=== PATIENT | male | born 1935 | race Caucasian/White ===

== ENCOUNTER → 2017-07-25 13:28 | Outpatient (CLI) | payer MEDICARE, SELFPAY ==
[2017-07-25 15:23] LABS: PSA,Total- Diagnostic 5.09 ng/mL (0.0-4.0)
== END ==
PROVIDERS: Visit Provider Urology
DX: N40.1 Benign prostatic hyperplasia with lower urinary tract symptoms (principal)
CPT/HCPCS: 36415; 84153

== ENCOUNTER → 2018-01-24 09:28 | Outpatient (CLI) | payer MEDICARE, SELFPAY ==
[2018-01-24 11:18] LABS: PSA,Total- Diagnostic 2.79 ng/mL (0.0-4.0)
== END ==
PROVIDERS: Family Provider Internal Medicine; PCP Internal Medicine; Visit Provider Urology
DX: C61 Malignant neoplasm of prostate (principal)
CPT/HCPCS: 84153

== ENCOUNTER 2018-08-04 11:00 | Outpatient (RCR) | payer MEDICARE, SELFPAY ==
--- NOTE | 2018-07-21 11:26 | HP.PTEVAL ---
Patient's Visit Information SNOW MURCIA is a 82 year old M referred to Physical Therapy by BIANKA RoweC with a diagnosis of DEGENERATIVE OF L-S INTERVERTEBRAL DISC,LUMBAR RADICULOPATHY,SPONDYLOTHESIS. Date of Evaluation: 07/21/18 Physical Therapist: Jesus Esteban, PT, Cert MDT, OCS - Visit Plan Frequency: 2x /Week Duration: 4 Weeks Plan: DLS,LUMBAR FLEXION,GRADED STRENGTHENING,POSTURAL EX'S ,MODALITIES NEEDED - Subjective Findings: This 82 y/o male presents to physical therapy with with low back pain with radicular symptoms.. Patient has had lumbar pain several years progressively worse past 2 years . Patient seen pain management to include 6 epidural injections,and burn injections. Patient symmtrical lumbar to lateral hip. Symptoms worse with walking standing affects ADL'S . Patient unable to walk for 10mins. Patient symptoms better siting. Coughing/sneezing-. Bowel/bladder good. C/O parathesia left hip -foot. Patient sleeping. Patient had MRI 3 years ago stenosis and disc involvement. Patient trying avoid surgery. Pateint pain affects QOL and function. Pateint has had PT. SOCIAL: . VOCATION: - Pain Bilateral Back Pain Intensity (Out of 10): 7 Pain Intensity Range: 10 Left Hip Pain Intensity (Out of 10): 7 Pain Intensity Range: 10 - Objective POSTURE: mild foward posture. GAIT: mild foward posture hips/knees flexed anatalgic gait. NEURO: c/o parathesia /tingling hip ,reflexes L3-4,L4-5,L5-S1 1/3. PALAPTION: unremarkable. SYMMTRIES: align. LUMBAR ROM: flexion min loss,extension mod/severe loss pain,side glides mod loss pain. FLEXABLITY: hams min tight. MMT: quads/hams 4/5 ,hip flexion 4-/5,hip abd 4-/5 ankle 4/5 - Special Tests L/S Slump test left side: Negative L/S Slump test right side: Negative L/S Left Straight Leg Raise: Negative L/S Right Straight Leg Raise: Negative - Goals Goal 1:: Independant with HEP Goal Time Frame: 4-6 Weeks Goal 2:: Patient to improve posture for ADL'S Goal Time Frame: 4-6 Weeks Goal 3:: Patient decrease lumbar pain and hip pain by 50% or greater to improve function with walking and standing Goal Time Frame: 4-6 Weeks Goal 4:: Patient to increase abilitity to perform walking and standing greater than 15 mis to improve functiobn Goal Time Frame: 4-6 Weeks Goal 5:: Patient to improve JASPER back score by 5 points or greater to improve function. - Rehabilitation Potential Physical Therapy Diagnosis: This patient has chronic lumbar pain with symptoms radiating to hip worse with walking ,standing affects ADL'S ,flexion better thus benifit from skilled PT Rehabilitation Potential: Good - Anticipated Interventions Patient/Client Instruction: Educate patient on: Condition, Plan of Care For the Purpose of:: To decrease pain, To increase ROM, To increase oxygenation perfusion, To improve muscle performance and motor function, To improve ability to perform ADL's, To increase tolerance to activity/condition/position, To improve performance and independence with ADL's, To improve ability of physical actions for home/community/work/leisure, To decrease soft tissue restriction, To increase flexibility/ROM, To improve endurance, To improve ability to perform tasks related to life management Therapeutic Exercise to Include: Strength training, Body mechanics, Postural training, Flexibilty training, Dynamic Lumbar Stabilization For the Purpose of:: To decrease pain, To increase ROM, To improve muscle performance and motor function, To increase tolerance to activity/condition/position, To improve ability of physical actions for home/community/work/leisure, To improve health of tissue, To decrease soft tissue restriction, To increase flexibility/ROM, To improve ability to perform tasks related to life management TENS: Yes IF ES: Yes Cryotherapy (ice pack, ice massage): Yes Thermo therapy (hot pack): Yes Ultrasound (thermal/non thermal): Yes For the Purpose of:: To decrease pain, To improve nutrient delivery to tissue, To increase oxygenation perfusion, To improve health of tissue, To decrease soft tissue restriction Thank you for the opportunity to evaluate your patient. For Medicare and Medicare HMO plans, please review the plan of care and approve it. It will need to be FAXED BACK to us at [phone] for Medicare purposes. For Medicare only, by signing this I certify the plan of care. Please let me know if there are questions or concerns regarding this plan of care. Physician Signature: Date:
--- NOTE | 2018-09-24 10:54 | HP.PT.NRP ---
HP - Discharge Summary (1) - Patient Information SNOW MURCIA was seen in my office for initial evaluation on 07/21/18. The following Plan of Care was established for this patient: Initial Frequency: 2x /Week Initial Duration: 4 Weeks - Anticipated Interventions Patient/Client Instruction: Educate patient on: Condition, Plan of Care For the Purpose of:: To decrease pain, To increase ROM, To increase oxygenation perfusion, To improve muscle performance and motor function, To improve ability to perform ADL's, To increase tolerance to activity/condition/position, To improve performance and independence with ADL's, To improve ability of physical actions for home/community/work/leisure, To decrease soft tissue restriction, To increase flexibility/ROM, To improve endurance, To improve ability to perform tasks related to life management Therapeutic Exercise to Include: Strength training, Body mechanics, Postural training, Flexibilty training, Dynamic Lumbar Stabilization For the Purpose of:: To decrease pain, To increase ROM, To improve muscle performance and motor function, To increase tolerance to activity/condition/position, To improve ability of physical actions for home/community/work/leisure, To improve health of tissue, To decrease soft tissue restriction, To increase flexibility/ROM, To improve ability to perform tasks related to life management TENS: Yes IF ES: Yes Cryotherapy (ice pack, ice massage): Yes Thermo therapy (hot pack): Yes Ultrasound (thermal/non thermal): Yes For the Purpose of:: To decrease pain, To improve nutrient delivery to tissue, To increase oxygenation perfusion, To improve health of tissue, To decrease soft tissue restriction This patient was last seen in our office 08/04/18. Pertinent comments regarding their Physical therapy will appear below: Patient seen for PT for back pain pain focusing on DLS,postural ex's,modalities,lumbar traction.Thus is d/c At this point I will be discontinuing this patient from physical therapy. I would be happy to see this patient again in the future if found appropriate by the physician. Thank you! Jesus Esteban, PT, Cert MDT, OCS
== END 2018-08-04 19:00 | disposition home or self-care (01) ==
LOC: PT 11:00
PROVIDERS: Family Provider Internal Medicine; PCP Internal Medicine; Referring Provider Nurse Practitioner Family; Visit Provider Nurse Practitioner Family
DX: M51.37 Other intervertebral disc degeneration, lumbosacral region (principal); M54.17 Radiculopathy, lumbosacral region; M47.817 Spondylosis without myelopathy or radiculopathy, lumbosacral region; M43.16 Spondylolisthesis, lumbar region; M46.96 Unspecified inflammatory spondylopathy, lumbar region; M79.10 Myalgia, unspecified site
CPT/HCPCS: 97035; 97110; 97162; 97530

== ENCOUNTER → 2018-08-14 09:45 | Outpatient (CLI) | payer MEDICARE, SELFPAY ==
--- NOTE | 2018-08-14 09:55 | RAD_ITS ---
STUDY: X-RAY CHEST REASON FOR EXAM: Male, 83 years old. COUGH, COLD SXs X 2 WEEKS TECHNIQUE: Frontal and lateral views of the chest. COMPARISON: 02/09/2013. FINDINGS: The lungs are clear and expanded. There is no demonstrated pleural abnormality. Normal size heart. Normal mediastinum and norma. Normal visualized pulmonary arteries. Normal visualized aortic arch and descending thoracic aorta. Normal visualized thoracic spine. Normal visualized ribs, clavicles, and shoulders. There is no demonstrated abnormality of the visualized soft tissue structures of the upper abdomen. RAD/Chest PA and Lateral IMPRESSION: Normal x-ray examination of the chest. Electronically Signed: Jose Manuel Singer MD at 19:31 EST , Service support ,
== END ==
PROVIDERS: Family Provider Internal Medicine; PCP Internal Medicine; Referring Provider Internal Medicine; Visit Provider Internal Medicine
DX: R05 Cough (principal)
CPT/HCPCS: 71046

== ENCOUNTER → 2018-09-19 11:02 | Outpatient (CLI) | payer MEDICARE, SELFPAY ==
--- NOTE | 2018-09-19 11:04 | VDLE_ITS ---
Reason For Study: pain RIGHT LEFT GSV is normal. GSV is normal. CFV is compressible, spontaneous, phasic, CFV is compressible, spontaneous, phasic, competent and demonstrates normal competent, and demonstrates normal augmentation. augmentation. FV is compressible, spontaneous, phasic, FV is compressible, spontaneous, phasic, competent and demonstrates normal competent and demonstrates normal augmentation. augmentation. POP V is compressible, spontaneous, phasic, POP V is compressible, spontaneous, phasic, competent and demonstrates normal competent and demonstrates normal augmentation. augmentation. T/P Trunk is compressible. T/P Trunk is compressible. PTV is compressible. PTV is compressible. RT PerV is compressible. LT PerV is compressible. Procedure Exam performed in department. The exam was diagnostic. A preliminary report was called and/or faxed to Dr. Arteaga @ [phone] @ 11:30 am. Interpretation Summary No evidence for acute deep venous thrombosis bilateral lower extremities with patent and compressible bilateral great saphenous veins. Ordering Physician: Rosette Arteaga Referring Physician: Rosette Arteaga Performed By: Divya Campos, RDTIFFANIE, RVT
== END ==
PROVIDERS: Family Provider Internal Medicine; PCP Internal Medicine; Referring Provider Internal Medicine; Visit Provider Internal Medicine
DX: M79.661 Pain in right lower leg (principal); M79.662 Pain in left lower leg
CPT/HCPCS: 93970

== ENCOUNTER → 2019-01-26 09:01 | Outpatient (CLI) | payer MEDICARE, SELFPAY ==
[2019-01-26 10:34] LABS: PSA,Total - Annual Screen 4.11 ng/mL (0.00-4.00)
== END ==
PROVIDERS: Family Provider Internal Medicine; PCP Internal Medicine; Referring Provider Urology; Visit Provider Urology
DX: Z12.5 Encounter for screening for malignant neoplasm of prostate (principal)
CPT/HCPCS: 36415; 84153; G0103

== ENCOUNTER 2019-03-11 10:11 | Emergency (ER) | payer MEDICARE, SELFPAY ==
[2019-03-11 10:13] VITALS: BP 167/79; PULSE 81; RESP 16; TEMP 36.8; O2SAT 98; BMI 28.3
--- NOTE | 2019-03-11 10:36 | CT_ITS ---
STUDY: CT BRAIN WITHOUT CONTRAST REASON FOR EXAM: Male, 83 years old. History of recent fall. RADIATION DOSAGE (If Supplied By Facility): CTDIvol = ( 60.81 ) mGy, DLP = ( 1089.89 ) mGycm TECHNIQUE: Transaxial CT imaging of the brain was performed without administration of intravenous contrast material. Individualized dose optimization techniques were used for this CT. COMPARISON: No relevant priors. FINDINGS: Normal soft tissue structures. Normal calvarium. There is mild cerebral atrophy with widening of the extra-axial spaces and ventricular dilatation. There are areas of decreased attenuation within the white matter tracts of the supratentorial brain, consistent with microvascular disease changes. Normal basal ganglia and thalami. Normal brainstem. There is mild cerebellar atrophy. There is no intracranial hemorrhage. There are no findings of an acute ischemic infarction. Atherosclerotic calcification of the vertebral arteries and cavernous portions of the internal carotid arteries bilaterally. Normal visualized paranasal sinuses. CT/Brain/Head without Contrast IMPRESSION: Chronic involutional changes of the brain. Electronically Signed: Dayne Little, at 11:30 EDT , Service support ,
--- NOTE | 2019-03-11 10:36 | CT_ITS ---
STUDY: CT CERVICAL SPINE WITHOUT CONTRAST REASON FOR EXAM: Male, 83 years old. Recent fall. RADIATION DOSAGE (If Supplied By Facility): CTDIvol = ( 31.25 ) mGy, DLP = ( 659.83 ) mGycm TECHNIQUE: High resolution transaxial imaging was performed without contrast material. Sagittal and coronal images were reconstructed. Individualized dose optimization techniques were used for this CT. COMPARISON: None FINDINGS: Normal craniovertebral junction. Normal anterior atlantoaxial articulation. Normal odontoid process. Normal cervical lordosis. Normal vertebral bodies and posterior osseous elements. C2-3: Mild degree of disc space narrowing. Facet joint osteoarthritis and hypertrophy. Uncovertebral arthrosis. Mild degree of left neural foraminal stenosis. C3-4: Moderate degree of disc space narrowing. Uncovertebral arthrosis and facet joint osteoarthritis. Moderate degree of bilateral neural foraminal stenosis. C4-5: Moderate degree of disc space narrowing. Uncovertebral arthrosis as well as posterior spondylosis worse on the left side. Moderate to severe degree of bilateral neural foraminal stenosis. C5-6: Marked degree of disc space narrowing. Spondylosis. Uncovertebral arthrosis. Marked degree of bilateral neural foraminal stenosis. C6-7: Marked degree of disc space narrowing. Spondylosis. Facet joint osteoarthritis. Marked degree of bilateral neural foraminal stenosis. Atherosclerotic calcification of the carotid bifurcations. CT/Spine Cervical without Contras IMPRESSION: Multilevel degenerative changes, as described above. Multilevel neural foraminal stenosis. Electronically Signed: Dayne Little, at 11:32 EDT , Service support ,
--- NOTE | 2019-03-11 10:36 | ED.VIS.GEN ---
History of Present Illness Chief Complaint: Head Injury Informant: Patient Onset: Days Current Severity: Mild Maximum Severity: Mild Narrative: Patient had a mechanical fall 3 days ago. He had surgery on his lumbar spine in September. As part of his rehab he has been going for walks. He states that while on a walk Saturday, he had an episode where his legs started to go too fast and he could not catch his balance. He fell into the grass. He struck the right side of his face and his right shoulder. He denies headache or loss of consciousness. He does have some neck pain. He called his orthopedic surgeon this morning who recommended he come in for some x-rays of his head and he has a follow-up appointment scheduled with them for another procedure in 2 weeks. Past Medical History - Allergies and Home Meds Allergies/Adverse Reactions: Allergies acetaminophen [From Percocet] Adverse Reaction (Verified 03/11/19 10:12) Other I DONT LIKE THE FEELING hydrocodone bitartrate [From Vicodin] Adverse Reaction (Verified 03/11/19 10:12) Other I DONT LIKE THE FEELING oxycodone HCl [From Percocet] Adverse Reaction (Verified 03/11/19 10:12) Other I DONT LIKE THE FEELING Sulfa (Sulfonamide Antibiotics) Adverse Reaction (Verified 03/11/19 10:12) Other FLUSHING AND TACHYCARDIA Primary Care Physician: Rosette Arteaga DO [Primary Care Provider] - Prior records reviewed: Yes Past Medical History: - - Reviewed Lives: Spouse/ Significant Other Smoking Status: Former smoker Review of Systems General: Denies: Chills, Fever Eyes: Denies: Visual changes - bilaterally ENT: Denies: Bilateral ear pain Cardiovascular: Denies: Chest pain, Palpitations, Heart racing Respiratory: Denies: Dyspnea, Cough Gastrointestinal: Denies: Abdominal pain, Nausea, Vomiting Genitourinary: Denies: Dysuria Musculoskeletal: Reports: Neck pain. Denies: Extremity Pain Skin: Reports: Abrasions Neurological: Denies: Headache Physical Exam Vital Signs/Narrative: Vital Signs Temp Pulse Resp BP Pulse Ox 03/11/19 10:13 98.3 F 81 16 167/79 H 98 Inital Vital Signs reviewed: Yes General: Well nourished, Well developed Head: Normocephalic, - - Abrasions to his right forehead and right maxilla. ENT: Moist mucous membranes Neck: Supple, - - Mild C-spine tenderness. Cardiovascular: Regular rate, Regular rhythm Respiratory: No distress, CTA bilaterally Abdomen: Soft, Nontender Back: Normal Inspection Extremities: Nontender Skin: - - Facial abrasions as above Neurological: Alert, Oriented x3, Normal Strength, Normal Sensation Psychological: Normal affect Diagnostic/Tx/Re-eval Impressions Brain CT 03/11/19 10:36 IMPRESSION: Chronic involutional changes of the brain. Electronically Signed: Dayne Anabel, at 11:30 EDT , Service support , Cervical Spine CT 03/11/19 10:36 IMPRESSION: Multilevel degenerative changes, as described above. Multilevel neural foraminal stenosis. Electronically Signed: Dayne Anabel, at 11:32 EDT , Service support , 03/11/19 10:36 CT Cervical [Spine Cervical without Contras] [CT] Stat CT Head [Brain/Head without Contrast] [CT] Stat - Medical Decision Making Test results discussed with the patient. He will follow-up with his orthopedic surgeon next week as scheduled. Please fax records to Dr Valencia, [facility] ED Disposition - Plan for ED Patient: Disposition: Home or Assisted Living Diagnosis: Facial contusion Instructions: FACIAL CONTUSION, No Wakeup Referrals: Rosette Arteaga DO [Primary Care Provider] - Additional Instructions: Follow-up with Dr Valencia as scheduled.
[2019-03-11 11:27] VITALS: RESP 14
== END 2019-03-11 12:14 | disposition home or self-care (01) ==
PROVIDERS: Emergency Provider Emergency Medicine; Family Provider Internal Medicine; PCP Internal Medicine
DX: S00.83XA Contusion of other part of head, initial encounter (principal); W01.0XXA Fall on same level from slipping, tripping and stumbling without subsequent striking against object, initial encounter; Y93.01 Activity, walking, marching and hiking; Y92.89 Other specified places as the place of occurrence of the external cause; Y99.9 Unspecified external cause status; M54.2 Cervicalgia; Z87.891 Personal history of nicotine dependence; Z88.2 Allergy status to sulfonamides; Z88.5 Allergy status to narcotic agent
CPT/HCPCS: 70450; 72125; 99282

== ENCOUNTER 2019-04-24 15:30 | Outpatient (RCR) | payer MEDICARE, SELFPAY ==
--- NOTE | 2019-03-26 18:37 | HP.PTEVAL_ITS ---
Patient's Visit Information ELIZABETH MURCIA is a 83 year old M referred to Physical Therapy by Brooklynn Stockton, [facility]-C with a diagnosis of BALANCE PROBLEMS. Date of Evaluation: 03/26/19 Physical Therapist: Jesus Esteban, PT, Cert MDT, OCS - Visit Plan Frequency: 2x /Week Duration: 4 Weeks Plan: H/O LUMBAR FUSION 2018. PT INTERVENTION BALANCE PROGRAM ,BLE STRENGTHENING /FLEXABILITY ,POSTUTRAL EX'S - Subjective Findings: This 83 y/o male presents to physical therapy with balance problems. Patient most recently underwent s/p lumbar laminectomy and fusion with srews/rods on September [address] Valencia. Patient had no PT because had no pain.Patient has no pain after surgery . Patient major issue is balance deficits with walking due to weak back and weakness in legs . Patient weakness /tired/fatigue in back and legs. Most recent fell foward 2 weeks ago leaning foward. Denies parathesia/tingling,occassional left foot..Bowel/bladder -. Patient sleeping okay at night. Prior to surgery had pain management with epidural.Symptoms become worse with extended walking /standing affects housework tasks /ADLS'. Patient condition affects QOL.COMORBITIES: BILATERAL TKR,Left THR. SOCIAL: . VOCATION: RETIRED Teacher - Objective POSTURE: mod foward posture. GAIT: reciprocal gait foward posture. NEURO: intact ,denies reflexes L3-4,L4-5,L5-S1 2/3. PALAPTION: unremarkable. FLEXA BLITY: hamstrings mod tight,hip flexor stretch mod. SYMMTICAL: symmtical. MMT: quads/hams 4/5,hip flexion 4-/5,hip abd 4-/5,ankle 4/5. LUMBAR ROM : flexion mod ,extension severe,side glides mod - Special Tests L/S Slump test left side: Negative L/S Slump test right side: Negative L/S Left Straight Leg Raise: Negative L/S Right Straight Leg Raise: Negative - Balance Scores Functional Gait Assessment Score: 21 % Disability: 30.0000 CATSIB Score (Max score 120 seconds): 75 - Goals Goal 1:: Patient to be I with HEP. Goal Time Frame: 4-6 Weeks Goal 2:: Patient to improve posture for ADLS' and function 75 % of the time. Goal Time Frame: 4-6 Weeks Goal 3:: Patient to increase strength BLE by 1/2 graded to improve function. Goal Time Frame: 4-6 Weeks Goal 4:: Patient to improve functional gait assessment by 5 points to improve balance/gait. Goal Time Frame: 4-6 Weeks Goal 5:: Patient to improve LFES score by 5-10 points to uimprove QOL/FUNCTION. Goal Time Frame: 4-6 Weeks - Rehabilitation Potential Physical Therapy Diagnosis: Patient underwent s/p lumbar fusion September 2018 ,patient has no pain . Patient c/o weakness in legs and back extended symptoms with faitigue/tired cuases foward posture along with balance deficits. Patient also has tight hip flexors and hams affects posture and gait. Rehabilitation Potential: Good - Anticipated Interventions Patient/Client Instruction: Educate patient on: Condition, Plan of Care For the Purpose of:: To decrease pain, To increase ROM, To improve ability to perform ADL's, To improve performance and independence with ADL's, To improve ability of physical actions for home/community/work/leisure, To improve gait and locomotor functions, To reduce risk of recurrence, To improve ability to perform tasks related to life management Therapeutic Exercise to Include: Strength training, Endurance training, Balance training, Dynamic Lumbar Stabilization Comment: BLE For the Purpose of:: To improve muscle performance and motor function, To improve ability to perform ADL's, To increase tolerance to activity/condition/position, To improve performance and independence with ADL's, To improve ability of physical actions for home/community/work/leisure, To improve gait and locomotor functions, To improve endurance, To improve balance, To improve ability to perform tasks related to life management Thank you for the opportunity to evaluate your patient. For Medicare and Medicare HMO plans, please review the plan of care and approve it. It will need to be FAXED BACK to us at [phone] for Medicare purposes. For Medicare only, by signing this I certify the plan of care. Please let me know if there are questions or concerns regarding this plan of care. Physician Signature: Date:
--- NOTE | 2019-04-24 16:16 | HP.PTDCSUM ---
HP - PT D/C Summary It has been my pleasure to treat ELIZABETH MURCIA under orders from Brooklynn Stockton NP-C, for the diagnosis of BALANCE PROBLEMS for a total of 9 visit(s). Discharge Date: 04/24/19 Please see the following information for a summary of their discharge status. - Subjective Subjective: Doing well .. no pain - Pain Lumbar Spine Pain Intensity (Out of 10): 0 - Overall Improvement % Improvement: 80 - Objective Objective/Function: POSTURE: mild foward posture. PALPATION: UNREMARKABLE. MMT: quads/hams/hip/nkle 4/5. LUMBAR ROM:flexion min loss ,extension min/mod loss,side g;ledes min loss - Goals Goal 1:: Patient to be I with HEP. Goal Progress: Goal Met Goal 2:: Patient to improve posture for ADLS' and function 75 % of the time. Goal Progress: Goal Met Goal 3:: Patient to increase strength BLE by 1/2 graded to improve function. Goal Progress: Goal Met Goal 4:: Patient to improve functional gait assessment by 5 points to improve balance/gait. Goal Progress: Goal Met Goal 5:: Patient to improve LFES score by 5-10 points to uimprove QOL/FUNCTION. Goal Progress: Goal Met - Plan Plan: D/C TO HEP - D/C Information Discharge Comments: GYM If there are questions or concerns regarding this patient's physical therapy, please feel free to call me at [phone]. Thank you for the referral of this patient. Sincerely, Jesus Esteban, PT, Cert MDT, OCS
== END 2019-04-24 19:00 | disposition home or self-care (01) ==
LOC: PT 15:30
PROVIDERS: Family Provider Internal Medicine; PCP Internal Medicine; Referring Provider Nurse Practitioner; Visit Provider Nurse Practitioner
DX: R26.89 Other abnormalities of gait and mobility (principal)
CPT/HCPCS: 97110; 97162

== ENCOUNTER → 2019-05-12 15:57 | Outpatient (CLI) | payer MEDICARE, SELFPAY | PROVIDERS: Family Provider Internal Medicine; PCP Internal Medicine; Referring Provider Internal Medicine; Visit Provider Internal Medicine | DX: J32.9 Chronic sinusitis, unspecified (principal) | CPT/HCPCS: 87070; 87077; 87186; 87205 ==

== ENCOUNTER → 2019-07-15 11:15 | Outpatient (CLI) | payer MEDICARE, SELFPAY ==
[2019-07-15 10:28] VITALS: BMI 29.2
[2019-07-15 12:36] LABS: Absolute Lymphocyte Count 1.63 X10^3/uL (0.83-4.51); Absolute Neutrophil Count 4.3 X10^3/uL (2.0-7.7); Basophil# 0.05 X10^3/uL; Basophil% 0.7 % (0-1); Eosinophil# 0.26 X10^3/uL; Eosinophils% 3.8 % (0-5); Hematocrit 46.1 % (40-54); Hemoglobin 15.1 g/dL (13.0-16.5); Lymphocyte # 1.63 X10^3/ul (4.0); Lymphocyte % 23.5 % (19-41); Mean Corp Hgb Conc 32.8 g/dL (32-36); Mean Corpuscular Hgb 30.7 pg (27.0-32.0); Mean Corpuscular Volume 93.7 fL (80-94); Mean Platelet Vol. 11.3 fl (6.2-12.0); Monocyte# 0.69 X10^3/uL; NRBC Flagged by Analyzer 0 % (0-5); Neutrophil # 4.27 X10^3/uL (2.7-7.7); Neutrophil % 61.6 % (47-70); Platelet Count 192 K/mm3 (150-450); RBC Distribution Width CV 14.2 % (11.6-14.6); RBC Distribution Width SD 48.7 fl (35.1-43.9); Red Blood Count 4.92 M/mm3 (4.6-6.2); White Blood Count 6.9 K/mm3 (4.4-11.0)
[2019-07-15 13:05] LABS: AST(SGOT) 18 U/L (15-37); Alanine Aminotransfer ALT/SGPT 25 U/L (16-61); Albumin, Serum 3.8 g/dL (3.2-5.0); Alkaline Phosphatase 80 U/L (45-117); Anion Gap 4 (5-15); BUN 27 mg/dL (7-18); BUN/Creat Ratio 24.1 RATIO (10-20); Chloride 107 mmol/L (98-107); Cholesterol 158 mg/dL (200); Creatinine, Serum 1.12 mg/dL (0.70-1.30); EST Glomerular Filtration Rate 66 mL/min (>60); Est Glom Filt Rate - Afr Amer 80 mL/min (>60); Globulin 3.8 g/dL (2.2-4.2); Glucose 98 mg/dL (74-106); High Density Lipoprotein 46 mg/dL; Potassium 4.3 mmol/L (3.5-5.1); Protein, Total 7.6 g/dL (6.4-8.2); Sodium Level 139 mmol/L (136-145); Triglycerides 69 mg/dL; Very Low Density Lipoprotein 14 mg/dL (5-40)
== END ==
PROVIDERS: PCP Internal Medicine; Referring Provider Internal Medicine; Visit Provider Internal Medicine
DX: I10 Essential (primary) hypertension (principal)
CPT/HCPCS: 36415; 80053; 80061; 85025

== ENCOUNTER 2019-07-23 11:00 | Outpatient (RCR) | payer MEDICARE, SELFPAY ==
[2019-05-22 10:23] VITALS: BMI 28.4
--- NOTE | 2019-06-22 12:31 | HP.PTEVAL_ITS ---
Patient's Visit Information SNOW MURCIA is a 83 year old M referred to Physical Therapy by BIANKA RomeroC with a diagnosis of ACUTE BILATERAL LOW BACK PAIN WITH SCIATICA. Date of Evaluation: 06/22/19 Physical Therapist: Jesus Esteban, PT, Cert MDT, OCS - Visit Plan Frequency: 2x /Week Duration: 4 Weeks Plan: PT INTERVENTIONS WITH DLS,LE FLEXABLITY,LE STRENGTHENING,POSTURAL EX'S - Subjective Findings: This 83 y/o male presents to physical therapy with LBP without sciatica. Patient had lumbar surgery with fusion last September 2018. Patient had prior PT in past. Patient had incidance when sitting down to couch felt pop in back . Patient pain symmrical LBP occassioanlly thigh.Pateint had back pain but progressively getting better. Patient had x-rays -looked good. Patient has had stiffness /tired with activities with satnding/walking 30 min with decrease endurance . Patient deneis parathesia/tingling -. Patient denies bowel/bladder-. Patient sleeping okay. Patient stiffness affects ADL'S ,housework impairs function.Patient symptoms affect QOL.PMH: BILATERAL TKR,LEFT THR. SOCIAL: . VOCATION: retired - Objective POSTURE: mild foward posture. GAIT: reciprocal pattern mild fowatrd posture. NEURO: denies parathesia/tingling,reflexes L3-4,L4-5,L5-S1 1/3. SYMMTRIES: align. LUMBAR ROM: flexion mod loss,extension severe ,side glides mod loss. FLEXABILITY: hams mod tight - Special Tests L/S Slump test left side: Negative L/S Slump test right side: Negative L/S Left Straight Leg Raise: Negative L/S Right Straight Leg Raise: Negative - Goals Goal 1:: Independant with HEP Goal Time Frame: 4-6 Weeks Goal 2:: Improve posture/body mechanics for ADL'S Goal Time Frame: 4-6 Weeks Goal 3:: Patient decrease lumbar pain by 50 % or > to improve function. Goal Time Frame: 4-6 Weeks Goal 4:: Patient improve backk owestry by 5 points or> to improve function, Goal Time Frame: 4-6 Weeks Goal 5:: Pateint improve lumbar ROM for function of recovery Goal Time Frame: 4-6 Weeks - Rehabilitation Potential Physical Therapy Diagnosis: Pateint has LBP with min radicular symptoms but symmptoms with fatigue ,stiffness in back with activities with standing and walking with 30 mins ,decrease ROM and strength impairs function. Rehabilitation Potential: Good - Anticipated Interventions Patient/Client Instruction: Educate patient on: Condition, Plan of Care For the Purpose of:: To decrease pain, To increase ROM, To improve muscle performance and motor function, To improve ability to perform ADL's, To increase tolerance to activity/condition/position, To improve ability of physical actions for home/community/work/leisure, To improve health of tissue, To decrease soft tissue restriction, To increase flexibility/ROM, To improve endurance, To improve ability to perform tasks related to life management Therapeutic Exercise to Include: Strength training, Body mechanics, Postural training, Flexibilty training, Dynamic Lumbar Stabilization For the Purpose of:: To decrease pain, To increase ROM, To improve muscle p erformance and motor function, To improve ability to perform ADL's, To increase tolerance to activity/condition/position, To improve ability of physical actions for home/community/work/leisure, To improve health of tissue, To decrease soft tissue restriction, To increase flexibility/ROM, To improve ability to perform tasks related to life management TENS: Yes IF ES: Yes Cryotherapy (ice pack, ice massage): Yes Thermo therapy (hot pack): Yes Ultrasound (thermal/non thermal): Yes For the Purpose of:: To decrease pain, To increase ROM, To improve nutrient delivery to tissue, To increase oxygenation perfusion, To improve health of tissue, To decrease soft tissue restriction Thank you for the opportunity to evaluate your patient. For Medicare and Medicare HMO plans, please review the plan of care and approve it. It will need to be FAXED BACK to us at [phone] for Medicare purposes. For Medicare only, by signing this I certify the plan of care. Please let me know if there are questions or concerns regarding this plan of care. Physician Signature: Date:
--- NOTE | 2019-07-23 11:28 | HP.PTDCSUM ---
HP - PT D/C Summary It has been my pleasure to treat SNOW MURCIA under orders from BIANKA RomeroC, for the diagnosis of ACUTE BILATERAL LOW BACK PAIN WITH SCIATICA for a total of 8 visit(s). Discharge Date: Please see the following information for a summary of their discharge status. - Subjective Subjective: Patient doing well .. No pain Improved - Pain Bilateral Back Pain Intensity (Out of 10): 0 - Overall Improvement % Improvement: 95 - Objective Objective/Function: POSTURE: mild foward posture. GAIT: reciprocal pattern mild foward posture. MMT: 4/5 BLE. FLEXABLITY: MIN/MOD TIGHT HAMS. LUMBAR ROM: flexion mod loss,extension mod/severe loss,side glides min ,loss - Goals Goal 1:: Independant with HEP Goal Progress: Goal Met Goal 2:: Improve posture/body mechanics for ADL'S Goal Progress: Goal Met Goal 3:: Patient decrease lumbar pain by 50 % or > to improve function. Goal Progress: Goal Met Goal 4:: Patient improve backk owestry by 5 points or> to improve function, Goal Progress: Goal Met Goal 5:: Pateint improve lumbar ROM for function of recovery Goal Progress: Goal Met - Plan Plan: D/C HEP AND HW - D/C Information If there are questions or concerns regarding this patient's physical therapy, please feel free to call me at [phone]. Thank you for the referral of this patient. Sincerely, Jesus Esteban, PT, Cert MDT, OCS
== END 2019-07-23 19:00 | disposition home or self-care (01) ==
LOC: PT 11:00
PROVIDERS: Family Provider Internal Medicine; PCP Internal Medicine; Referring Provider Nurse Practitioner; Visit Provider Nurse Practitioner
DX: M54.5 Low back pain (principal)
CPT/HCPCS: 97110; 97162

== ENCOUNTER → 2019-07-31 10:00 | Outpatient (CLI) | payer MEDICARE, SELFPAY ==
[2019-07-15 11:42] VITALS: BMI 28.4
[2019-07-31 11:18] LABS: PSA,Total- Diagnostic 3.66 ng/mL (0.0-4.0)
== END ==
PROVIDERS: PCP Internal Medicine; Referring Provider Urology; Visit Provider Urology
DX: C61 Malignant neoplasm of prostate (principal)
CPT/HCPCS: 36415; 84153

== ENCOUNTER → 2020-02-01 11:00 | Outpatient (CLI) | payer MEDICARE, SELFPAY ==
[2019-10-09 10:33] VITALS: BMI 28.7
[2020-02-01 12:03] LABS: PSA,Total- Diagnostic 3.58 ng/mL (0.0-4.0)
== END ==
PROVIDERS: PCP Internal Medicine; Referring Provider Urology; Visit Provider Urology
DX: C61 Malignant neoplasm of prostate (principal)
CPT/HCPCS: 36415; 84153

== ENCOUNTER → 2020-05-16 09:29 | Outpatient (CLI) | payer MEDICARE, SELFPAY ==
[2020-03-30 11:01] VITALS: BMI 29.2
[2020-05-16 10:36] LABS: Absolute Lymphocyte Count 1.57 X10^3/uL (0.83-4.51); Absolute Neutrophil Count 5.3 X10^3/uL (2.0-7.7); Basophil# 0.05 X10^3/uL; Basophil% 0.6 % (0-1); Eosinophil# 0.24 X10^3/uL; Eosinophils% 3.1 % (0-5); Hematocrit 47.1 % (40-54); Lymphocyte # 1.57 X10^3/ul (4.0); Mean Corp Hgb Conc 31.8 g/dL (32-36); Mean Corpuscular Hgb 29.8 pg (27.0-32.0); Mean Corpuscular Volume 93.6 fL (80-94); Mean Platelet Vol. 11.5 fl (6.2-12.0); Monocyte% 8.9 % (0-10); NRBC Flagged by Analyzer 0 % (0-5); Neutrophil # 5.26 X10^3/uL (2.7-7.7); Platelet Count 195 K/mm3 (150-450); RBC Distribution Width CV 14.3 % (11.6-14.6); RBC Distribution Width SD 49.1 fl (35.1-43.9); Red Blood Count 5.03 M/mm3 (4.6-6.2); White Blood Count 7.9 K/mm3 (4.4-11.0)
[2020-05-16 11:02] LABS: ALB/GLOB Ratio 1.1 RATIO (0.9-2.4); AST(SGOT) 18 U/L (15-37); Alanine Aminotransfer ALT/SGPT 20 U/L (16-61); Alkaline Phosphatase 88 U/L (45-117); Anion Gap 3 (5-15); BUN 21 mg/dL (7-18); BUN/Creat Ratio 18.9 RATIO (10-20); Calcium,Total 9.1 mg/dL (8.5-10.1); Chloride 108 mmol/L (98-107); Cholesterol 155 mg/dL (200); Creatinine, Serum 1.11 mg/dL (0.70-1.30); EST Glomerular Filtration Rate 67 mL/min (>60); Est Glom Filt Rate - Afr Amer 81 mL/min (>60); Globulin 3.7 g/dL (2.2-4.2); Glucose 102 mg/dL (74-106); High Density Lipoprotein 50 mg/dL; Potassium 3.9 mmol/L (3.5-5.1); Protein, Total 7.7 g/dL (6.4-8.2); Sodium Level 139 mmol/L (136-145); Triglycerides 84 mg/dL; Very Low Density Lipoprotein 17 mg/dL (5-40)
== END ==
PROVIDERS: PCP Internal Medicine; Referring Provider Internal Medicine Cardiovascular Disease; Visit Provider Internal Medicine Cardiovascular Disease
DX: I10 Essential (primary) hypertension (principal); Z86.39 Personal history of other endocrine, nutritional and metabolic disease
CPT/HCPCS: 36415; 80053; 80061; 85025

== ENCOUNTER → 2020-09-26 11:01 | Outpatient (CLI) | payer MEDICARE, SELFPAY ==
[2020-09-26 10:38] VITALS: BMI 28.8
[2020-09-26 12:33] LABS: Anion Gap 3 (5-15); BUN 29 mg/dL (7-18); BUN/Creat Ratio 26.6 RATIO (10-20); Calcium,Total 8.7 mg/dL (8.5-10.1); Chloride 107 mmol/L (98-107); Creatinine, Serum 1.09 mg/dL (0.70-1.30); EST Glomerular Filtration Rate 68 mL/min (>60); Est Glom Filt Rate - Afr Amer 83 mL/min (>60); Glucose 91 mg/dL (74-106); Potassium 4.3 mmol/L (3.5-5.1); Sodium Level 138 mmol/L (136-145)
== END ==
PROVIDERS: PCP Internal Medicine; Visit Provider Internal Medicine
DX: I10 Essential (primary) hypertension (principal)
CPT/HCPCS: 36415; 80048

== ENCOUNTER → 2021-02-09 10:45 | Outpatient (CLI) | payer MEDICARE, SELFPAY | PROVIDERS: PCP Internal Medicine; Visit Provider Nurse Practitioner Adult Health | DX: C61 Malignant neoplasm of prostate (principal) | CPT/HCPCS: 36415; 84153 ==

== ENCOUNTER → 2021-03-28 11:51 | Outpatient (CLI) | payer MEDICARE, SELFPAY ==
[2021-03-28 15:02] LABS: Absolute Lymphocyte Count 1.23 X10^3/uL (0.83-4.51); Absolute Neutrophil Count 4.9 X10^3/uL (2.0-7.7); Basophil# 0.04 X10^3/uL; Basophil% 0.6 % (0-1); Eosinophil# 0.17 X10^3/uL; Eosinophils% 2.5 % (0-5); Hemoglobin 14.8 g/dL (13.0-16.5); Lymphocyte # 1.23 X10^3/ul (0.83-4.51); Lymphocyte % 17.8 % (19-41); Mean Corp Hgb Conc 32.9 g/dL (32-36); Mean Corpuscular Hgb 30.5 pg (27.0-32.0); Mean Corpuscular Volume 92.8 fL (80-94); Mean Platelet Vol. 11.2 fl (6.2-12.0); Monocyte# 0.57 X10^3/uL; Monocyte% 8.2 % (0-10); NRBC Flagged by Analyzer 0 % (0-5); Neutrophil # 4.87 X10^3/uL (2.7-7.7); Neutrophil % 70.5 % (47-70); Platelet Count 181 K/mm3 (150-450); RBC Distribution Width CV 14.4 % (11.6-14.6); RBC Distribution Width SD 48.7 fl (35.1-43.9); Red Blood Count 4.85 M/mm3 (4.6-6.2); White Blood Count 6.9 K/mm3 (4.4-11.0)
[2021-03-28 15:40] LABS: AST(SGOT) 19 U/L (15-37); Alanine Aminotransfer ALT/SGPT 22 U/L (16-61); Albumin, Serum 3.8 g/dL (3.2-5.0); Alkaline Phosphatase 66 U/L (45-117); Anion Gap 6 (5-15); BUN 23 mg/dL (7-18); BUN/Creat Ratio 21.1 RATIO (10-20); Calcium,Total 8.8 mg/dL (8.5-10.1); Chloride 106 mmol/L (98-107); Creatinine, Serum 1.09 mg/dL (0.70-1.30); EST Glomerular Filtration Rate 68 mL/min (>60); Est Glom Filt Rate - Afr Amer 82 mL/min (>60); Globulin 3.7 g/dL (2.2-4.2); Glucose 95 mg/dL (74-106); Potassium 4.4 mmol/L (3.5-5.1); Protein, Total 7.5 g/dL (6.4-8.2); Sodium Level 138 mmol/L (136-145)
== END ==
PROVIDERS: PCP Internal Medicine; Referring Provider Internal Medicine; Visit Provider Internal Medicine
DX: I10 Essential (primary) hypertension (principal)
CPT/HCPCS: 36415; 80053; 85025

== ENCOUNTER → 2021-05-02 18:24 | Outpatient (CLI) | payer MEDICARE, SELFPAY | PROVIDERS: PCP Internal Medicine; Visit Provider Urology | DX: R31.0 Gross hematuria (principal) | CPT/HCPCS: 87086; 87088; 87186 ==

== ENCOUNTER 2021-08-15 10:48 | Outpatient (CLI) | payer MEDICARE, SELFPAY ==
--- NOTE | 2021-08-15 10:51 | CDU_ITS ---
Reason For Study: loss of vision Rt. Velocities/BP Lt. Velocities/BP Prox CCA 83.9/14.7 cm/sec. Prox CCA 113.8/12.1 cm/sec. Mid CCA 93.0/22.6 cm/sec. Mid CCA 103.4/14.7 cm/sec. Dist CCA 86.5/21.3 cm/sec. Dist CCA 103.4/13.4 cm/sec. Prox ICA 73.4/14.7 cm/sec. Prox ICA 56.9/9.2 cm/sec. Mid ICA 79.9/20.0 cm/sec. Mid ICA 76.0/23.9 cm/sec. Dist ICA 86.5/26.5 cm/sec. Dist ICA 83.8/21.3 cm/sec. Rt. ICA/CCA = .9. Lt. ICA/CCA = .8. Prox ECA 77.3/8.2 cm/sec. Prox ECA 94.3/12.1 cm/sec. Rt. Vert. 48.6/13.4 cm/sec. Lt. Vert. 48.7/11.3 cm/sec. Right Extracranial There is homogeneous, smooth atherosclerotic plaque noted in the right common carotid artery. There is heterogeneous, irregular atherosclerotic plaque noted in the right internal carotid artery. There is heterogeneous, irregular atherosclerotic plaque noted in the right external carotid artery. Antegrade flow is noted in the right vertebral artery. Left Extracranial There is homogeneous, smooth atherosclerotic plaque noted in the left common carotid artery. There is heterogeneous, irregular atherosclerotic plaque noted in the left internal carotid artery. There is intimal thickening but no significant atherosclerotic plaque noted in the left external carotid artery. Antegrade flow is noted in the left vertebral artery. Procedure Carotid Duplex 02291. This is a Carotid Duplex examination using B-mode, color flow and specral Doppler. The exam was diagnostic. Exam performed in department. VL/Carotid Duplex Ultrasound Interpretation Summary Mostly smooth plaque at the origin of the right internal carotid artery with le ss than 50% stenosis. Less than 50% stenosis right external carotid artery Minimal calcific plaque of the proximal left internal carotid artery with less than 50% stenosis Less than 50% stenosis left external carotid artery Patent and antegrade vertebral arteries bilaterally Ordering Physician: Jenna Song Performed By: Fede Lam RVT
== END 2021-08-15 23:59 | disposition home or self-care (01) ==
PROVIDERS: PCP Internal Medicine; Referring Provider Physician Assistant Medical; Visit Provider Physician Assistant Medical
DX: H53.122 Transient visual loss, left eye (principal)
CPT/HCPCS: 93880

== ENCOUNTER 2021-08-18 10:50 | Outpatient (CLI) | payer MEDICARE, SELFPAY ==
[2021-08-18 13:20] LABS: PSA,Total- Diagnostic 2.44 ng/mL (0.0-4.0)
== END 2021-08-18 23:59 | disposition home or self-care (01) ==
LOC: LAB 10:52
PROVIDERS: PCP Internal Medicine; Visit Provider Urology
DX: C61 Malignant neoplasm of prostate (principal)
CPT/HCPCS: 36415; 84153

== ENCOUNTER 2022-01-04 22:57 | Emergency (ER) | payer MEDICARE, SELFPAY ==
[2022-01-04 22:58] VITALS: BP 159/80; PULSE 61; RESP 16; TEMP 36.9; O2SAT 99; BMI 61.9
[2022-01-04 23:29] LABS: Squamous Epithelial Cells - UA 0 SEEN /hpf (0-5)
[2022-01-04 23:30] LABS: Color, Urine Yellow (Yellow); Glucose, Dipstick Normal (Normal); Ketone-Dipstick Negative (Negative); Leukocyte Esterase-Dipstick 500 /ul (Negative); Nitrite-Dipstick Negative (Negative); Occult Blood-Urine 25 /ul (Negative); Protein-Dipstick 100 mg/dl (Negative); Specific Gravity, Urine 1.015 (1.002-1.030); Urine Bilirubin Dipstick Negative (Negative); Urine Clarity Clear (Clear); Urine Urobilinogen 4 mg/dl (Normal)
--- NOTE | 2022-01-04 23:30 | RAD_ITS ---
EXAM: XR CHEST, 1 VIEW CLINICAL INDICATION: cough TECHNIQUE: Frontal view of the chest. This report was created using [employer] report generation technology. COMPARISON: 08/14/2018 FINDINGS: LUNGS AND PLEURAL SPACES: Unremarkable. No consolidation or edema. No pneumothorax. No effusion. HEART: Unremarkable. Cardiac silhouette not enlarged. MEDIASTINUM: Central airways and mediastinal contour are unremarkable. BONES/JOINTS: Unremarkable. SOFT TISSUES: Unremarkable. UPPER ABDOMEN: There is elevation of the right hemidiaphragm. RAD/Chest 1 View (Portable) IMPRESSION: No acute findings in the chest. Electronically Signed: Pramod Ponce MD at 23:54 EDT ,
--- NOTE | 2022-01-04 23:32 | EX.ED.DYSGE1 ---
HPI History of Present Illness Chief Complaint: General Illness Narrative Narrative: Patient is an 86-year-old male with past medical history of hypertension hyperlipidemia and BPH. He states he was at home this evening when he began having the shaking chills. He states he then began to feel extremely hot. He took his temperature and states it was elevated 102. He states following this he took some aspirin. He states that he has had urinary frequency but no dysuria. He denies any abdominal pain cough congestion or shortness of breath. He states he was concerned about COVID even though he is fully vaccinated and booster denies any sick contacts and secondary to this comes in for evaluation. [facility] Medical History Actinic keratosis Arthritis BPH (benign prostatic hyperplasia) Cancer Cataracts, bilateral Chronic headaches Enlarged prostate with lower urinary tract symptoms (LUTS) Essential (primary) hypertension GI bleed Health care maintenance Heart disease High blood pressure History of back problems History of blood transfusion History of hyperlipidemia Melanoma Night terrors, adult Obstructive sleep apnea REY (obstructive sleep apnea) Osteoarthritis Paroxysmal supraventricular tachycardia Premature ventricular contractions Skin cancer Vascular lesion of left lower eyelid Home Medications cholecalciferol (vitamin D3) 25 mcg (1,000 unit) tablet 2,000 unit PO DAILY 07/05/15 [History Last Taken Unknown] multivitamin 1 ea PO DAILY 07/05/15 [History Last Taken Unknown] clonazepam 1 mg tablet 1 mg PO QHS #30 tabs 05/22/19 [History Last Taken Unknown] saw palmetto 80 mg capsule 160 mg PO BID 05/22/19 [History Last Taken Unknown] zinc 50 mg tablet 50 mg PO DAILY 05/22/19 [History Last Taken Unknown] tamsulosin 0.4 mg capsule (Flomax) 0.4 mg PO DAILY 03/28/21 [History Last Taken Unknown] lisinopril 20 mg tablet 20 mg PO BID #180 tabs 10/23/21 [Rx Last Taken Unknown] metoprolol tartrate 25 mg tablet 25 mg PO BID #180 tabs 10/23/21 [Rx Last Taken Unknown] cephalexin 500 mg capsule 500 mg PO TID 7 days #21 caps 01/05/22 [Rx Last Taken Unknown] Allergy/AdvReac Type Severity Reaction Status Date / Time levofloxacin Allergy Unknown Unknown Verified 01/04/22 23:03 acetaminophen [From Percocet] AdvReac Other Verified 01/04/22 23:03 hydrocodone bitartrate AdvReac Other Verified 01/04/22 23:03 [From Vicodin] oxycodone HCl [From Percocet] AdvReac Other Verified 01/04/22 23:03 Sulfa (Sulfonamide AdvReac Other Verified 01/04/22 23:03 Antibiotics) antihistamines AdvReac Unknown Uncoded 01/04/22 23:03 Family History Father Heart disease Arthritis CAD (coronary artery disease) Brother CVA (cerebral vascular accident) Parkinson disease Mother Arthritis Surgical History History of herniorrhaphy History of left hip replacement (2012) History of left knee replacement History of lumbosacral spine surgery (09/2018) History of right knee joint replacement History of total right hip replacement (2011) Social History Smoking Status: Never smoker alcohol intake: current alcohol intake frequency: holidays/special occasions only Alcohol type: beer what type of physical activity do you participate in: walking frequency: 1-2 times per week duration: 15-30 minutes/day ROS ROS ED Constitutional Constitutional ED: Reports chills and fever(s) ENT ENT ED: Denies sore throat Cardiovascular Cardiovascular: Denies chest pain Respiratory/Chest Respiratory/Chest: Denies cough or dyspnea Gastrointestinal Gastrointestinal: Denies abdominal pain, diarrhea, nausea or vomiting Genitourinary Genitourinary ED: Reports urinary frequency; Denies dysuria Musculoskeletal Musculoskeletal: Denies myalgias Integumentary Denies rash Neurologic Neurologic: Denies headache(s) Hematologic/Lymphatic Hematologic/Lymphatic: Denies easy bleeding or easy bruising EXAM Physical Exam Const Vital Signs: 01/04/22 22:58 01/04/22 23:08 01/05/22 00:53 Temperature 98.5 F 99 F Temperature Source Temporal Pulse Rate 61 69 Respiratory Rate 16 16 Respiratory Effort Normal Non-Labored Respiratory Pattern Normal Blood Pressure 159/80 H Blood Pressure Mean 106 Pulse Ox 99 Oxygen Delivery Method Room Air Positive well nourished and well developed General Appearance ED: well developed HEENT Reports moist mucous membranes Eyes PERRL and EOMs intact bilaterally Neck supple Resp normal respiratory effort and clear to auscultation bilaterally Cardio regular rate and regular rhythm GI normal to inspection, nondistended, normoactive bowel sounds, non-tender and non-distended Auscultation: normoactive bowel sounds Palpation: soft Extremity normal to inspection Neuro oriented x3 and CN's II-XII intact bilaterally Sensorium / Orientation: alert Psych mental status grossly normal Skin no rashes or lesions noted MDM MDM MDM Narrative Medical decision making narrative: Patient presented to the ER afebrile and in no acute distress. He reported taking aspirin prior to arrival which could have reduce the fever he noted at home. With his reported temperature of 102 there was concern he is developed COVID therefore COVID and influenza swab were obtained. The patient did not have respiratory symptoms but in order to ensure there was no underlying pneumonia chest x-ray was ordered as well. As he reported he was having urinary frequency also elected to check a urine sample. Patient's influenza and COVID test were negative. Chest x-ray showed no acute pathology. The urine sample did show multiple white blood cells with rare bacteria. This can be considered sterile pyuria but patient does not have an appendix and therefore I have no concern for underlying appendicitis. He denies any rectal pain or discharge and therefore I do not feel this is related to acute prostatitis. I do feel this is start of an early urinary tract infection based on his urinary frequency and white blood cells in the urine sample. Therefore the urine be sent for culture and patient will be started on antibiotics. Without vital sign derangement or alteration of mental status I do not feel patient is developing any type of systemic infection and therefore will treat on an outpatient basis Lab Data Attestation: I reviewed the patient's lab results. Labs: Laboratory Results - last 24 hr 01/04/22 23:10 Urine Color Yellow Urine Clarity Clear Urine pH 6.0 Ur Specific [place] 1.015 Urine Protein 100 H Urine Glucose (UA) Normal Urine Ketones Negative Urine Occult Blood 25 H Urine Nitrite Negative Urine Bilirubin Negative Urine Urobilinogen 4 H Ur Leukocyte Esterase 500 H Urine RBC 0-5 SEEN Urine WBC 50-100 SEEN Ur Squamous Epith Cells 0 SEEN Urine Bacteria RARE Urine Mucus RARE Radiography Diagnostic Testing: Clinical Impression(s) from Imaging Studies Chest X-Ray 01/04/22 23:30 IMPRESSION: No acute findings in the chest. Electronically Signed: Pramod Ponce MD at 23:54 EDT , Chest x-ray as interpreted by the emergency medicine physician reveals no acute infiltrate pneumothorax or pleural effusion Discharge Plan Triage Chief Complaint: General Illness ED Provider: Hernandez Molina Dx/Rx/DC Orders Clinical Impression: UTI (urinary tract infection) Instructions: Urinary Tract Infections in Men Prescriptions: New cephalexin 500 mg capsule 500 mg PO TID 7 Days Qty: 21 0RF No Action saw palmetto 80 mg capsule 80 mg capsule 160 mg PO BID clonazepam 1 mg tablet 1 mg PO QHS Qty: 30 Label Comments: TAKE 1 TABLET BY MOUTH EVERYDAY AT BEDTIME zinc 50 mg tablet 50 mg PO DAILY tamsulosin [Flomax] 0.4 mg capsule 0.4 mg PO DAILY multivitamin 1 EACH tablet 1 ea PO DAILY cholecalciferol (vitamin D3) 1,000 UNIT tablet 2,000 unit PO DAILY lisinopril 20 mg tablet 20 mg PO BID Qty: 180 4RF metoprolol tartrate 25 mg tablet 25 mg PO BID Qty: 180 4RF Primary Care Provider: Aubrie Murguia Referrals: Aubrie Murguia MD [Primary Care Provider] - Activity Restrictions/Additional Instructions: Please take your antibiotics as directed to help resolve your urinary tract infection. If you are having no improvement of symptoms over the next 2 to 3 days please return to the ER for repeat evaluation Disposition Disposition: Home, Self Care Discharge Date/Time: 01/05/22 00:54
[2022-01-04 23:55] LABS: Bacteria RARE /hpf (None Seen); Mucous, Urine RARE /hpf (<or=2+); Red Blood Cells-Urine 0-5 SEEN /hpf (0-5); White Blood Cells 50-100 SEEN /hpf (0-5)
[2022-01-05] MEDS: Ceftriaxone 1 GM Vial IM (00:38)
[2022-01-05 00:53] VITALS: PULSE 69; RESP 16; TEMP 37.2
== END 2022-01-05 00:54 | disposition home or self-care (01) ==
PROVIDERS: Emergency Provider Emergency Medicine; PCP Internal Medicine; Visit Provider Emergency Medicine
DX: N39.0 Urinary tract infection, site not specified (principal); E78.5 Hyperlipidemia, unspecified; I10 Essential (primary) hypertension; G47.33 Obstructive sleep apnea (adult) (pediatric); N40.0 Benign prostatic hyperplasia without lower urinary tract symptoms
CPT/HCPCS: 71045; 81001; 87086; 87088; 87428; 99282

== ENCOUNTER → 2022-02-20 | Outpatient (CLI) | payer MEDICARE, SELFPAY ==
[2022-02-20 12:35] LABS: PSA,Total- Diagnostic 4.28 ng/mL (0.0-4.0)
== END | disposition home or self-care (01) ==
PROVIDERS: PCP Internal Medicine; Referring Provider Registered Nurse; Visit Provider Registered Nurse
DX: C61 Malignant neoplasm of prostate (principal)
CPT/HCPCS: 36415; 84153

== ENCOUNTER → 2022-03-30 | Outpatient (CLI) | payer MEDICARE, SELFPAY ==
[2022-03-30 12:39] LABS: Absolute Lymphocyte Count 1.12 X10^3/uL (0.83-4.51); Absolute Neutrophil Count 4.2 X10^3/uL (2.0-7.7); Basophil# 0.04 X10^3/uL; Basophil% 0.7 % (0-1); Eosinophil# 0.17 X10^3/uL; Eosinophils% 2.8 % (0-5); Hematocrit 42.7 % (40-54); Hemoglobin 14.2 g/dL (13.0-16.5); Lymphocyte # 1.12 X10^3/ul (0.83-4.51); Lymphocyte % 18.7 % (19-41); Mean Corp Hgb Conc 33.3 g/dL (32-36); Mean Corpuscular Hgb 31.3 pg (27.0-32.0); Mean Corpuscular Volume 94.3 fL (80-94); Mean Platelet Vol. 11.8 fl (6.2-12.0); Monocyte# 0.47 X10^3/uL; Monocyte% 7.8 % (0-10); NRBC Flagged by Analyzer 0 % (0-5); Neutrophil # 4.18 X10^3/uL (2.7-7.7); Neutrophil % 69.7 % (47-70); Platelet Count 149 K/mm3 (150-450); RBC Distribution Width CV 14.7 % (11.6-14.6); RBC Distribution Width SD 51.1 fl (35.1-43.9); Red Blood Count 4.53 M/mm3 (4.6-6.2)
[2022-03-30 13:04] LABS: ALB/GLOB Ratio 1.1 RATIO (0.9-2.4); AST(SGOT) 18 U/L (15-37); Alanine Aminotransfer ALT/SGPT 24 U/L (16-61); Albumin, Serum 3.8 g/dL (3.2-5.0); Alkaline Phosphatase 65 U/L (45-117); Anion Gap 5 (5-15); BUN 23 mg/dL (7-18); BUN/Creat Ratio 21.7 RATIO (10-20); Calcium,Total 8.8 mg/dL (8.5-10.1); Chloride 109 mmol/L (98-107); Cholesterol 129 mg/dL (200); Creatinine, Serum 1.06 mg/dL (0.70-1.30); EST Glomerular Filtration Rate 70 mL/min (>60); Est Glom Filt Rate - Afr Amer 85 mL/min (>60); Globulin 3.4 g/dL (2.2-4.2); Glucose 105 mg/dL (74-106); High Density Lipoprotein 46 mg/dL; Potassium 4.5 mmol/L (3.5-5.1); Protein, Total 7.2 g/dL (6.4-8.2); Sodium Level 141 mmol/L (136-145); Triglycerides 41 mg/dL; Very Low Density Lipoprotein 8 mg/dL (5-40)
== END | disposition home or self-care (01) ==
LOC: BIMLAB 10:18
PROVIDERS: PCP Internal Medicine; Referring Provider Internal Medicine; Visit Provider Internal Medicine
DX: I10 Essential (primary) hypertension (principal)
CPT/HCPCS: 36415; 80053; 80061; 85025

== ENCOUNTER → 2022-09-24 | Outpatient (CLI) | payer MEDICARE, SELFPAY ==
[2022-09-24 12:50] LABS: Anion Gap 3 (5-15); BUN 30 mg/dL (7-18); BUN/Creat Ratio 28.3 RATIO (10-20); Calcium,Total 8.9 mg/dL (8.5-10.1); Chloride 109 mmol/L (98-107); Creatinine, Serum 1.06 mg/dL (0.70-1.30); EST Glomerular Filtration Rate 70 mL/min (>60); Est Glom Filt Rate - Afr Amer 85 mL/min (>60); Glucose 101 mg/dL (74-106); Potassium 4.6 mmol/L (3.5-5.1); Sodium Level 139 mmol/L (136-145)
== END | disposition home or self-care (01) ==
LOC: BIMLAB 11:01
PROVIDERS: PCP Internal Medicine; Referring Provider Internal Medicine; Visit Provider Internal Medicine
DX: I10 Essential (primary) hypertension (principal)
CPT/HCPCS: 36415; 80048

== ENCOUNTER → 2022-10-10 | Outpatient (CLI) | payer MEDICARE, SELFPAY | END | disposition home or self-care (01) | LOC: PSN 12:19 | PROVIDERS: PCP Internal Medicine; Referring Provider Physician Assistant Medical; Visit Provider Physician Assistant Medical | DX: R00.1 Bradycardia, unspecified (principal) | CPT/HCPCS: 93225; 93226 ==

== ENCOUNTER → 2023-02-21 | Outpatient (CLI) | payer MEDICARE, SELFPAY ==
[2023-02-21 11:40] LABS: PSA,Total- Diagnostic 5.07 ng/mL (0.0-4.0)
== END | disposition home or self-care (01) ==
PROVIDERS: PCP Internal Medicine; Referring Provider Urology; Visit Provider Urology
DX: C61 Malignant neoplasm of prostate (principal)
CPT/HCPCS: 36415; 84153

== ENCOUNTER → 2023-03-27 | Outpatient (CLI) | payer MEDICARE, SELFPAY ==
[2023-03-27 12:25] LABS: Absolute Lymphocyte Count 1.45 X10^3/uL (0.83-4.51); Absolute Neutrophil Count 4.8 X10^3/uL (2.0-7.7); Basophil# 0.05 X10^3/uL; Basophil% 0.7 % (0-1); Eosinophil# 0.19 X10^3/uL; Eosinophils% 2.7 % (0-5); Hematocrit 44.6 % (40-54); Hemoglobin 14.3 g/dL (13.0-16.5); Lymphocyte # 1.45 X10^3/ul (0.83-4.51); Lymphocyte % 20.4 % (19-41); Mean Corp Hgb Conc 32.1 g/dL (32-36); Mean Corpuscular Volume 96.7 fL (80-94); Mean Platelet Vol. 10.9 fl (6.2-12.0); Monocyte# 0.56 X10^3/uL; Monocyte% 7.9 % (0-10); NRBC Flagged by Analyzer 0 % (0-5); Neutrophil # 4.83 X10^3/uL (2.7-7.7); Platelet Count 149 K/mm3 (150-450); RBC Distribution Width CV 13.9 % (11.6-14.6); RBC Distribution Width SD 49.5 fl (35.1-43.9); Red Blood Count 4.61 M/mm3 (4.6-6.2); White Blood Count 7.1 K/mm3 (4.4-11.0)
[2023-03-27 12:53] LABS: ALB/GLOB Ratio 1.3 RATIO (0.9-2.4); AST(SGOT) 19 U/L (15-37); Alanine Aminotransfer ALT/SGPT 26 U/L (16-61); Albumin, Serum 3.9 g/dL (3.2-5.0); Alkaline Phosphatase 61 U/L (45-117); Anion Gap 3 (5-15); BUN 26 mg/dL (7-18); BUN/Creat Ratio 22.8 RATIO (10-20); Calcium,Total 8.9 mg/dL (8.5-10.1); Chloride 108 mmol/L (98-107); Creatinine, Serum 1.14 mg/dL (0.70-1.30); EST Glomerular Filtration Rate 64 mL/min (>60); Est Glom Filt Rate - Afr Amer 78 mL/min (>60); Glucose 103 mg/dL (74-106); Potassium 4.5 mmol/L (3.5-5.1); Protein, Total 6.9 g/dL (6.4-8.2); Sodium Level 138 mmol/L (136-145)
== END | disposition home or self-care (01) ==
LOC: BIMLAB 10:57
PROVIDERS: PCP Internal Medicine; Visit Provider Internal Medicine
DX: I10 Essential (primary) hypertension (principal); I49.3 Ventricular premature depolarization
CPT/HCPCS: 36415; 80053; 85025

== ENCOUNTER → 2023-07-26 | Outpatient (CLI) | payer MEDICARE, SELFPAY ==
--- OUTSIDE RECORDS SUMMARY | 2023-07-26 11:59 | XMS RPT_ITS | CCD ---
Author Name Unknown Address [address] [place] [address] Organization [facility] Care Team Providers Care Plywood Scarfer Tender Name Role Phone LOPEZJOSEPH NAZARIONETH E Unavailable Unavailable LOPEZ LAYO E Unavailable Unavailable LOPEZ, LAYO Unavailable Unavailable LOPEZ, LAYO Unavailable Unavailable LOPEZ, LAYO Unavailable Unavailable LOPEZ LAYO Unavailable Unavailable Rosette Arteaga Unavailable Anette, ENT Unavailable Violetta Craig Unavailable Estefany Merino Unavailable Unavailable Nadeem, Wanda L Unavailable Unavailable Perfecto, Zabrina Unavailable Unavailable Manchak, Aleah Unavailable Unavailable Unavailable Unavailable Rosette Arteaga Unavailable [place], ENT Unavailable Violetta Craig Unavailable Estefany Merino Unavailable Unavailable Long, Wanda L Unavailable Unavailable Perfecto, Zabrina Unavailable Unavailable Manchak, Aleah Unavailable Unavailable Unavailable Unavailable Zena Callahan Unavailable Unavailable Yessenia Muñoz Unavailable Rosette Arteaga Attending Unavailable Jeremy Muñoza Jaren Referring Unavailable Rosette Arteaga Consulting Unavailable [place], Ny Unavailable Unavailable Rosette Arteaga DO Primary Care Provider Blade WALLACE, Aubrie Lindsey Primary Care Provider Allergies Allergy Classification Reported Allergen(s) Allergy Type Date of Onset Reaction(s) Facility (5 sources) acetaminophen / HYDROcodone; Translations: [HYDROCODONE-KAMLA TAMINOPHEN] Drug Allergy 12-03-19 12 Intolerance [facility] Repository (5 sources) acetaminophen / oxyCODONE; Translations: [OXYCODONE-ACETA MINOPHEN] Drug Allergy 09-27-19 12 Other: See Comments [facility] Repository (14 sources) Antihistamines; Translations: [ANTIHISTAMINES] Propensity to adverse reactions to drug (disorder) 07-11-19 07 [facility] Repository (5 sources) Sulfonamides (Antibiotic); Translations: [SULFA (SULFONAMIDE ANTIBIOTICS)] Propensity to adverse reactions to drug (disorder) 07-11-19 07 [facility] Repository (16 sources) acetaminophen / HYDROcodone; Translations: [Vicodin *ANALGESICS - OPIOID*] Drug Allergy [facility] Work Phone: Medications Current Medications Medication Drug Class(es) Dates Sig (Normalized) Sig (Original) mupirocin 0.02 mg/mg topical ointment (1 source) RNA Synthetase Inhibitor Antibacterial Start: 10-30-2021 End: 11-09-2021 mupirocin (BACTROBAN) 2 % ointment Apply 1 application to affected area three times daily for 10 days. 30 g 0 10/30/2021 11/09/2021 Active Completed/Discontinued Medications Medication Drug Class(es) Dates Sig (Normalized) Sig (Original) 200 actuat albuterol 0.09 mg/actuat metered dose inhaler (19 sources) beta2-Adrenergic Agonist Start: 08-05-2018 End: 08-22-2018 take 2 puff(s) by inhalation every four to six hours as needed ProAir HFA 108 (90 Base) MCG/ACT Inhalation Aerosol Solution 2 (two) Puff Q4-6 hours PRN for 0 days Quantity: 1 {Inhaler} Refills: 0 Ordered: 22-Aug-2018 Estefany Merino LPN Start : 05-Aug-2018 End : 22-Aug-2018 Inactive Problems Active Problems Problem Classification Problem Date Documented Da te Episodic/Chronic Administrative/social admission (14 sources) Pneumococcal vaccination given; Translations: [Pneumococcal vaccination given] 06-27-2016 Episodic Cancer of bone and connective tissue (15 sources) Malignant melanoma of trunk; 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 Cancer of prostate (20 sources) Adenocarcinoma of prostate; Translations: [Adenocarcinoma of prostate] 03-27-2018 Chronic Past or Other Problems Problem Classification Problem Date Documented Da te Episodic/Chronic Abdominal pain (20 sources) Generalized abdominal pain; Translations: [Acute abdominal pain] Resolved: 05-27-2009 05-02-2015 Episodic Results Test Name Value Interpretation Reference Range Facil ity Vital Signs Date Time Vital Sign Value Performing Clinician Facility 01-21-2022 10:47-0400 Body temperature 97.81 [degF] Carlene Athy PA-C Work Phone: [facility] 01-21-2022 10:47-0400 Body weight 90.72 kg Carlene Athy PA-C Work Phone: [facility] 01-21-2022 10:47-0400 Diastolic blood pressure 72 mm[Hg] Carlene Athy PA-C Work Phone: [facility] 01-21-2022 10:47-0400 Heart rate 70 /min Carlene Athy PA-C Work Phone: [facility] 01-21-2022 10:47-0400 Respiratory rate 16 /min Carlene Athy PA-C Work Phone: [facility] 01-21-2022 10:47-0400 SaO2% (BldA) [Mass fraction] 97 % Carlene Athy PA-C Work Phone: [facility] 01-21-2022 10:47-0400 Systolic blood pressure 134 mm[Hg] Carlene Athy PA-C Work Phone: [facility] 10-30-2021 14:07-0400 Body temperature 98.2 [degF] Gregoria Ambrocio SEMICONDUCTOR WAFER INSPECTOR.DRY TALC RACKER Work Phone: [facility] 10-30-2021 14:07-0400 Body weight 91.81 kg Gregoria Ambrocio SEMICONDUCTOR WAFER INSPECTOR.DRY TALC RACKER Work Phone: [facility] 10-30-2021 14:07-0400 Diastolic blood pressure 50 mm[Hg] Gregoria Ambrocio SEMICONDUCTOR WAFER INSPECTOR.DRY TALC RACKER Work Phone: [facility] 10-30-2021 14:07-0400 Heart rate 75 /min Gregoria Ambrocio SEMICONDUCTOR WAFER INSPECTOR.DRY TALC RACKER Work Phone: [facility] 10-30-2021 14:07-0400 Respiratory rate 21 /min Gregoria Albrecht SEMICONDUCTOR WAFER INSPECTOR.DRY TALC RACKER Work Phone: [facility] 10-30-2021 14:07-0400 SaO2% (BldA) [Mass fraction] 98 % Gregoria Ambrocio SEMICONDUCTOR WAFER INSPECTOR.DRY TALC RACKER Work Phone: [facility] 10-30-2021 14:07-0400 Systolic blood pressure 142 mm[Hg] Gregoria Ambrocio SEMICONDUCTOR WAFER INSPECTOR.DRY TALC RACKER Work Phone: [facility] 09-19-2018 09:57-0400 BMI (Body Mass Index) 29.06 kg/m2 [facility]: 09-19-2018 09:57-0400 Body weight 91.85 kg Rosette [facility] Work Phone: 09-19-2018 09:57-0400 BP Diastolic 80 mm[Hg] [facility] Work Phone: Encounters Encounter Date Encounter Type Care Provider Facility Start: 01-22-2022 Telephone encounter Carlene clark PA-C Work Phone: [facility] Procedures Date Procedure Procedure Detail Performing Clinician Start: 03-30-2019 End: 03-30-2019 Inital Evaluation (1) - PT Comments: See Note; NOTES: [facility] [place] [address] / REHABILITATION SERVICES INITIAL EVALUATION MR#: [id number] Acct: [id number] Name: ELIZABETH MURCIA Rep #: [id number] : 1935 83 From: Jesus Esteban PT, Cert. MDT, OCS Referring Dr.: LYDIA Stockton Status: REG RCR [facility] Patient's Visit Information ELIZABETH César TWIN is a 83 year old M referred to Physical Therapy by Brooklynn Kath, SERVICE LINE BUS CLEANER-C with a diagnosis of BALANCE PROBLEMS. Date of Evaluation: 03/26/19 Physical Therapist: Jesus Esteban, PT, Cert MDT, OCS - Visit Plan Frequency: 2x /Week Duration: 4 Weeks Plan: H/O LUMBAR FUSION 2018. PT INTERVENTION BALANCE PROGRAM ,BLE STRENGTHENING /FLEXABILITY ,POSTUTRAL EX'S - Subjective Findings: This 83 y/o male presents to physical therapy with balance problems. Patient most recently underwent s/p lumbar laminectomy and fusion with srews/rods on September [address] Valencia. Patient had no PT because had no pain.Patient has no pain after surgery . Patient major issue is balance deficits with walking due to weak back and weakness in legs . Patient weakness /tired/fatigue in back and legs. Most recent fell foward 2 weeks ago leaning foward. Denies parathesia/tingling,occass ional left foot..Bowel/bladder -. Patient sleeping okay at night. Prior to surgery had pain management with epidural.Symptoms become worse with extended walking /standing affects housework tasks /ADLS'. Patient condition affects QOL.COMORBITIES: BILATERAL TKR,Left THR. SOCIAL: . VOCATION: RETIRED Teacher - Objective POSTURE: mod foward posture. GAIT: reciprocal gait foward posture. NEURO: intact ,denies reflexes L3-4,L4-5,L5-S1 2/3. PALAPTION: unremarkable. FLEXABLITY: hamstrings mod tight,hip flexor stretch mod. SYMMTICAL: symmtical. MMT: quads/hams 4/5,hip flexion 4-/5,hip abd 4-/5,ankle 4/5. LUMBAR ROM : flexion mod ,extension severe,side glides mod - Special Tests L/S Slump test left side: Negative L/S Slump test right side: Negative L/S Left Straight Leg Raise: Negative L/S Right Straight Leg Raise: Negative - Balance Scores Functional Gait Assessment Score: 21 % Disability: 30.0000 CATSIB Score (Max score 120 seconds): 75 - Goals Goal 1:: Patient to be I with HEP. Goal Time Frame: 4-6 Weeks Goal 2:: Patient to improve posture for ADLS' and function 75 % of the time. Goal Time Frame: 4-6 Weeks Goal 3:: Patient to increase strength BLE by 1/2 graded to improve function. Goal Time Frame: 4-6 Weeks Goal 4:: Patient to improve functional gait assessment by 5 points to improve balance/gait. Goal Time Frame: 4-6 Weeks Goal 5:: Patient to improve LFES score by 5-10 points to uimprove QOL/FUNCTION. Goal Time Frame: 4-6 Weeks - Rehabilitation Potential Physical Therapy Diagnosis: Patient underwent s/p lumbar fusion September 2018 ,patient has no pain . Patient c/o weakness in legs and back extended symptoms with faitigue/tired cuases foward posture along with balance deficits. Patient also has tight hip flexors and hams affects posture and gait. Rehabilitation Potential: Good - Anticipated Interventions Patient/Client Instruction: Educate patient on: Condition, Plan of Care For the Purpose of:: To decrease pain, To increase ROM, To improve ability to perform ADL's, To improve performance and independence with ADL's, To improve ability of physical actions for home/community/work/leisur e, To improve gait and locomotor functions, To reduce risk of recurrence, To improve ability to perform tasks related to life management Therapeutic Exercise to Include: Strength training, Endurance training, Balance training, Dynamic Lumbar Stabilization Comment: BLE For the Purpose of:: To improve muscle performance and motor function, To improve ability to perform ADL's, To increase tolerance to activity/condition/positio n, To improve performance and independence with ADL's, To improve ability of physical actions for home/community/work/leisur e, To improve gait and locomotor functions, To improve endurance, To improve balance, To improve ability to perform tasks related to life management Thank you for the opportunity to evaluate your patient. For Medicare and Medicare HMO plans, please review the plan of care and approve it. It will need to be FAXED BACK to us at [phone] for Medicare purposes. For Medicare only, by signing this I certify the plan of care. Please let me know if there are questions or concerns regarding this plan of care. Physician Signature: Date: <Electronically signed by Jesus Esteban PT, Cert. T, OCS> 10/1924 CC: LYDIA Stockton; Rosette Arteaga DO JLA Signed Rosette Arteaga Start: 03-11-2019 End: 03-16-2019 Emergency Department Summary Comments: See Note; NOTES: [facility] Medical Records Department [address] [place] [address] Emergency Department Summary 03/11/19 1036 MR#: [id number] Acct: [id number] Name: ELIZABETH MURCIA Rep #: [id number] : 1935 83 From: Justina Camara MD PCP: Rosette Arteaga DO Status: DEP ER History of Present Illness Chief Complaint: Head Injury Informant: Patient Onset: Days Current Severity: Mild Maximum Severity: Mild Narrative: Patient had a mechanical fall 3 days ago. He had surgery on his lumbar spine in September. As part of his rehab he has been going for walks. He states that while on a walk Saturday, he had an episode where his legs started to go too fast and he could not catch his balance. He fell into the grass. He struck the right side of his face and his right shoulder. He denies headache or loss of consciousness. He does have some neck pain. He called his orthopedic surgeon this morning who recommended he come in for some x-rays of his head and he has a follow-up appointment scheduled with them for another procedure in 2 weeks. Past Medical History - Allergies and Home Meds Allergies/Adverse Reactions: Allergies acetaminophen [From Percocet] Adverse Reaction (Verified 03/11/19 10:12) Other I DONT LIKE THE FEELING hydrocodone bitartrate [From Vicodin] Adverse Reaction (Verified 03/11/19 10:12) Other I DONT LIKE THE FEELING oxycodone HCl [From Percocet] Adverse Reaction (Verified 03/11/19 10:12) Other I DONT LIKE THE FEELING Sulfa (Sulfonamide Antibiotics) Adverse Reaction (Verified 03/11/19 10:12) Other FLUSHING AND TACHYCARDIA Primary Care Physician: Rosette Arteaga DO [Primary Care Provider] - Prior records reviewed: Yes Past Medical History: - - Reviewed Lives: Spouse/ Significant Other Smoking Status: Former smoker Review of Systems General: Denies: Chills, Fever Eyes: Denies: Visual changes - bilaterally ENT: Denies: Bilateral ear pain Cardiovascular: Denies: Chest pain, Palpitations, Heart racing Respiratory: Denies: Dyspnea, Cough Gastrointestinal: Denies: Abdominal pain, Nausea, Vomiting Genitourinary: Denies: Dysuria Musculoskeletal: Reports: Neck pain. Denies: Extremity Pain Skin: Reports: Abrasions Neurological: Denies: Headache Physical Exam Vital Signs/Narrative: Vital Signs 03/11/19 10:13 98.3 F 81 16 167/79 H 98 Inital Vital Signs reviewed: Yes General: Well nourished, Well developed Head: Normocephalic, - - Abrasions to his right forehead and right maxilla. ENT: Moist mucous membranes Neck: Supple, - - Mild C-spine tenderness. Cardiovascular: Regular rate, Regular rhythm Respiratory: No distress, CTA bilaterally Abdomen: Soft, Nontender Back: Normal Inspection Extremities: Nontender Skin: - - Facial abrasions as above Neurological: Alert, Oriented x3, Normal Strength, Normal Sensation Psychological: Normal affect Diagnostic/Tx/Re-eval Impressions Brain CT 03/11/19 10:36 IMPRESSION: Chronic involutional changes of the brain. Electronically Signed: Dayne Anabel, at 11:30 EDT , Service support , Cervical Spine CT 03/11/19 10:36 IMPRESSION: Multilevel degenerative changes, as described above. Multilevel neural foraminal stenosis. Electronically Signed: Dayne Little, at 11:32 EDT , Service support , 03/11/19 10:36 CT Cervical [Spine Cervical without Contras] [CT] Stat CT Head [Brain/Head without Contrast] [CT] Stat - Medical Decision Making Test results discussed with the patient. He will follow-up with his orthopedic surgeon next week as scheduled. Please fax records to Dr Valencia, [facility] ED Disposition - Plan for ED Patient: Disposition: Home or Assisted Living Diagnosis: Facial contusion Instructions: FACIAL CONTUSION, No Wakeup Referrals: Rosette Arteaga DO [Primary Care Provider] - Additional Instructions: Follow-up with Dr Valencia as scheduled. What to do if you have Problems For any increased pain, shortness of breath, bleeding, nausea or vomiting, chest pain, or any unexpected problems, contact your Primary Care Provider. Call [facility] ([phone]) or report to the closest Emergency Room. Call 911 if necessary. 03/11/19 0704 <Electronically signed by Justina Camara MD> Date Justina Camara MD Cosigner Signature (If Indicated): Date CC: Rosette Simon Start: 03-11-2019 End: 03-16-2019 Brain/Head without Contrast Comments: See Note; NOTES: [facility] Imaging Services [address] [place] [address] Brain/Head without Contrast MR#: [id number] Acct: [id number] Name: MARCIOELIZABETH LR César Rep #: [id number] : 1935 M 83 From: Dayne Little MD PCP: Rosette Arteaga DO Status: [facility] ER Study: Brain/Head without Contrast Date of Exam: 03/11/19 Exam# [id number] Ordering Dr: Justina Camara MD STUDY: CT BRAIN WITHOUT CONTRAST REASON FOR EXAM: Male, 83 years old. History of recent fall. RADIATION DOSAGE (If Supplied By Facility): CTDIvol = ( 60.81 ) mGy, DLP = ( 1089.89 ) mGycm TECHNIQUE: Transaxial CT imaging of the brain was performed without administration of intravenous contrast material. Individualized dose optimization techniques were used for this CT. COMPARISON: No relevant priors. FINDINGS: Normal soft tissue structures. Normal calvarium. There is mild cerebral atrophy with widening of the extra-axial spaces and ventricular dilatation. There are areas of decreased attenuation within the white matter tracts of the supratentorial brain, consistent with microvascular disease changes. Normal basal ganglia and thalami. Normal brainstem. There is mild cerebellar atrophy. There is no intracranial hemorrhage. There are no findings of an acute ischemic infarction. Atherosclerotic calcification of the vertebral arteries and cavernous portions of the internal carotid arteries bilaterally. Normal visualized paranasal sinuses. CT/Brain/Head without Contrast IMPRESSION: Chronic involutional changes of the brain. Electronically Signed: Danye Little, at 11:30 EDT , Service support , CC: Justina Camara MD; Rosette Arteaga DO Cash Applications Analyst: Signed Rosette Arteaga Start: 03-11-2019 End: 03-16-2019 Spine Cervical without Contras Comments: See Note; NOTES: [facility] Imaging Services [address] [place] [address] Spine Cervical without Contras MR#: [id number] Acct: [id number] Name: ELIZABETH MURCIA Rep #: [id number] : 1935 83 From: Dayne Little MD PCP: Rosette Arteaga DO Status: [facility] ER Study: Spine Cervical without Contras Date of Exam: 03/11/19 Exam# [id number] Ordering Dr: Justina Camara MD STUDY: CT CERVICAL SPINE WITHOUT CONTRAST REASON FOR EXAM: Male, 83 years old. Recent fall. RADIATION DOSAGE (If Supplied By Facility): CTDIvol = ( 31.25 ) mGy, DLP = ( 659.83 ) mGycm TECHNIQUE: High resolution transaxial imaging was performed without contrast material. Sagittal and coronal images were reconstructed. Individualized dose optimization techniques were used for this CT. COMPARISON: None FINDINGS: Normal craniovertebral junction. Normal anterior atlantoaxial articulation. Normal odontoid process. Normal cervical lordosis. Normal vertebral bodies and posterior osseous elements. C2-3: Mild degree of disc space narrowing. Facet joint osteoarthritis and hypertrophy. Uncovertebral arthrosis. Mild degree of left neural foraminal stenosis. C3-4: Moderate degree of disc space narrowing. Uncovertebral arthrosis and facet joint osteoarthritis. Moderate degree of bilateral neural foraminal stenosis. C4-5: Moderate degree of disc space narrowing. Uncovertebral arthrosis as well as posterior spondylosis worse on the left side. Moderate to severe degree of bilateral neural foraminal stenosis. C5-6: Marked degree of disc space narrowing. Spondylosis. Uncovertebral arthrosis. Marked degree of bilateral neural foraminal stenosis. C6-7: Marked degree of disc space narrowing. Spondylosis. Facet joint osteoarthritis. Marked degree of bilateral neural foraminal stenosis. Atherosclerotic calcification of the carotid bifurcations. CT/Spine Cervical without Contras IMPRESSION: Multilevel degenerative changes, as described above. Multilevel neural foraminal stenosis. Electronically Signed: Dayne Little, at 11:32 EDT , Service support , CC: Justina Camara MD; Rosette Arteaga DO Cash Applications Analyst: Signed Rosette Arteaga Start: 09-19-2018 End: 09-19-2018 Venous Duplex Lower Extremity Comments: See Note; NOTES: [facility] Cardiovascular Services [address] [place] [address] Venous Duplex US - Pepe Extrem 09/19/18 1107 MR#: [id number] Acct: [id number] Name: SNOW MURCIA Rep #: [id number] : 1935 83 From: Alan Aleman MD Attending Dr: Rosette Arteaga DO Status: REG CLI Ordering Dr: Rosette Arteaga DO Date: 09/19/18 Location: [facility] Sex: M C Admitted: Reason For Study: pain RIGHT LEFT GSV is normal. GSV is normal. CFV is compressible, spontaneous, phasic, CFV is compressible, spontaneous, phasic, competent and demonstrates normal competent, and demonstrates normal augmentation. augmentation. FV is compressible, spontaneous, phasic, FV is compressible, spontaneous, phasic, competent and demonstrates normal competent and demonstrates normal augmentation. augmentation. POP V is compressible, spontaneous, phasic, POP V is compressible, spontaneous, phasic, competent and demonstrates normal competent and demonstrates normal augmentation. augmentation. T/P Trunk is compressible. T/P Trunk is compressible. PTV is compressible. PTV is compressible. RT PerV is compressible. LT PerV is compressible. Procedure Exam performed in department. The exam was diagnostic. A preliminary report was called and/or faxed to Dr. Arteaga @ [phone] @ 11:30 am. Interpretation Summary No evidence for acute deep venous thrombosis bilateral lower extremities with patent and compressible bilateral great saphenous veins. Ordering Physician: Rosette Arteaga Referring Physician: Rosette Arteaga Performed By: Divya Campos, RDCS, RVT 09/19/18 1724 Date Alan Aleman MD CC: Rosette Arteaga DO Date Dictated: 09/19/18 1107 Date Transcribed: 09/19/181723 Cash Applications Analyst: Signed Rosette Arteaga Work Phone: Start: 08-14-2018 End: 08-14-2018 Chest PA and Lateral Comments: See Note; NOTES: [facility] Imaging Services [address] [address] Chest PA and Lateral MR#: [id number] Acct: [id number] Name: SNOW MURCIA Rep #: [id number] : 1935 M 83 From: Jose Manuel Singer MD PCP: Rosette Arteaga DO Status: REG CLI Study: Chest PA and Lateral Date of Exam: 08/14/18 Exam# [id number] Ordering Dr: Rosette Arteaga DO STUDY: X-RAY CHEST REASON FOR EXAM: Male, 83 years old. COUGH, COLD SXs X 2 WEEKS TECHNIQUE: Frontal and lateral views of the chest. COMPARISON: 02/09/2013. FINDINGS: The lungs are clear and expanded. There is no demonstrated pleural abnormality. Normal size heart. Normal mediastinum and norma. Normal visualized pulmonary arteries. Normal visualized aortic arch and descending thoracic aorta. Normal visualized thoracic spine. Normal visualized ribs, clavicles, and shoulders. There is no demonstrated abnormality of the visualized soft tissue structures of the upper abdomen. RAD/Chest PA and Lateral IMPRESSION: Normal x-ray examination of the chest. Electronically Signed: Jose Manuel Singer MD at 19:31 EST , Service support , CC: Rosette Arteaga DO Cash Applications Analyst: Signed Rosette Arteaga Work Phone: Start: 07-22-2018 End: 07-22-2018 Inital Evaluation (1) - PT Comments: See Note; NOTES: [facility] [address] [place] [address]. [address] [place] [address] / REHABILITATION SERVICES INITIAL EVALUATION MR#: [id number] Acct: [id number] Name: SNOW MURCIA Rep #: [id number] : 1935 82 From: Jesus Esteban PT, Cert. MDT, OCS Referring DrAlex: Sheyla Bravo Status: REG R Insurance: [facility] SELF PAY INSURANCE Patient's Visit Information SNOW MURCIA is a 82 year old M referred to Physical Therapy by LYDIA Rowe with a diagnosis of DEGENERATIVE OF L-S INTERVERTEBRAL DISC,LUMBAR RADICULOPATHY,SPONDYLOTHES IS. Date of Evaluation: 07/21/18 Physical Therapist: Jesus Esteban PT, Cert MDT, OCS - Visit Plan Frequency: 2x /Week Duration: 4 Weeks Plan: DLS,LUMBAR FLEXION,GRADED STRENGTHENING,POSTURAL EX'S ,MODALITIES NEEDED - Subjective Findings: This 82 y/o male presents to physical therapy with with low back pain with radicular symptoms.. Patient has had lumbar pain several years progressively worse past 2 years . Patient seen pain management to include 6 epidural injections,and burn injections. Patient symmtrical lumbar to lateral hip. Symptoms worse with walking standing affects ADL'S . Patient unable to walk for 10mins. Patient symptoms better siting. Coughing/sneezing-. Bowel/bladder good. C/O parathesia left hip -foot. Patient sleeping. Patient had MRI 3 years ago stenosis and disc involvement. Patient trying avoid surgery. Pateint pain affects QOL and function. Pateint has had PT. SOCIAL: . VOCATION: - Pain Bilateral Back Pain Intensity (Out of 10): 7 Pain Intensity Range: 10 Left Hip Pain Intensity (Out of 10): 7 Pain Intensity Range: 10 - Objective POSTURE: mild foward posture. GAIT: mild foward posture hips/knees flexed anatalgic gait. NEURO: c/o parathesia /tingling hip ,reflexes L3-4,L4-5,L5-S1 1/3. PALAPTION: unremarkable. SYMMTRIES: align. LUMBAR ROM: flexion min loss,extension mod/severe loss pain,side glides mod loss pain. FLEXABLITY: hams min tight. MMT: quads/hams 4/5 ,hip flexion 4-/5,hip abd 4-/5 ankle 4/5 - Special Tests L/S Slump test left side: Negative L/S Slump test right side: Negative L/S Left Straight Leg Raise: Negative L/S Right Straight Leg Raise: Negative - Goals Goal 1:: Independant with HEP Goal Time Frame: 4-6 Weeks Goal 2:: Patient to improve posture for ADL'S Goal Time Frame: 4-6 Weeks Goal 3:: Patient decrease lumbar pain and hip pain by 50% or greater to improve function with walking and standing Goal Time Frame: 4-6 Weeks Goal 4:: Patient to increase abilitity to perform walking and standing greater than 15 mis to improve functiobn Goal Time Frame: 4-6 Weeks Goal 5:: Patient to improve JASPER back score by 5 points or greater to improve function. - Rehabilitation Potential Physical Therapy Diagnosis: This patient has chronic lumbar pain with symptoms radiating to hip worse with walking ,standing affects ADL'S ,flexion better thus benifit from skilled PT Rehabilitation Potential: Good - Anticipated Interventions Patient/Client Instruction: Educate patient on: Condition, Plan of Care For the Purpose of:: To decrease pain, To increase ROM, To increase oxygenation perfusion, To improve muscle performance and motor function, To improve ability to perform ADL's, To increase tolerance to activity/condition/positio n, To improve performance and independence with ADL's, To improve ability of physical actions for home/community/work/leisur e, To decrease soft tissue restriction, To increase flexibility/ROM, To improve endurance, To improve ability to perform tasks related to life management Therapeutic Exercise to Include: Strength training, Body mechanics, Postural training, Flexibilty training, Dynamic Lumbar Stabilization For the Purpose of:: To decrease pain, To increase ROM, To improve muscle performance and motor function, To increase tolerance to activity/condition/positio n, To improve ability of physical actions for home/community/work/leisur e, To improve health of tissue, To decrease soft tissue restriction, To increase flexibility/ROM, To improve ability to perform tasks related to life management TENS: Yes IF ES: Yes Cryotherapy (ice pack, ice massage): Yes Thermo therapy (hot pack): Yes Ultrasound (thermal/non thermal): Yes For the Purpose of:: To decrease pain, To improve nutrient delivery to tissue, To increase oxygenation perfusion, To improve health of tissue, To decrease soft tissue restriction Thank you for the opportunity to evaluate your patient. For Medicare and Medicare HMO plans, please review the plan of care and approve it. It will need to be FAXED BACK to us at [phone] for Medicare purposes. For Medicare only, by signing this I certify the plan of care. Please let me know if there are questions or concerns regarding this plan of care. Physician Signature: Date: <Electronically signed by Jesus Esteban PT, Cert. T, OCS> 07/22/18 1614 CC: Rosette Arteaga DO; Sheyla FREEMAN Prebish ARIANE Signed Rosette Arteaga Start: 07-05-2015 End: 07-05-2015 Emergency Department Summary Comments: See Note; NOTES: [facility] Medical Records Department [address] [place] [address] Emergency Department Summary MR#: [id number] Acct: [id number] Name: SNOW MURCIA Rep #: [id number] : 1935 79 From: Jorge Luis Evans MD PCP: Yessenia Muñoz MD Status: [facility] ER DATE OF SERVICE: 07/05/2015 CHIEF COMPLAINT: Vomiting and diarrhea. HISTORY OF PRESENT ILLNESS: An 79-year-old male presents with vomiting, diarrhea. It has been going on since this morning, approximately 7 or 8 hours, it is nonbilious, nonbloody emesis, diarrhea about 3 times. It is watery, nonbloody, no melena. He has vomited about 7 times. Denies any abdominal pain with this. No recent antibiotics or camping or foreign travel, although he recently came home from [place] about 1 week ago, he was eating cooked seafood there, but no raw seafood. He has had no known sick contacts. Takes medicine for hypertension and metoprolol for symptomatic PVCs. States that he did not keep his blood pressure down last night, but he did take it this morning and has kept it down so far. PHYSICAL EXAMINATION: VITAL SIGNS: On exam, he is afebrile. His heart rate is 103, respirations 18, pulse ox 93 on room air, blood pressure 160/76. HEENT: His oral mucous membranes are moist. HEART: He has an occasional irregularity ____ most part his heart is regular. No cardiac murmurs. LUNGS: Clear. ABDOMEN: Soft, nontender, nondistended with normal bowel sounds present. SKIN: No rashes. EXTREMITIES: No pedal edema. NEUROLOGIC: He is keenly alert and in no distress. EMERGENCY DEPARTMENT COURSE: Labs show a mild nonspecific leukocytosis at 11.9 with 91 segs, no bands. BUN is 28, consistent with mild prerenal azotemia. His liver enzymes show a total bilirubin of 1.1 and are otherwise normal. He is treated with IV fluids and Zofran, which helped him very quickly. Was able to drink fluids and feel much better. No vomiting in the ER. My suspicion is that given the fact that this is very prevalent in the community at this time, he has viral gastroenteritis. At this time, supportive care is indicated along with encouraging fluids and p.r.n. Zofran ODT, which is prescribed. Advised to return if he gets worse or has any significant abdominal pains or follow up with his doctor if he does not get better within the next couple of days. IMPRESSION: Acute gastroenteritis. DISPOSITION: Home. CONDITION: Stable and improved. Jorge Luis Jones C: Yessenia Muñoz MD T: NTS JOB: [id number] 07/05/15 1727 <Electronically signed by Jorge Luis Evans MD> Date Jorge Luis Evans MD Cosigner Signature (If Indicated): Date CC: Yessenia Muñoz MD Date Dictated: 07/05/15 1002 Date Transcribed: 07/05/15 1002 Cash Applications Analyst: Signed Rosette Arteaga Start: 07-05-2015 End: 07-05-2015 Discharge Instruction Comments: See Note; NOTES: [facility] Medical Records Department [address] [address] Discharge Instruction 07/05/15 0932 MR#: [id number] Acct: [id number] Name: SNOW MURCIA Rep #: [id number] : 1935 79 From: Jorge Luis Evans MD PCP: Yessenia Muñoz MD Status: REG ER ED Disposition - Plan for ED Patient: Disposition: Home or Assisted Living Chief Complaint: Nausea/Vomiting/Diarrhea Instructions: ED VIRAL GASTROENT (6 yr - Adult) Prescriptions: Ondansetron [Zofran Odt] 8 mg PO Q8H PRN PRN #[id number] PRN Reason: Nausea Referrals: Yessenia Muñoz MD [Primary Care Provider] - 3-5 Days if not improving What to do if you have Problems For any increased pain, shortness of breath, bleeding, nausea or vomiting, chest pain, or any unexpected problems, contact your doctor. Call [facility] ([phone]) or report to the closest Emergency Room. Call 911 if necessary. 07/05/15 09 <Electronically signed by Jorge Luis Evans MD> Date Jorge Luis Evans MD Cosigner Signature (If Indicated): Date CC: Yessenia Arteaga TKA 1-12 left Estefany odom Plan of Treatment Date Care Activity Detail Author Start: 02-15-2022 Influenza vaccination C [facility] Start: 01-21-2022 End: 02-04-2022 SARS-CoV-2 (COVID-19) RNA [Presence] in Respiratory specimen by SHRUTHI with probe detection [facility] Work Phone: Immunizations Immunization Date Immunization Notes Care Provider Altagracia nazario 03-17-2011 influenza virus vacc ine, unspecified formulation Gregoria Albrecht SEMICONDUCTOR WAFER INSPECTOR.DRY TALC RACKER Work Phone: [facility] 03-17-2008 pneumococcal polysaccharide vaccine, 23 valent Gregoria Albrecht SEMICONDUCTOR WAFER INSPECTOR.DRY TALC RACKER Work Phone: [facility] 06-29-2005 pneumococcal polysaccharide vaccine, 23 valent Gregoria Albrecht SEMICONDUCTOR WAFER INSPECTOR.DRY TALC RACKER Work Phone: [facility] Work Phone: Payers Date Payer Category Payer Medicare AETNA MEDICARE A ETNA MEDICARE PPO [id number] 2021-Present [phone] [address] [place] [address] PPO [id number] 2018 Medicare [id number] 2009 Medicare AETNA MEDICARE A ETNA MEDICARE PPO [id number] 2009-Present [phone] [address] [place] [address] PPO [id number] 1935 Unknown [id number] Medicare [id number] Unknown [employer] Life Ins/Medicare Unknown [id number] Social History Date Type Detail Facility Alcohol Use Former smoker [facility] Work Phone: Clinical Notes 03-21-2016 to 01-22-2022 Telephone Encounter - Carlene Rodarte PA-C - 01/22/2022 9:44 AM VARUN Champagne - 01/21/2022 1:11 PM Camden Albrecht APRN.SHABNAM - 10/30/2021 2:24 PM EDTPatient Instructions Note Date & Type Note Facility 01-22-2022 Miscellaneous Notes I called and discussed positive COVID-19. Patient states he feels better today. He is not having any severe symptoms. Recommended he call his primary doctor to discuss antiviral/monoclonal antibodies. He has not had COVID previously but is vaccinated. Discussed quarantine. His also has similar symptoms. Discussed red flag symptoms. He is agreeable with plan. documented in this encounter [facility] 01-21-2022 Note HNO ID: [id number] Author: Carlene Rodarte PA-C Service: ? Author Type: Physician Research Soil Scientist Type: Progress Notes Filed: 01/21/2022 1:13 PM Note Text: This note was created using [employer]. Subjective Snow Murcia is a 86 year old male. HPI Patient presents with cough, postnasal drip and body aches over the past 3 days. He states the cough really has been mild here and there. It started with congestion and postnasal drip which has improved with Benadryl. He denies a fever. No chest pain or shortness of breath. No known sick contacts. Review of Systems Constitutional: Negative for chills and fever. HENT: Positive for congestion, postnasal drip and rhinorrhea. Negative for ear pain and sore throat. Respiratory: Positive for cough. Negative for chest tightness, shortness of breath and wheezing. Cardiovascular: Negative. Gastrointestinal: Negative. Genitourinary: Negative. Musculoskeletal: Positive for myalgias. Skin: Negative for rash. All other systems reviewed and are negative. PAST MEDICAL HISTORY Diagnosis Date Actinic keratosis Benign neoplasm of colon Benign neoplasm of colon Diverticulosis of colon (without mention of hemorrhage) Hematuria Hemorrhage of gastrointestinal tract, unspecified HTN (hypertension) Internal hemorrhoids without mention of complication Obstructive sleep apnea (adult) (pediatric) REY on CPAP Osteoarthrosis, unspecified whether generalized or localized, lower leg Personal history of colonic polyps Premature beats, unspecified Pure hypercholesterolemia Snoring Unspecified essential hypertension Current Outpatient Medications Medication Sig Dispense Refill metoprolol tartrate, short acting, (LOPRESSOR) 25 mg tablet TAKE 1 TABLET TWICE A DAY 180 tablet 3 ZINC ORAL Take by mouth. clonazePAM (KLONOPIN) 0.5 mg tablet Take 0.5 mg by mouth daily at bedtime. 5 lisinopril (ZESTRIL, PRINIVIL) 20 mg tablet Take 1 tablet by mouth twice daily. 180 tablet 3 CALCIUM CARBONATE/VITAMIN D3 (VITAMIN D-3 ORAL) Take by mouth every other day. CINNAMON BARK (CINNAMON ORAL) Take by mouth. CALCIUM CARBONATE-VITAMIN D3 SR 600 MG (1,500 MG)-500 UNIT 24 HR TAB take three times per week 0 multivitamins(MULTIPLE VITAMIN TAB) Take 1 tablet daily 0 albuterol HFA (PROVENTIL HFA, VENTOLIN HFA) 90 mcg/actuation inhaler Inhale 2 Puffs as instructed every 4 hours as needed. (Patient not taking: Reported on 09/25/2018 ) 1 Inhaler 0 Dapltivmpet-Uuapvbptg-Nxl C-Mn (GLUCOSAMINE CHONDROITIN MAXSTR) 500-400 mg cap Take 1 capsule by mouth once daily. 0 ASPIRIN 81 MG TAB Take one(1) tablet daily. 0 No current facility-administered medications for this visit. PAST SURGICAL HISTORY Procedure Laterality Date COLONOSCOPY FLX DX W/COLLJ SPEC WHEN PFRMD 08/02/00 Colonoscopy COLONOSCOPY FLX DX W/COLLJ SPEC WHEN PFRMD 08/07/02 Colonoscopy COLONOSCOPY FLX DX W/COLLJ SPEC WHEN PFRMD 08/14/02 Colonoscopy and EGD COLONOSCOPY FLX DX W/COLLJ SPEC WHEN PFRMD 03/14/03 Colonoscopy and EGD COLONOSCOPY FLX DX W/COLLJ SPEC WHEN PFRMD 09/29/03 Colonoscopy and EGD COLONOSCOPY FLX DX W/COLLJ SPEC WHEN PFRMD 08/31/04 Colonoscopy COLONOSCOPY FLX DX W/COLLJ SPEC WHEN PFRMD 09/14/09 COLONOSCOPY FLX DX W/COLLJ SPEC WHEN PFRMD 12/06/14 Colonoscopy COLONOSCOPY W/BIOPSY SINGLE/MULTIPLE 09-03-06 PAST SURGICAL HISTORY OF right inguninal hernia PAST SURGICAL HISTORY OF s/p TURP PAST SURGICAL HISTORY OF 06/2011 left total knee PAST SURGICAL HISTORY OF 02/09/2013 left hip PAST SURGICAL HISTORY OF 01/21/2012 right total knee FAMILY HISTORY Problem Relation Age of Onset Prostate Cancer Father Heart Father enlarged heart, caused Thyroid Mother goiter removed Prostate Cancer Brother fine after radiation per pt other (diverticulitis [Other]) Unknown chronic,see dr with outbreak and takes prescribed atb Social History Tobacco Use Smoking status: Former Types: Pipe Quit date: 10/02/1990 Years since quittin.3 Smokeless tobacco: Never Substance Use Topics Alcohol use: Yes Comment: couple times a year Drug use: No Objective BP 134/72 Pulse 70 Temp 36.6 ?C (97.8 ?F) Resp 16 Wt 90.7 kg (200 lb) SpO2 97% BMI 27.89 kg/m? Physical Exam Vitals reviewed. Constitutional: Appearance: Normal appearance. HENT: Head: Normocephalic and atraumatic. Right Ear: Tympanic membrane, ear canal and external ear normal. Left Ear: Tympanic membrane, ear canal and external ear normal. Nose: Nose normal. Mouth/Throat: Mouth: Mucous membranes are moist. Pharynx: Oropharynx is clear. Cardiovascular: Rate and Rhythm: Normal rate and regular rhythm. Heart sounds: Normal heart sounds. Pulmonary: Effort: Pulmonary effort is normal. Breath sounds: Normal breath sounds. No wheezing, rhonchi or rales. Musculoskeletal: Cervical back: Neck supple. Skin: General: Skin is warm and dry. Neurological: General: No focal (more content not included)... [facility] 01-21-2022 History of Present illness Narrative This note was created using [employer]. Subjective Snow Murcia is a 86 year old male. HPI Patient presents with cough, postnasal drip and body aches over the past 3 days. He states the cough really has been mild here and there. It started with congestion and postnasal drip which has improved with Benadryl. He denies a fever. No chest pain or shortness of breath. No known sick contacts. Review of Systems Constitutional: Negative for chills and fever. HENT: Positive for congestion, postnasal drip and rhinorrhea. Negative for ear pain and sore throat. Respiratory: Positive for cough. Negative for chest tightness, shortness of breath and wheezing. Cardiovascular: Negative. Gastrointestinal: Negative. Genitourinary: Negative. Musculoskeletal: Positive for myalgias. Skin: Negative for rash. All other systems reviewed and are negative. PAST MEDICAL HISTORY Diagnosis Date Actinic keratosis Benign neoplasm of colon Benign neoplasm of colon Diverticulosis of colon (without mention of hemorrhage) Hematuria Hemorrhage of gastrointestinal tract, unspecified HTN (hypertension) Internal hemorrhoids without mention of complication Obstructive sleep apnea (adult) (pediatric) REY on CPAP Osteoarthrosis, unspecified whether generalized or localized, lower leg Personal history of colonic polyps Premature beats, unspecified Pure hypercholesterolemia Snoring Unspecified essential hypertension Current Outpatient Medications Medication Sig Dispense Refill metoprolol tartrate, short acting, (LOPRESSOR) 25 mg tablet TAKE 1 TABLET TWICE A DAY 180 tablet 3 ZINC ORAL Take by mouth. clonazePAM (KLONOPIN) 0.5 mg tablet Take 0.5 mg by mouth daily at bedtime. 5 lisinopril (ZESTRIL, PRINIVIL) 20 mg tablet Take 1 tablet by mouth twice daily. 180 tablet 3 CALCIUM CARBONATE/VITAMIN D3 (VITAMIN D-3 ORAL) Take by mouth every other day. CINNAMON BARK (CINNAMON ORAL) Take by mouth. CALCIUM CARBONATE-VITAMIN D3 SR 600 MG (1,500 MG)-500 UNIT 24 HR TAB take three times per week 0 multivitamins(MULTIPLE VITAMIN TAB) Take 1 tablet daily 0 albuterol HFA (PROVENTIL HFA, VENTOLIN HFA) 90 mcg/actuation inhaler Inhale 2 Puffs as instructed every 4 hours as needed. (Patient not taking: Reported on 09/25/2018 ) 1 Inhaler 0 Ujzgasvvlda-Atsfievjo-Ujg C-Mn (GLUCOSAMINE CHONDROITIN MAXSTR) 500-400 mg cap Take 1 capsule by mouth once daily. 0 ASPIRIN 81 MG TAB Take one(1) tablet daily. 0 No current facility-administered medications for this visit. PAST SURGICAL HISTORY Procedure Laterality Date COLONOSCOPY FLX DX W/COLLJ SPEC WHEN PFRMD 08/02/00 Colonoscopy COLONOSCOPY FLX DX W/COLLJ SPEC WHEN PFRMD 08/07/02 Colonoscopy COLONOSCOPY FLX DX W/COLLJ SPEC WHEN PFRMD 08/14/02 Colonoscopy and EGD COLONOSCOPY FLX DX W/COLLJ SPEC WHEN PFRMD 03/14/03 Colonoscopy and EGD COLONOSCOPY FLX DX W/COLLJ SPEC WHEN PFRMD 09/29/03 Colonoscopy and EGD COLONOSCOPY FLX DX W/COLLJ SPEC WHEN PFRMD 08/31/04 Colonoscopy COLONOSCOPY FLX DX W/COLLJ SPEC WHEN PFRMD 09/14/09 COLONOSCOPY FLX DX W/COLLJ SPEC WHEN PFRMD 12/06/14 Colonoscopy COLONOSCOPY W/BIOPSY SINGLE/MULTIPLE 09-03-06 PAST SURGICAL HISTORY OF right inguninal hernia PAST SURGICAL HISTORY OF s/p TURP PAST SURGICAL HISTORY OF 06/2011 left total knee PAST SURGICAL HISTORY OF 02/09/2013 left hip PAST SURGICAL HISTORY OF 01/21/2012 right total knee FAMILY HISTORY Problem Relation Age of Onset Prostate Cancer Father Heart Father enlarged heart, caused Thyroid Mother goiter removed Prostate Cancer Brother fine after radiation per pt other (diverticulitis [Other]) Unknown chronic,see dr with outbreak and takes prescribed atb Social History Tobacco Use Smoking status: Former Types: Pipe Quit date: 10/02/1990 Years since quittin.3 Smokeless tobacco: Never Substance Use Topics Alcohol use: Yes Comment: couple times a year Drug use: No Objective BP 134/72 Pulse 70 Temp 36.6 C (97.8 F) Resp 16 Wt 90.7 kg (200 lb) SpO2 97% BMI 27.89 kg/m Physical Exam Vitals reviewed. Constitutional: Appearance: Normal appearance. HENT: Head: Normocephalic and atraumatic. Right Ear: Tympanic membrane, ear canal and external ear normal. Left Ear: Tympanic membrane, ear canal and external ear normal. Nose: Nose normal. Mouth/Throat: Mouth: Mucous membranes are moist. Pharynx: Oropharynx is clear. Cardiovascular: Rate and Rhythm: Normal rate and regular rhythm. Heart sounds: Normal heart sounds. Pulmonary: Effort: Pulmonary effort is normal. Breath sounds: Normal breath sounds. No wheezing, rhonchi or rales. Musculoskeletal: Cervical back: Neck supple. Skin: General: Skin is warm and dry. Neurological: General: No focal deficit present. Mental Status: He is alert and oriented to person, place, and time. Assessment and Plan ASSESSMENT/PLAN: 1. Viral URI - ICD9: 465.9, ICD10: J06.9 - Discussed viral etiology and rationale for treatment. - Symptomatic treatment with prn analgesia - Supportive care with fluids and rest - Follow up in 3-5 days if symptoms persist or sooner if worsening of symptoms - 2019 CORONAVIRUS Carlene Rodarte PA-C documented in this encounter [facility] 10-30-2021 Note HNO ID: [id number] Author: Gregoria Albrecht APRN.DRY TALC RACKER Service: ? Author Type: Nurse Practitioner Type: Progress Notes Filed: 10/30/2021 2:40 PM Note Text: Subjective The history is provided by the patient. No english language learner teacher was used. HPI Snow Murcia is a 86 year old male who presents today for CC of abrasion on right posterior forearm. This occurred Saturday while planting re[place], he slipped of stool and caught self with arm tearing skin. He has used polysporin, peroxide. Concerned of possible infection, just wants it checked. BP 142/50 Pulse 75 Temp 36.8 ?C (98.2 ?F) Resp 21 Wt 91.8 kg (202 lb 6.4 oz) SpO2 98% BMI 28.23 kg/m? Social History Tobacco Use - Smoking status: Former Smoker Types: Pipe Quit date: 10/02/1990 Years since quittin.0 - Smokeless tobacco: Never Used Substance Use Topics - Alcohol use: Yes Comment: couple times a year - Drug use: No PAST MEDICAL HISTORY Diagnosis Date - Actinic keratosis - Benign neoplasm of colon - Benign neoplasm of colon - Diverticulosis of colon (without mention of hemorrhage) - Hematuria - Hemorrhage of gastrointestinal tract, unspecified - HTN (hypertension) - Internal hemorrhoids without mention of complication - Obstructive sleep apnea (adult) (pediatric) - REY on CPAP - Osteoarthrosis, unspecified whether generalized or localized, lower leg - Personal history of colonic polyps - Premature beats, unspecified - Pure hypercholesterolemia - Snoring - Unspecified essential hypertension I have confirmed and edited as necessary, the [facility] Review of Systems Constitutional: Negative for chills and fever. Musculoskeletal: Negative for joint pain and myalgias. Skin: Negative for itching and rash. Abrasion on right forearm. All other systems reviewed and are negative. Objective Physical Exam Vitals and nursing note reviewed. Pulmonary: Effort: Pulmonary effort is normal. Skin: General: Skin is warm and dry. Findings: Abrasion present. Neurological: Mental Status: He is alert and oriented to person, place, and time. Psychiatric: Mood and Affect: Affect normal. ASSESSMENT/PLAN: 1. Abrasion - ICD9: 919.0, ICD10: T14.8XXA Wound care discussed see patient instructions. Mupirocin Follow up with PCP as needed Diagnosis and treatment plan were discussed and questions were answered to the patient's satisfaction. Pt acknowledged understanding of concepts and follow up plan. Specific signs and symptoms that would indicate the need for higher level of care were discussed in detail warranting prompt ER evaluation. Gregoria Albrecht APRN.DRY TALC RACKER [facility] 10-30-2021 History of Present illness Narrative Images from the original note were not included. Subjective The history is provided by the patient. No english language learner teacher was used. HPI Snow Murcia is a 86 year old male who presents today for CC of abrasion on right posterior forearm. This occurred Saturday while planting reagan, he slipped of stool and caught self with arm tearing skin. He has used polysporin, peroxide. Concerned of possible infection, just wants it checked. BP 142/50 Pulse 75 Temp 36.8 C (98.2 F) Resp 21 Wt 91.8 kg (202 lb 6.4 oz) SpO2 98% BMI 28.23 kg/m Social History Tobacco Use Smoking status: Former Smoker Types: Pipe Quit date: 10/02/1990 Years since quittin.0 Smokeless tobacco: Never Used Substance Use Topics Alcohol use: Yes Comment: couple times a year Drug use: No PAST MEDICAL HISTORY Diagnosis Date Actinic keratosis Benign neoplasm of colon Benign neoplasm of colon Diverticulosis of colon (without mention of hemorrhage) Hematuria Hemorrhage of gastrointestinal tract, unspecified HTN (hypertension) Internal hemorrhoids without mention of complication Obstructive sleep apnea (adult) (pediatric) REY on CPAP Osteoarthrosis, unspecified whether generalized or localized, lower leg Personal history of colonic polyps Premature beats, unspecified Pure hypercholesterolemia Snoring Unspecified essential hypertension I have confirmed and edited as necessary, the [facility] Review of Systems Constitutional: Negative for chills and fever. Musculoskeletal: Negative for joint pain and myalgias. Skin: Negative for itching and rash. Abrasion on right forearm. All other systems reviewed and are negative. Objective Physical Exam Vitals and nursing note reviewed. Pulmonary: Effort: Pulmonary effort is normal. Skin: General: Skin is warm and dry. Findings: Abrasion present. Neurological: Mental Status: He is alert and oriented to person, place, and time. Psychiatric: Mood and Affect: Affect normal. ASSESSMENT/PLAN: 1. Abrasion - ICD9: 919.0, ICD10: T14.8XXA Wound care discussed see patient instructions. Mupirocin Follow up with PCP as needed Diagnosis and treatment plan were discussed and questions were answered to the patient's satisfaction. Pt acknowledged understanding of concepts and follow up plan. Specific signs and symptoms that would indicate the need for higher level of care were discussed in detail warranting prompt ER evaluation. Gregoria Albrecht APRN.CNP documented in this encounter [facility] 10-30-2021 Instructions Gregoria Albrecht APRN.CNP - 10/30/2021 2:24 PM EDT Wound Care - Keep the area clean and dry -Clean with soap and water . Apply mupirocin ointment 2 times a day. - keep covered until scabbed and dried -Tylenol or Ibuprofen for discomfort -Observe area for signs of infection: redness, warmth, foul odor, drainage or increase in discomfort. -Call your primary care physician's office for a follow up appointment as needed documented in this encounter [facility] documented as of this encounter (statuses as of 10/30/2021) [facility]10-[facility]-2016 History of Past illness Narrative* Problem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 Start:27-Jun-2016 Instruction Type:Patient Education How to access health informa tion online - Detail Indication:BMI 28.0-28.9,adult Start:27-Jun-2016 Instruction Type:Patient Education Patient Instructions Indication:BMI 28.0-28.9,adult Start:27-Jun-2016 Instruction Type:Provider Instructions for Treatment How to access health informa tion online Indication:Nonsmoker Start:31-May-2016 Instruction Type:Patient Education How to access health informa tion online - Detail Indication:Nonsmoker Start:31-May-2016 Instruction Type:Patient Education Patient Instructions Indication:Nonsmoker Start:31-May-2016 Instruction Type:Provider Instructions for Treatment How to access health informa tion online Indication:URI (upper respiratory infection) Start:11-Apr-2016 Instruction Type:Patient Education How to access health informa tion online - Detail Indication:URI (upper respiratory infection) Start:11-Apr-2016 Instruction Type:Patient Education Patient Instructions Indication:URI (upper respiratory infection) Start:11-Apr-2016 Instruction Type:Provider Instructions for Treatment How to access health informa tion online Indication:Gastritis Start:12-Jul-2015 Instruction Type:Patient Education How to access health informa tion online - Detail Indication:Gastritis Start:12-Jul-2015 Instruction Type:Patient Education Patient Instructions Indication:Gastritis Start:12-Jul-2015 Instruction Type:Provider Instructions for Treatment Patient Instructions Indication:Viral infection, unspecified Start:15-Apr-2014 Instruction Type:Provider Instructions for Treatment Patient Instructions Indication:Hip pain, left Start:28-Jan-2013 Instruction Type:Provider Instructions for Treatment Patient Instructions Indication:Anemia Start:22-Feb-2012 Instruction Type:Provider Instructions for Treatment Name Dates Details How to access health informa tion online Indication:Nonsmoker Start:19-Sep-2018 Instruction Type:Patient Education How to access health informa tion online - Detail Indication:Nonsmoker Start:19-Sep-2018 Instruction Type:Patient Education Patient Instructions Indication:Nonsmoker Start:19-Sep-2018 Instruction Type:Provider Instructions for Treatment How to access health informa tion online Indication:Nonsmoker Start:05-Sep-2018 Instruction Type:Patient Education How to access health informa tion online - Detail Indication:Nonsmoker Start:05-Sep-2018 Instruction Type:Patient Education Patient Instructions Indication:Nonsmoker Start:05-Sep-2018 Instruction Type:Provider Instructions for Treatment How to access health informa tion online Indication:Nonsmoker Start:22-Aug-2018 Instruction Type:Patient Education How to access health informa tion online - Detail Indication:Nonsmoker Start:22-Aug-2018 Instruction Type:Patient Education Patient Instructions Indication:Nonsmoker Start:22-Aug-2018 Instruction Type:Provider Instructions for Treatment How to access health informa tion online Indication:Nonsmoker Start:05-Aug-2018 Instruction Type:Patient Education How to access health informa tion online - Detail Indication:Nonsmoker Start:05-Aug-2018 Instruction Type:Patient Education Patient Instructions Indication:Nonsmoker Start:05-Aug-2018 Instruction Type:Provider Instructions for Treatment How to access health informa tion online Indication:BMI 28.0-28.9,adult Start:15-Jul-2017 Instruction Type:Patient Education How to access health informa tion online - Detail Indication:BMI 28.0-28.9,adult Start:15-Jul-2017 Instruction Type:Patient Education Patient Instructions Indication:Chest congestion Start:15-Jul-2017 Instruction Type:Provider Instructions for Treatment How to access health informa tion online Indication:Nonsmoker Start:21-May-2017 Instruction Type:Patient Education How to access health informa tion online - Detail Indication:Nonsmoker Start:21-May-2017 Instruction Type:Patient Education Patient Instructions Indication:Cough Start:21-May-2017 Instruction Type:Provider Instructions for Treatment How to access health informa tion online Indication:Nonsmoker Start:07-Mar-2017 Instruction Type:Patient Education How to access health informa tion online - Detail Indication:Nonsmoker Start:07-Mar-2017 Instruction Type:Patient Education Patient Instructions Indication:Nonsmoker Start:07-Mar-2017 Instruction Type:Provider Instructions for Treatment How to access health informa tion online Indication:Acute upper respiratory infection Start:01-Mar-2017 Instruction Type:Patient Education How to access health informa tion online - Detail Indication:Acute upper respiratory infection Start:01-Mar-2017 Instruction Type:Patient Education Patient Instructions Indication:Acute upper respiratory infection Start:01-Mar-2017 Instruction Type:Provider Instructions for Treatment How to access health informa tion online Indication:BMI 28.0-28.9,adult Start:27-Jun-2016 Instruction Type:Patient Education How to access health informa tion online - Detail Indication:BMI 28.0-28.9,adult Start:27-Jun-2016 Instruction Type:Patient Education Patient Instructions Indication:BMI 28.0-28.9,adult Start:27-Jun-2016 Instruction Type:Provider Instructions for Treatment How to access health informa tion online Indication:Nonsmoker Start:31-May-2016 Instruction Type:Patient Education How to access health informa tion online - Detail Indication:Nonsmoker Start:31-May-2016 Instruction Type:Patient Education Patient Instructions Indication:Nonsmoker Start:31-May-2016 Instruction Type:Provider Instructions for Treatment How to access health informa tion online Indication:URI (upper respiratory infection) Start:11-Apr-2016 Instruction Type:Patient Education How to access health informa tion online - Detail Indication:URI (upper respiratory infection) Start:11-Apr-2016 Instruction Type:Patient Education Patient Instructions Indication:URI (upper respiratory infection) Start:11-Apr-2016 Instruction Type:Provider Instructions for Treatment How to access health informa tion online Indication:Gastritis Start:12-Jul-2015 Instruction Type:Patient Education How to access health informa tion online - Detail Indication:Gastritis Start:12-Jul-2015 Instruction Type:Patient Education Patient Instructions Indication:Gastritis Start:12-Jul-2015 Instruction Type:Provider Instructions for Treatment Patient Instructions Indication:Viral infection, unspecified Start:15-Apr-2014 Instruction Type:Provider Instructions for Treatment Patient Instructions Indication:Hip pain, left Start:28-Jan-2013 Instruction Type:Provider Instructions for Treatment Patient Instructions Indication:Anemia Start:22-Feb-2012 Instruction Type:Provider Instructions for Treatment Name Dates Details Nonsmoker : How to access he alth information online Indication:Nonsmoker Nonsmoker : How to access he alth information online - Detail Indication:Nonsmoker Nonsmoker : Patient Instruct ions Indication:Nonsmoker BMI 28.0-28.9,adult : How to access health information online Indication:BMI 28.0-28.9,adult BMI 28.0-28.9,adult : How to access health information online - Detail Indication:BMI 28.0-28.9,adult Chest congestion : Patient I nstructions Indication:Chest congestion Cough : Patient Instructions Indication:Cough Acute upper respiratory infe ction : How to access health information online Indication:Acute upper respiratory infection Acute upper respiratory infe ction : How to access health information online - Detail Indication:Acute upper respiratory infection Acute upper respiratory infe ction : Patient Instructions Indication:Acute upper respiratory infection BMI 28.0-28.9,adult : Patien t Instructions Indication:BMI 28.0-28.9,adult URI (upper respiratory infec tion) : How to access health information online Indication:URI (upper respiratory infection) URI (upper respiratory infec tion) : How to access health information online - Detail Indication:URI (upper respiratory infection) URI (upper respiratory infec tion) : Patient Instructions Indication:URI (upper respiratory infection) Gastritis : How to access he alth information online Indication:Gastritis Gastritis : How to access he alth information online - Detail Indication:Gastritis Gastritis : Patient Instruct ions Indication:Gastritis Viral infection, unspecified : Patient Instructions Indication:Viral infection, unspecified Hip pain, left : Patient Ins tructions Indication:Hip pain, left Anemia : Patient Instruction s Indication:Anemia Name Dates Details Nonsmoker : How to access he alth information online Indication:Nonsmoker Nonsmoker : How to access he alth information online - Detail Indication:Nonsmoker Nonsmoker : Patient Instruct ions Indication:Nonsmoker BMI 28.0-28.9,adult : How to access health information online Indication:BMI 28.0-28.9,adult BMI 28.0-28.9,adult : How to access health information online - Detail Indication:BMI 28.0-28.9,adult Chest congestion : Patient I nstructions Indication:Chest congestion Cough : Patient Instructions Indication:Cough Acute upper respiratory infe ction : How to access health information online Indication:Acute upper respiratory infection Acute upper respiratory infe ction : How to access health information online - Detail Indication:Acute upper respiratory infection Acute upper respiratory infe ction : Patient Instructions Indication:Acute upper respiratory infection BMI 28.0-28.9,adult : Patien t Instructions Indication:BMI 28.0-28.9,adult URI (upper respiratory infec tion) : How to access health information online Indication:URI (upper respiratory infection) URI (upper respiratory infec tion) : How to access health information online - Detail Indication:URI (upper respiratory infection) URI (upper respiratory infec tion) : Patient Instructions Indication:URI (upper respiratory infection) Gastritis : How to access he alth information online Indication:Gastritis Gastritis : How to access he alth information online - Detail Indication:Gastritis Gastritis : Patient Instruct ions Indication:Gastritis Viral infection, unspecified : Patient Instructions Indication:Viral infection, unspecified Hip pain, left : Patient Ins tructions Indication:Hip pain, left Anemia : Patient Instruction s Indication:Anemia Health Concerns Infection Onset Date Last Indicated Resolved Time COVID-19 Rule-Out 01/21/2022 01/21/2022 Infection Onset Date Last Indicated Resolved Time COVID-19 Rule-Out 01/21/2022 01/21/2022 01/22/2022 1:16 AM EDT COVID-19 Confirmed 01/21/2022 01/21/2022 Additional Source Comments (unrecognized sect ion and content) No Status Records FoundNo Status Records FoundNo Status Records FoundNo Status Records Found INFORMATION SOURCE (unrecogn ized section and content) DATE CREATED AUTHOR AUTHOR'S ORGANIZ ATION 12/10/2017 [facility] DATE CREATED AUTHOR AUTHOR'S ORGANIZ ATION 09/20/2018 [facility] DATE CREATED AUTHOR AUTHOR'S ORGANIZ ATION 01/22/2022 [facility] Source Comments (unrecognize d section and content) In the event this informatio n is protected by the Federal Confidentiality of Alcohol and Drug Abuse Patient Records regulations: The Federal rules restrict any use of the information to criminally investigate or prosecute any alcohol or drug abuse patient.[facility] the event this information is protected by the Federal Confidentiality of Alcohol and Drug Abuse Patient Records regulations: The Federal rules restrict any use of the information to criminally investigate or prosecute any alcohol or drug abuse patient.[facility] the event this information is protected by the Federal Confidentiality of Alcohol and Drug Abuse Patient Records regulations: The Federal rules restrict any use of the information to criminally investigate or prosecute any alcohol or drug abuse patient.[facility] Reason for Visit (unrecogniz ed section and content) Reason Comments Nasal Congestion post nasal drip, cou gh and bodyaches x 3 days Reason Comments Results Care Teams (unrecognized sec tion and content) [employer] Relationship Specialty Start Date End Date Aubrie Murguia MD [address] [place], [place] [phone] PCP - General Internal Medicine 01/21/22 [employer] Relationship Specialty Start Date End Date Aubrie Murguia MD [address] [place] [phone] PCP - General Internal Medicine 01/21/22 FOR RECORDS PERTAINING TO PATIENTS WHO ARE OR HAVE BEEN ENROLLED IN A CHEMICAL DEPENDENCY/SUBSTANCEABUSE PROGRAM, SOME INFORMATION MAY BE OMITTED. This clinical summary was aggregated from multiple sources. Caution should be exercised in using it in the provision of clinical care. This summary normalizes information from multiple sources, and as a consequence, information in this document may materially change the coding, format and clinical context of patient data. In addition, data may be omitted in some cases. CLINICAL DECISIONS SHOULD BE BASED ON THE PRIMARY CLINICAL RECORDS. [employer] [facility]. provides no warranty or guarantee of the accuracy or completeness of information in this document.
[2023-07-26 12:20] LABS: Troponin-I HS 21 pg/mL (3.0-78.0)
== END | disposition home or self-care (01) ==
LOC: LAB 11:40
PROVIDERS: PCP Internal Medicine; Referring Provider Physician Assistant Medical; Visit Provider Physician Assistant Medical
DX: R07.9 Chest pain, unspecified (principal); R06.09 Other forms of dyspnea
CPT/HCPCS: 36415; 84484

== ENCOUNTER → 2023-08-22 | Outpatient (CLI) | payer MEDICARE, SELFPAY ==
[2023-08-22 12:58] LABS: PSA,Total- Diagnostic 4.14 ng/mL (0.0-4.0)
== END | disposition home or self-care (01) ==
PROVIDERS: PCP Internal Medicine; Referring Provider Urology; Visit Provider Urology
DX: C61 Malignant neoplasm of prostate (principal)
CPT/HCPCS: 36415; 84153

== ENCOUNTER → 2023-08-28 | Outpatient (CLI) | payer MEDICARE, SELFPAY ==
--- OUTSIDE RECORDS SUMMARY | 2023-08-28 06:58 | XMS RPT_ITS | CCD ---
Author Name Unknown Address [address] [place] [address] Organization [facility] Care Team Providers Care Creping Machine Operator Name Role Phone LOPEZJOSEPH NAZARIONETH E Unavailable Unavailable LOPEZ LAYO E Unavailable Unavailable LOPEZ, LAYO Unavailable Unavailable LOPEZ, LAYO Unavailable Unavailable LOPEZ, LAYO Unavailable Unavailable LOPEZ LAYO Unavailable Unavailable Rosette Arteaga Unavailable [place] Unavailable Violetta Craig Unavailable Estefany Merino Unavailable Unavailable Nadeem, Wanda L Unavailable Unavailable Perfecto, Zabrina Unavailable Unavailable Manchak, Aleah Unavailable Unavailable Unavailable Unavailable Rosette Arteaga Unavailable Anette, ENT [...] [HYDROCODONE-KAMLA TAMINOPHEN] Drug Allergy 12-03-19 12 Intolerance [facility] Repository (5 sources) acetaminophen / oxyCODONE; Translations: [OXYCODONE-ACETA MINOPHEN] Drug Allergy 09-27-19 12 Other: See Comments [facility] Repository (14 sources) Antihistamines; Translations: [ANTIHISTAMINES] Propensity to adverse reactions to drug (disorder) 07-11-19 07 [facility] Repository (5 sources) Sulfonamides (Antibiotic); Translations: [SULFA (SULFONAMIDE ANTIBIOTICS)] Propensity to adverse reactions to drug (disorder) 07-11-19 07 [facility] Repository (16 sources) acetaminophen / HYDROcodone; Translations: [...] 97.81 [degF] Carlene Athy PA-C Work Phone: [facility] 01-21-2022 10:47-0400 Body weight 90.72 kg Carlene Athy PA-C Work Phone: [facility] 01-21-2022 10:47-0400 Diastolic blood pressure 72 mm[Hg] Carlene Athy PA-C Work Phone: [facility] 01-21-2022 10:47-0400 Heart rate 70 /min Carlene Athy PA-C Work Phone: [facility] 01-21-2022 10:47-0400 Respiratory rate 16 /min Carlene Athy PA-C Work Phone: [facility] 01-21-2022 10:47-0400 SaO2% (BldA) [Mass fraction] 97 % Carlene Athy PA-C Work Phone: [facility] 01-21-2022 10:47-0400 Systolic blood pressure 134 mm[Hg] Carlene Athy PA-C Work Phone: [facility] 10-30-2021 14:07-0400 Body temperature 98.2 [degF] Gregoria Ambrocio BATTERY ASSEMBLER.ACADEMIC DEAN Work Phone: [facility] 10-30-2021 14:07-0400 Body weight 91.81 kg Gregoria Ambrocio BATTERY ASSEMBLER.ACADEMIC DEAN Work Phone: [facility] 10-30-2021 14:07-0400 Diastolic blood pressure 50 mm[Hg] Gregoria Ambrocio BATTERY ASSEMBLER.ACADEMIC DEAN Work Phone: [facility] 10-30-2021 14:07-0400 Heart rate 75 /min Gregoria Ambrocio BATTERY ASSEMBLER.ACADEMIC DEAN Work Phone: [facility] 10-30-2021 14:07-0400 Respiratory rate 21 /min Gregoria Albrecht BATTERY ASSEMBLER.ACADEMIC DEAN Work Phone: [facility] 10-30-2021 14:07-0400 SaO2% (BldA) [Mass fraction] 98 % Gregoria Ambrocio BATTERY ASSEMBLER.ACADEMIC DEAN Work Phone: [facility] 10-30-2021 14:07-0400 Systolic blood pressure 142 mm[Hg] Gregoria Ambrocio BATTERY ASSEMBLER.ACADEMIC DEAN Work Phone: [facility] 09-19-2018 09:57-0400 BMI (Body Mass Index) 29.06 kg/m2 [facility] Work Phone: 09-19-2018 09:57-0400 Body weight 91.85 kg Rosette [facility] Work Phone: 09-19-2018 09:57-0400 BP Diastolic 80 mm[Hg] [facility] Work Phone: Encounters Encounter Date Encounter Type Care Provider Facility Start: 01-22-2022 Telephone encounter Carlene clark PA-C Work Phone: [facility] Procedures Date Procedure Procedure Detail Performing Clinician Start: 03-30-2019 End: 03-30-2019 Inital Evaluation (1) - PT Comments: See Note; NOTES: [facility] [place] [address] / REHABILITATION SERVICES INITIAL EVALUATION MR#: [id number] Acct: [id number] Name: ELIZABETH MURCIA Rep #: [id number] : 1935 83 From: Jesus Esteban PT, Cert. MDT, OCS Referring Dr.: LYDIA [place] Status: REG RCR Insurance: [facility] SELF PAY INSURANCE Patient's Visit Information ELIZABETH César TWIN is a 83 year old M referred to Physical Therapy by Brooklynn Kath, MOSHGIACH-C with a diagnosis of BALANCE PROBLEMS. Date [...] to be FAXED BACK to us at [phone] for Medicare purposes. For Medicare only, by [...] Emergency Department Summary Comments: See Note; NOTES: [facility] Medical Records Department [address] [address] Emergency Department Summary 03/11/19 1036 MR#: [id number] Acct: [id number] Name: ELIZABETH MURCIA Rep #: [id number] : 1935 83 From: Justina Camara MD [...] scheduled. Please fax records to Dr Valencia, [facility] ED Disposition - Plan for [...] your Primary Care Provider. Call [facility] ([phone]) or report to the closest Emergency Room. Call 911 if necessary. 03/11/19 3688 <Electronically signed by Justina Camara MD> Date Justina Camara MD Cosigner Signature (If Indicated): Date CC: Rosette Simon Start: 03-11-2019 End: 03-16-2019 Brain/Head without Contrast Comments: See Note; NOTES: [facility] Imaging Services [address] [place] [address] Brain/Head without Contrast MR#: [id number] Acct: [id number] Name: ENEIDAELIZABETH LR César Rep #: [id number] : 1935 M 83 From: Dayne Little MD PCP: Rosette Arteaga DO Status: [facility] ER Study: Brain/Head without Contrast Date of Exam: 03/11/19 Exam# [id number] Ordering Dr: Justina Camara MD STUDY: CT [...] changes of the brain. Electronically Signed: Dayne Little, at 11:30 EDT , Service support , CC: Justina Camara MD; Rosette Arteaga DO Patient Flow Coordinator: Signed Rosette Arteaga Start: 03-11-2019 End: 03-16-2019 Spine Cervical without Contras Comments: See Note; NOTES: [facility] Imaging Services [address] [place] [address] Spine Cervical without Contras MR#: [id number] Acct: [id number] Name: ELIZABETH MURCIA Rep #: [id number] : 1935 83 From: Dayne Little MD PCP: Rosette Arteaga DO Status: [facility] ER Study: Spine Cervical without Contras Date of Exam: 03/11/19 Exam# [id number] Ordering Dr: Justina Camara MD STUDY: CT [...] CC: Justina Camara MD; Rosette Arteaga DO Patient Flow Coordinator: Signed Rosette Arteaga Start: 09-19-2018 End: 09-19-2018 Venous Duplex Lower Extremity Comments: See Note; NOTES: [facility] Cardiovascular Services [address] [place] [address] Venous Duplex US - Pepe Extrem 09/19/18 1107 MR#: [id number] Acct: [id number] Name: SNOW MURCIA Rep #: [id number] : 1935 83 From: lAan Aleman MD Attending Dr: Rosette Arteaga DO [...] called and/or faxed to Dr. Arteaga @ [phone] @ 11:30 am. Interpretation Summary No evidence for acute deep venous thrombosis bilateral lower extremities with patent and compressible bilateral great saphenous veins. Ordering Physician: Rosette Arteaga Referring Physician: Rosette Arteaga Performed By: Divya Campos, RDCS, RVT 09/19/18 1724 Date Alan Aleman MD CC: Rosette Arteaga DO Date Dictated: 09/19/18 1107 Date Transcribed: 09/19/181723 Patient Flow Coordinator: Signed Rosette Arteaga Work Phone: Start: 08-14-2018 End: 08-14-2018 Chest PA and Lateral Comments: See Note; NOTES: [facility] Imaging Services [address] [address] Chest PA and Lateral MR#: [id number] Acct: [id number] Name: SNOW MURCIA Rep #: [id number] : 1935 M 83 From: Jose Manuel Singer MD PCP: Rosette Arteaga DO Status: REG CLI Study: Chest PA and Lateral Date of Exam: 08/14/18 Exam# [id number] Ordering Dr: Rosette Arteaga DO STUDY: X-RAY [...] Service support , CC: Rosette Arteaga DO Patient Flow Coordinator: Signed Rosette Arteaga Work Phone: Start: 07-22-2018 End: 07-22-2018 Inital Evaluation (1) - PT Comments: See Note; NOTES: [facility] [address] [place] [address]. [address] [place] [address] / REHABILITATION SERVICES INITIAL EVALUATION MR#: [id number] Acct: [id number] Name: SNOW MURCIA Rep #: [id number] : 1935 82 From: Jesus Esteban PT, Cert. MDT, OCS Referring DrAlex: Sheyla Bravo Status: REG R Insurance: [facility] SELF PAY INSURANCE Patient's Visit [...] to be FAXED BACK to us at [phone] for Medicare purposes. For Medicare only, by signing this I certify the plan of care. Please let me know if there are questions or concerns regarding this plan of care. Physician Signature: Date: <Electronically signed by Jesus Esteban PT, Cert. T, OCS> 07/22/18 1614 CC: Rosette Arteaga DO; Sheyla FREEMAN Prebish ARAINE Signed Rosette Arteaga Start: 07-05-2015 End: 07-05-2015 Emergency Department Summary Comments: See Note; NOTES: [facility] Medical Records Department [address] [place] [address] Emergency Department Summary MR#: [id number] Acct: [id number] Name: SNOW MURCIA Rep #: [id number] : 1935 79 From: Jorge Luis Evans MD PCP: Yessenia Muñoz MD Status: [facility] DATE OF SERVICE: 07/05/2015 CHIEF COMPLAINT: [...] travel, although he recently came home from [place] about 1 week ago, he was eating [...] C: Yessenia Muñoz MD T: NTS JOB: [id number] 07/05/15 1727 <Electronically signed by Jorge Luis Evans MD> Date Jorge Luis Evans MD Cosigner Signature (If Indicated): Date CC: Yessenia Muñoz MD Date Dictated: 07/05/15 1002 Date Transcribed: 07/05/15 1002 Patient Flow Coordinator: Signed Rosette Arteaga Start: 07-05-2015 End: 07-05-2015 Discharge Instruction Comments: See Note; NOTES: [facility] Medical Records Department [address] [address] Discharge Instruction 07/05/15 0932 MR#: [id number] Acct: [id number] Name: SNOW MURCIA Rep #: [id number] : 1935 79 From: Jorge Luis Evans [...] problems, contact your doctor. Call [facility] ([phone]) or report to the closest Emergency Room. Call 911 if necessary. 07/05/15 09 <Electronically signed by Jorge Luis Evans MD> Date Jorge Luis Evans MD Cosigner Signature (If Indicated): Date CC: Yessenia Arteaga TKA 1-12 left Estefany odom Plan of Treatment Date Care Activity Detail Author Start: 02-15-2022 Influenza vaccination C [facility] Start: 01-21-2022 End: 02-04-2022 SARS-CoV-2 (COVID-19) RNA [Presence] in Respiratory specimen by SHRUTHI with probe detection [facility] Work Phone: Immunizations Immunization Date Immunization Notes Care Provider Altagracia nazario 03-17-2011 influenza virus vacc ine, unspecified formulation Gregoria Albrecht BATTERY ASSEMBLER.ACADEMIC DEAN Work Phone: [facility] 03-17-2008 pneumococcal polysaccharide vaccine, 23 valent Gregoria Alrbecht BATTERY ASSEMBLER.ACADEMIC DEAN Work Phone: [facility] 06-29-2005 pneumococcal polysaccharide vaccine, 23 valent Gregoria Albrecht BATTERY ASSEMBLER.ACADEMIC DEAN Work Phone: [facility] Work Phone: Payers Date Payer Category Payer Medicare A[employer] MEDICARE A ETNA MEDICARE PPO [id number] 2021-Present [phone] [address] [place] [address] PPO [id number] 2018 Medicare [id number] 2009 Medicare AETNA MEDICARE A ETNA MEDICARE PPO [id number] 2009-Present [phone] [address] [place] [address] PPO [id number] 1935 Unknown [id number] Medicare [id number] Unknown [employer] Life Ins/Medicare Unknown [id number] Social History Date Type Detail Facility Alcohol [...] agreeable with plan. documented in this encounter [facility] 01-21-2022 Note HNO ID: [id number] Author: Carlene Rodarte PA-C Service: ? Author Type: Physician Assistant Professor Of Education Type: Progress Notes Filed: 01/21/2022 1:13 PM Note Text: This note was created using [employer]. Subjective Snow Murcia is a 86 year [...] Reported on 09/25/2018 ) 1 Inhaler 0 Gligqwzsuoj-Dqgsniani-Cpq C-Mn (GLUCOSAMINE CHONDROITIN MAXSTR) 500-400 mg cap [...] General: No focal (more content not included)... [facility] 01-21-2022 History of Present illness Narrative This note was created using [employer]. Subjective Snow Murcia is a 86 year [...] Reported on 09/25/2018 ) 1 Inhaler 0 Ormbvzyoajw-Vhacsfznb-Gpr C-Mn (GLUCOSAMINE CHONDROITIN MAXSTR) 500-400 mg cap [...] Carlene Rodarte PA-C documented in this encounter [facility] 10-30-2021 Note HNO ID: [id number] Author: Gregoria Albrecht APRN.ACADEMIC DEAN Service: ? Author Type: Nurse Practitioner Type: Progress Notes Filed: 10/30/2021 2:40 PM Note Text: Subjective The history is provided by the patient. No american sign language interpreter was used. HPI Snow Murcia is a [...] have confirmed and edited as necessary, the [facility] Review of Systems Constitutional: Negative for chills [...] detail warranting prompt ER evaluation. Gregoria Albrecht APRN.ACADEMIC DEAN [facility] 10-30-2021 History of Present illness Narrative Images from the original note were not included. Subjective The history is provided by the patient. No american sign language interpreter was used. HPI Snow Murcia is a [...] have confirmed and edited as necessary, the [facility] Review of Systems Constitutional: Negative for chills [...] Gregoria Albrecht APRN.CNP documented in this encounter [facility] 10-30-2021 Instructions Gregoria Albrecht APRN.CNP - [...] appointment as needed documented in this encounter [facility] documented as of this encounter (statuses as of 10/30/2021) [facility] History of Past illness Narrative* Problem Noted Date Resolved Date Essential hypertension, malignant 03/21/2016 documented as of this encounter (statuses as of 01/21/2022) [facility] History of Past illness Narrative* Problem Noted Date Resolved Date Essential hypertension, malignant 03/21/2016 documented as of this encounter (statuses as of 01/22/2022) [facility] Abrasion- Primary Abrasion or friction burn of other, multiple, and unspecified sites, without mention of infection [facility] Viral URI- Primary Acute upper respiratory infections of unspecified site documented in this encounter [facility] Summary Purpose Family History No Family [...] DATE CREATED AUTHOR AUTHOR'S ORGANIZ ATION 12/10/2017 [facility] DATE CREATED AUTHOR AUTHOR'S ORGANIZ ATION 09/20/2018 [facility] DATE CREATED AUTHOR AUTHOR'S ORGANIZ ATION 01/22/2022 [facility] Source Comments (unrecognize d section and content) In the event this informatio n is protected by the Federal Confidentiality of Alcohol and Drug Abuse Patient Records regulations: The Federal rules restrict any use of the information to criminally investigate or prosecute any alcohol or drug abuse patient.[facility] the event this information is protected by the Federal Confidentiality of Alcohol and Drug Abuse Patient Records regulations: The Federal rules restrict any use of the information to criminally investigate or prosecute any alcohol or drug abuse patient.[facility] the event this information is protected by the Federal Confidentiality of Alcohol and Drug Abuse Patient Records regulations: The Federal rules restrict any use of the information to criminally investigate or prosecute any alcohol or drug abuse patient.[facility] Reason for Visit (unrecogniz ed section and content) Reason Comments Nasal Congestion post nasal drip, cou gh and bodyaches x 3 days Reason Comments Results Care Teams (unrecognized sec tion and content) Creping Machine Operator Relationship Specialty Start Date End Date Aubrie Murguia MD [address] [place], [place] [phone] PCP - General Internal Medicine 01/21/22 Creping Machine Operator Relationship Specialty Start Date End Date Aubrie Murguia MD [address] [place] [phone]- PCP - General Internal Medicine 01/21/22 FOR [...] BE BASED ON THE PRIMARY CLINICAL RECORDS. [email or web address] [facility]. provides no warranty or guarantee of the accuracy or completeness of information in this document.
--- NOTE | 2023-08-28 06:59 | ECHOD_ITS ---
Reason For Study: Chest Pain Procedure This was a 2D Doppler, Color Flow transthoracic echocardiogram. Myocardial strain analysis was performed in this exam to aid in the assessment of cardiac function. Exam performed in department. Left Ventricle Normal LV size. Severe concentric left ventricular hypertrophy. The left ventricular ejection fraction is 70 %. Stage 3 diastolic dysfunction. No regional wall motion abnormalities noted. Right Ventricle Normal RV size. Normal systolic function. Atria The left atrium is moderately enlarged. Normal right atrium. Mitral Valve Mild diffuse mitral valve thickening. Mild-Moderate (1-2+) eccentric mitral valve insufficiency. Tricuspid Valve Normal tricuspid valve. Mild to moderate (1-2+) tricuspid valve insufficiency. Pulmonary artery systolic pressure is 49 mmHg. Aortic Valve Trisinus/trileaflet aortic valve. Mild (1+) aortic valve insufficiency. Pulmonic Valve Normal pulmonic valve. Mild (1+) pulmonic valve insufficiency. Great Vessels Normal aortic root. The pulmonary artery is normal size. Inferior vena cava collapse with respiration. Pericardium/Pleural No pericardial effusion. MMode/2D Measurements & Calculations LVIDd: 4.5 cm IVSd: 2.1 cm Ao root diam: 3.5 cm LVIDs: 3.1 cm LVPWd: 1.7 cm RVDd: 3.7 cm FS: 32.5 % LAV(MOD-bp): 63.7 ml LVAd ap4: 29.8 cm2 SV(MOD-sp4): 59.7 ml LAV(MOD-bp) Indexed: 30.7 ml/m2 LVLd ap4: 8.4 cm LAV(MOD-sp2): 50.2 ml EDV(MOD-sp4): 84.7 ml LAV(MOD-sp4): 79.9 ml EDV(sp4-el): 89.2 ml LVAs ap4: 14.3 cm2 LVLs ap4: 7.1 cm ESV(MOD-sp4): 25.0 ml ESV(sp4-el): 24.7 ml EF(MOD-sp4): 70.5 % EF(sp4-el): 72.3 % SV(sp4-el): 64.6 ml LA A4 area: 25.2 cm2 LA dimension(2D): 5.1 cm RA A4 area: 16.6 cm2 TAPSE: 2.1 cm Time Measurements MV dec time: 0.11 sec Doppler Measurements & Calculations MV E max wali: 102.0 cm/sec Lat Peak E' Wali: 5.9 cm/sec Med Peak E' Wali: 8.8 cm/sec MV A max wali: 28.9 cm/sec E/E' lat: 17.4 E/E' med: 11.6 MV E/A: 3.5 Ao V2 max: 161.4 cm/sec AI max wali: 298.9 cm/sec MV dec slope: 962.9 cm/sec2 Ao max P.4 mmHg AI max P.8 mmHg Ao V2 mean: 113.4 cm/sec Ao mean P.8 mmHg AI dec slope: 98.5 cm/sec2 Ao V2 VTI: 36.6 cm AI P1/2t: 889.1 msec LV V1 max: 113.3 cm/sec PA V2 max: 137.6 cm/sec PI end-d wali: 149.6 cm/sec LV V1 max P.1 mmHg TR max wali: 332.5 cm/sec TR max P.2 mmHg ECHO/Echo Complete Interpretation Summary Normal LV size. Severe concentric left ventricular hypertrophy. The left ventricular ejection fraction is 70 %. Stage 3 diastolic dysfunction. The global longitudinal strain is mildly abnormal. Pulmonary artery systolic pressure is 49 mmHg. Apical sparing noted. The global longitudinal strain = -15.9% (abnormal). The g lobal longitudinal strain is mildly abnormal. Ordering Physician: Jenna Song Referring Physician: Aubrie Murguia Performed By: Whit Bergeron RDCS, RVT
--- NOTE | 2023-08-28 09:45 | EKG12_ITS ---
Test Reason : BRADYCARDIA Blood Pressure : / mmHG Vent. Rate : 057 BPM Atrial Rate : 057 BPM P-R Int : 272 ms QRS Dur : 136 ms QT Int : 530 ms P-R-T Axes : 072 033 078 degrees QTc Int : 515 ms Sinus bradycardia with 1st degree A-V block with Blocked Premature atrial complexes Left bundle branch block Abnormal ECG Confirmed by FUNMI WALLACE, MARY GRACE ([id number]), editorial assistant ABEL FLOREZ ([id number]) on 08/28/2023 1:40:45 PM Referred By: Jenna Song Confirmed By:MARY GRACE CHOUDHARY MD
--- NOTE | 2023-08-28 14:51 | STRESSREP ---
Stress Test Report Pharmacologic myocardial perfusion stress test. 88-year-old man with a history of chest pain Resting EKG demonstrates sinus bradycardia with a rate of 51 bpm and left bundle branch block morphology. Premature atrial complexes and blocked PACs are noted with a rate of 51 bpm. Resting blood pressure is 142/68 mmHg. The patient initially exercised according to the Christofer protocol for 3 minutes and 17 seconds but there was failure to obtain 85% of max impacted heart rate and the test was changed to a pharmacologic test. 0.4 mg of regadenoson was infused per usual protocol followed by rapid intravenous saline flush injection. Continuous EKG monitoring was performed. The maximum heart rate was 56 bpm which was 42% of max impacted heart rate the maximum workload was 1 metabolic equivalent. At rest there were no ST or T wave changes noted to suggest ischemia and at peak infusion nonspecific ST changes were noted which did not meet the criteria for ischemia. No clinical angina is noted. The final blood pressure was 140/70 mmHg. Myocardial perfusion protocol. 14.5 mCi of technetium 99m sestamibi was injected at rest. 0.4 mg of regadenoson was infused per usual protocol. At peak infusion 44.1 mCi of technetium 99m sestamibi was injected stress images were obtained stress and rest images were reconstructed and compared in the short axis vertical long and horizontal long axis. Gated images were also obtained. Perfusion SPECT analysis: Review of the stress images demonstrate normal uptake of tracer noted in all areas of the myocardium. The resting images similar demonstrated normal uptake of tracer noted in all areas of the myocardium. No areas of reversibility are noted to suggest ischemia and no previous infarct is noted. Gated SPECT analysis: The gated ejection fraction is 45%. Conclusion: Normal pharmacologic myocardial perfusion stress test. Mildly reduced ejection fraction.
== END | disposition home or self-care (01) ==
PROVIDERS: PCP Internal Medicine; Referring Provider Physician Assistant Medical; Visit Provider Physician Assistant Medical
DX: I49.3 Ventricular premature depolarization (principal); R00.1 Bradycardia, unspecified; R07.9 Chest pain, unspecified; I44.7 Left bundle-branch block, unspecified; R94.31 Abnormal electrocardiogram [ECG] [EKG]
CPT/HCPCS: 78452; 93005; 93017; 93225; 93226; 93306; A9500; J7040; A4216; J2785

== ENCOUNTER → 2023-09-04 | Outpatient (CLI) | payer MEDICARE, SELFPAY ==
--- NOTE | 2023-09-04 14:52 | RAD_ITS ---
INDICATION: procedure EXAMINATION/TECHNIQUE: X-RAY - XR Chest 2 Views COMPARISON: Prior study dated: 01/04/2022 FINDINGS: LINES/DEVICES: None. LUNGS: Mild elevation of the right hemidiaphragm. Minimal linear stranding in the right lower lung could be due to scarring. No focal infiltrate is seen. No evidence of pleural effusions. MEDIASTINUM AND CARDIOVASCULAR STRUCTURES: Borderline cardiac silhouette. Tortuosity of the thoracic aorta. Calcified mediastinal nodes. BONES AND SOFT TISSUES: Unremarkable. RAD/Chest PA and Lateral IMPRESSION: No radiographic evidence of acute cardiopulmonary disease. Electronically Signed: Cordell Alvarez MD at 11:18 EDT ,
[2023-09-04 15:11] LABS: Mucous, Urine 0 SEEN /hpf (<or=2+); Red Blood Cells-Urine 0 SEEN /hpf (0-5); Squamous Epithelial Cells - UA 0 SEEN /hpf (0-5)
[2023-09-04 16:12] LABS: Hematocrit 44.8 % (40-54); Hemoglobin 14.4 g/dL (13.0-16.5); Mean Corp Hgb Conc 32.1 g/dL (32-36); Mean Corpuscular Volume 96.6 fL (80-94); Mean Platelet Vol. 12.1 fl (6.2-12.0); Platelet Count 124 K/mm3 (150-450); RBC Distribution Width CV 14.3 % (11.6-14.6); RBC Distribution Width SD 50.3 fl (35.1-43.9); Red Blood Count 4.64 M/mm3 (4.6-6.2); White Blood Count 8.8 K/mm3 (4.4-11.0)
[2023-09-04 16:14] LABS: Color, Urine Yellow (Yellow); Glucose, Dipstick Normal (Normal); Ketone-Dipstick Negative (Negative); Leukocyte Esterase-Dipstick 500 /ul (Negative); Nitrite-Dipstick Positive (Negative); Occult Blood-Urine 25 /ul (Negative); Protein-Dipstick 100 mg/dl (Negative); Urine Bilirubin Dipstick Negative (Negative); Urine Clarity Sl. Cloudy (Clear); Urine Urobilinogen Normal (Normal); Urine pH 6.5 (5.0 - 8.0)
[2023-09-04 16:27] LABS: Anion Gap 6 (5-15); BUN 30 mg/dL (7-18); BUN/Creat Ratio 19.7 RATIO (10-20); Calcium,Total 9.4 mg/dL (8.5-10.1); Chloride 110 mmol/L (98-107); Creatinine, Serum 1.52 mg/dL (0.70-1.30); EST Glomerular Filtration Rate 46 mL/min (>60); Est Glom Filt Rate - Afr Amer 56 mL/min (>60); Glucose 99 mg/dL (74-106); Potassium 4.1 mmol/L (3.5-5.1); Sodium Level 141 mmol/L (136-145)
[2023-09-04 16:31] LABS: International Normalized Ratio 1.2; Prothrombin Time (Protime)PT. 14.9 SECONDS (11.7-14.9)
[2023-09-04 16:35] LABS: Bacteria 2+ /hpf (None Seen); White Blood Cells 50-100 SEEN /hpf (0-5)
== END | disposition home or self-care (01) ==
PROVIDERS: PCP Internal Medicine; Referring Provider Physician Assistant Medical; Visit Provider Physician Assistant Medical
DX: I49.5 Sick sinus syndrome (principal)
CPT/HCPCS: 36415; 71046; 80048; 81001; 85027; 85610

== ENCOUNTER 2023-09-09 13:42 | Observation (INO) | payer MEDICARE, SELFPAY ==
[2023-09-06 13:42] VITALS: BMI 28.5
--- NOTE | 2023-09-09 13:31 | CL.IE_ITS ---
Patient: ELIZABETH MURCIA Study Date: 09/09/2023 Performing: Sanford Newton MD : 1935 Age: 88 Gender: male PROCEDURES PERFORMED [id number])INITIAL PACER INSERT+DUAL LEADS INDICATIONS Sinoatrial node dysfunction/Sick sinus syndrome Atrial fibrillation and complete heart block PROCEDURE DETAILS The patient was brought to the Catheterization Lab in the postabsorptive nonsedated state. Informed consent was obtained prior to the procedure. Local anesthetic was given subcutaneously to the left subclavian region with Lidocaine 2%. Access was achieved and a guidewire was advanced into the left subclavian vein. Incision was made to the left subclavicular area. A peel-away sheath was inserted into the left subclavian vein. PPM ventricular lead was inserted / positioned to right ventricular apex. The sheath was then removed. PPM ventricular lead testing performed. PPM ventricular lead testing performed. A peel-away sheath was inserted into the left subclavian vein. PPM atrial lead was inserted / positioned to the right atrial appendage. The sheath was then removed. PPM atrial lead testing performed. The Ventricular PM lead sutured in place with 2-0 Silk. The Atrial lead sutured in place with 2-0 Silk. PPM generator was attached to the lead(s) and inserted into the pocket. Device pocket was irrigated with antibiotic. Subcutaneous closure was completed with 3-0 Vicryl. Skin closure was completed with 4-0 Vicryl. The patient tolerated the procedure well. Estimated Blood Loss: 30 ml's IMPLANTED / EX-PLANTED DEVICES IMPLANTED DEVICE(S): PPM Ventricular lead - Biazzi Nitrator Operator: [employer], Model # TENDRIL STS , Serial # [id number] PPM Atrial lead - Biazzi Nitrator Operator: [employer], Model # TENDRIL STS , Serial # [id number] PPM Generator - Biazzi Nitrator Operator: [employer], Model # ASSURITY MRI , Serial # [id number] DEVICE PARAMETERS ATRIAL LEAD PARAMETERS: P wave- 2.7 (mV) threshold- 1.25 (V) impedence- 410 (OHMS) VENTRICULAR LEAD PARAMETERS: R wave- 7.8 (mV) threshold- 0.5 (V) impedence- 730 (OHMS) DEVICE PARAMETERS: Mode- DDD Lower rate- 60 Upper rate- 120 CONCLUSIONS / RECOMMENDATIONS Device Conclusions: 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 Ancef 2 Gm IV @ 09/09/2023 12:01:59 Signed By Sanford Newton MD On 09/09/2023 13:30:38 Sanford Newton MD
[2023-09-09 15:47] VITALS: BP 147/64; PULSE 62; RESP 16; TEMP 36.4; O2SAT 97
[2023-09-09 18:00] VITALS: O2SAT 96
[2023-09-09 21:30] VITALS: BP 142/58; PULSE 72; RESP 18; TEMP 36.6; O2SAT 96
[2023-09-09] MEDS: Acetaminophen 325 MG Tablet PO (22:19)
[2023-09-09] MEDS: clonazePAM 0.5 MG Tablet PO (22:20)
[2023-09-09] MEDS: Lisinopril 20 MG Tablet PO (22:20)
[2023-09-10 03:30] VITALS: BP 145/86; PULSE 62; RESP 18; TEMP 36.6; O2SAT 94
--- NOTE | 2023-09-10 05:55 | RAD_ITS ---
INDICATION: Post permanant ICD/Pacemaker -- inspiration/expiration. Arms Down. Wet read to EXAMINATION/TECHNIQUE: X-RAY - XR Chest 3 Views COMPARISON: 09/04/2023 FINDINGS: LINES/DEVICES: New pacemaker device overlying the left chest with dual leads terminating in the region of the right atrium and right ventricle. LUNGS: Patchy opacities in the lung bases greater on the left, new compared to prior. No pneumothorax. MEDIASTINUM: Unremarkable. CARDIAC SILHOUETTE: Not enlarged. BONES AND SOFT TISSUES: No acute abnormalities. RAD/Chest 3 View IMPRESSION: Postpacemaker placement. No pneumothorax. Bibasilar atelectasis or infiltrates, increased. Electronically Signed: Alondra Roth MD at 5:26 EDT ,
[2023-09-10] MEDS: Acetaminophen 325 MG Tablet PO (06:19)
--- NOTE | 2023-09-10 07:34 | PN.CARD_ITS ---
Subjective Subjective Patient seen and evaluated. Appears to be doing well. Status post permanent pacemaker implantation. Objective Data Vital Signs: Vital Signs Temp Pulse Resp BP Pulse Ox O2 Del Method 97.8 F 62 18 145/86 H 94 Room Air 09/10/23 03:30 09/10/23 03:30 09/10/23 03:30 09/10/23 03:30 09/10/23 03:30 09/10/23 03:30 Oxygen Delivery Method Room Air Weight: 199 lb Body Mass Index (BMI) 28.5 Intake & Output: Intake and Output for Last 24 Hours 09/08/23 09/09/23 09/10/23 23:59 23:59 23:59 Intake Total 200 / 440 480 / 480 Output Total 500 / 500 Balance 200 / 440 -20 / -20 Cardiology Labs/Tests Rhythm: EKG: ECHO: Stress Test: Cardiac Cath: PCI: CT Surgery: Holter monitor: EPS: PPM: CXR: Chest CT Scan: Radiography Diagnostic Testing: Radiology Impression Chest X-Ray 09/10/23 05:55 IMPRESSION: Postpacemaker placement. No pneumothorax. Bibasilar atelectasis or infiltrates, increased. Electronically Signed: Alondra Roth MD at 5:26 EDT , Physical Exam Const alert, oriented x3 and no apparent distress General Appearance: cooperative HEENT hearing grossly normal bilaterally Head and Scalp: atraumatic Eyes EOMs intact bilaterally Neck General: normal visual inspection Chest inspection of chest normal and palpation of chest normal Resp normal respiratory effort Auscultation: clear to auscultation bilaterally Cardio regular rate, regular rhythm, S1 normal heart sound and S2 normal heart sound Jugular Venous Distention: JVD GI normal to inspection, nondistended, normoactive bowel sounds Extremity normal capillary refill and no pedal edema Peripheral Pulses: Yes pulses 2+ throughout and femoral pulses present Skin no rashes or lesions noted Neuro oriented x3 and CN's II-XII intact bilaterally Psych Appearance: grossly normal and appropriate Assessment & Plan Assessment/Plan (1) Intermittent complete heart block: PLAN: Patient is status post intermittent complete heart block. Status post per manent pacemaker implantation. Pacemaker interrogation demonstrated normal functioning. Chest x-ray demonstrates normal x-ray positioning. Will discharge for outpatient follow-up.
--- NOTE | 2023-09-10 07:37 | DCINST_ITS ---
Discharge Instructions Diet Discharge Diet: No restrictions (as you feel able. No excessive stretching. No lifting your arm over your head (keep elbow below shoulder level) until seen for your pacemaker check. Do not lift your elbow away from your side until you are seen for your first visit. Keep the arm sling on if it helps remind you not to lift your arm.) Activity Discharge Activity: May Not Drive May shower in (days): 2 Additional Activity Instructions:: May shower or bathe on [day 3]. Do not scrub the incision or soak in the tub. Just wash with soap and let the water run over the incision. Gently pat dry with towel. Medications: Take your pain medication as directed. Refer to your discharge instruction sheet for a list of medications you are to take. Dressing / Incision Call your doctor if your incision/area has: Continuous Slow Oozing, Sudden Increased Bleeding, Increased Pain/ Swelling, Increased Redness, Foul Smelling Discharge and Swelling at the incision site Call your doctor if you observe: Fever of 101 or Higher, Shortness of breath, Dizziness, Fainting spells, Swelling in the ankles, Chest pain, Prolonged hiccupping and Increased palpitations (irregular heartbeat) Suture Line Care: Avoid Pulling/Pushing and Avoid Pinching/Bending Cleanse incision/area with: Do not get Incision Wet and Keep Dressing Clean & Dry Additional Dressing/Incision Instructions:: When dressing is removed, wash and dry incision. Keep covered with a light bandage if it is rubbing against your clothing. Do not cover the incision with an airtight bandage. Change the bandage daily. Do not remove steri strips. The strips will fall off on their own. Follow Up Care Please Follow Up With: Sanford Newton MD When: Pacer follow-up on September 15 at 11 AM. Test Results: Test results from this visit will be discussed in further detail at your follow- up appointment, if applicable. Discharge Plan Admission Admit Date/Time: 09/09/23 13:42 Attending Provider: Sanford Newton Primary Care Provider: Aubrie Murguia Discharge Orders/Prescriptions Prescriptions: No Action zinc 50 mg tablet 50 mg PO DAILY saw palmetto 80 mg capsule 80 mg capsule 160 mg PO DAILY clonazepam 1 mg tablet 0.5 mg PO QHS Qty: 30 Patient Comments: TAKE 1 TABLET BY MOUTH EVERYDAY AT BEDTIME flax seed oil 1,000 mg capsule 1 cap PO DAILY nitroglycerin [Nitrostat] 0.4 mg tablet, sublingual 0.4 mg sublingual Q5-15M PRN (Reason: chest pain) Qty: 25 3RF Rx Instructions: do not exceed 3 doses per episode metoprolol tartrate 25 mg tablet 25 mg PO BID Qty: 180 3RF Hold Instructions: bradycardia cholecalciferol (vitamin D3) 1,000 UNIT tablet 2,000 unit PO DAILY lisinopril 20 mg tablet See Rx Instructions .ROUTE .COMPLEX Qty: 180 3RF Dose Instruction: TAKE 1 TABLET TWICE A DAY Rx Instructions: TAKE 1 TABLET TWICE A DAY nitrofurantoin monohyd/m-cryst [Macrobid] 100 mg capsule 100 mg PO Q12H 7 Days Qty: 14 0RF Rx Instructions: must administer with a meal/food Referrals / Follow Up: Aubrie Murguia MD [Primary Care Provider] - Disposition Disposition (needs filled in before D/C Order can be placed): Home, Self Care
[2023-09-10 09:17] VITALS: BP 162/78; PULSE 60; RESP 16; TEMP 36.2; O2SAT 95
[2023-09-10] MEDS: Lisinopril 20 MG Tablet PO (09:20)
[2023-09-10] MEDS: Nitrofurantoin Macrocrystals 100 MG Capsule PO (09:20)
--- NOTE | 2023-09-10 09:28 | CASEMGMT ---
Patient has order for discharge. RN CM in to discuss needs at discharge. Patient denies needs or help at discharge. Patient had no further questions or concerns.
== END 2023-09-10 07:37 | disposition home or self-care (01) ==
LOC: PCU 15:36
PROVIDERS: Admitting Provider Internal Medicine Cardiovascular Disease; PCP Internal Medicine; Referring Provider Internal Medicine Cardiovascular Disease; Visit Provider Internal Medicine Cardiovascular Disease
DX: Z45.018 Encounter for adjustment and management of other part of cardiac pacemaker (principal); I48.91 Unspecified atrial fibrillation; I44.2 Atrioventricular block, complete; I49.5 Sick sinus syndrome; I10 Essential (primary) hypertension; E78.5 Hyperlipidemia, unspecified; Z79.899 Other long term (current) drug therapy; R06.02 Shortness of breath; G47.33 Obstructive sleep apnea (adult) (pediatric); I25.10 Atherosclerotic heart disease of native coronary artery without angina pectoris; N40.0 Benign prostatic hyperplasia without lower urinary tract symptoms
CPT/HCPCS: 33208; 71047; 99152; 99153; 99221; J7040; J7050; Q9967; A4216; C1894; G0378

== ENCOUNTER → 2023-09-19 | Outpatient (CLI) | payer MEDICARE, SELFPAY ==
[2023-09-19 09:16] LABS: Anion Gap 4 (5-15); BUN 25 mg/dL (7-18); BUN/Creat Ratio 21.6 RATIO (10-20); Calcium,Total 9.2 mg/dL (8.5-10.1); Chloride 107 mmol/L (98-107); Creatinine, Serum 1.16 mg/dL (0.70-1.30); EST Glomerular Filtration Rate 63 mL/min (>60); Est Glom Filt Rate - Afr Amer 76 mL/min (>60); Glucose 121 mg/dL (74-106); Potassium 4.4 mmol/L (3.5-5.1); Sodium Level 138 mmol/L (136-145)
== END | disposition home or self-care (01) ==
LOC: LAB 08:15
PROVIDERS: PCP Internal Medicine; Referring Provider Physician Assistant Medical; Visit Provider Physician Assistant Medical
DX: Z51.81 Encounter for therapeutic drug level monitoring (principal); Z79.899 Other long term (current) drug therapy; M25.473 Effusion, unspecified ankle
CPT/HCPCS: 36415; 80048

== ENCOUNTER → 2023-12-06 | Outpatient (CLI) | payer MEDICARE, SELFPAY ==
[2023-12-06 13:20] LABS: Absolute Lymphocyte Count 1.33 X10^3/uL (0.83-4.51); Absolute Neutrophil Count 6.4 X10^3/uL (2.0-7.7); Basophil# 0.04 X10^3/uL; Basophil% 0.5 % (0-1); Eosinophil# 0.21 X10^3/uL; Eosinophils% 2.4 % (0-5); Hematocrit 45.2 % (40-54); Hemoglobin 14.6 g/dL (13.0-16.5); Lymphocyte # 1.33 X10^3/ul (0.83-4.51); Lymphocyte % 15.3 % (19-41); Mean Corp Hgb Conc 32.3 g/dL (32-36); Mean Corpuscular Hgb 31.3 pg (27.0-32.0); Mean Platelet Vol. 11.6 fl (6.2-12.0); Monocyte% 8.1 % (0-10); NRBC Flagged by Analyzer 0 % (0-5); Neutrophil # 6.37 X10^3/uL (2.7-7.7); Neutrophil % 73.5 % (47-70); Platelet Count 130 K/mm3 (150-450); RBC Distribution Width CV 15.3 % (11.6-14.6); RBC Distribution Width SD 54.1 fl (35.1-43.9); Red Blood Count 4.66 M/mm3 (4.6-6.2); White Blood Count 8.7 K/mm3 (4.4-11.0)
[2023-12-06 14:05] LABS: BNP,B-Type NATRIURETIC PEPTIDE 879.4 pg/mL (0-100)
[2023-12-06 14:08] LABS: Anion Gap 5 (5-15); BUN 32 mg/dL (7-18); BUN/Creat Ratio 20.5 RATIO (10-20); Calcium,Total 8.5 mg/dL (8.5-10.1); Chloride 108 mmol/L (98-107); Creatinine, Serum 1.56 mg/dL (0.70-1.30); EST Glomerular Filtration Rate 45 mL/min (>60); Est Glom Filt Rate - Afr Amer 54 mL/min (>60); Glucose 101 mg/dL (74-106); Potassium 4.5 mmol/L (3.5-5.1); Sodium Level 138 mmol/L (136-145)
== END | disposition home or self-care (01) ==
LOC: LAB 12:15
PROVIDERS: PCP Internal Medicine; Referring Provider Physician Assistant Medical; Visit Provider Physician Assistant Medical
DX: R06.09 Other forms of dyspnea (principal)
CPT/HCPCS: 36415; 80048; 83880; 85025

== ENCOUNTER → 2023-12-30 | Outpatient (CLI) | payer MEDICARE, SELFPAY ==
[2023-12-30 16:22] LABS: Absolute Lymphocyte Count 1.56 X10^3/uL (0.83-4.51); Basophil# 0.04 X10^3/uL; Basophil% 0.5 % (0-1); Eosinophil# 0.21 X10^3/uL; Eosinophils% 2.5 % (0-5); Hematocrit 45.9 % (40-54); Lymphocyte # 1.56 X10^3/ul (0.83-4.51); Lymphocyte % 18.4 % (19-41); Mean Corp Hgb Conc 32.7 g/dL (32-36); Mean Corpuscular Hgb 31.2 pg (27.0-32.0); Mean Corpuscular Volume 95.4 fL (80-94); Mean Platelet Vol. 10.6 fl (6.2-12.0); Monocyte# 0.69 X10^3/uL; Monocyte% 8.1 % (0-10); NRBC Flagged by Analyzer 0 % (0-5); Neutrophil # 5.98 X10^3/uL (2.7-7.7); Neutrophil % 70.3 % (47-70); Platelet Count 141 K/mm3 (150-450); RBC Distribution Width CV 14.6 % (11.6-14.6); RBC Distribution Width SD 51.5 fl (35.1-43.9); Red Blood Count 4.81 M/mm3 (4.6-6.2); White Blood Count 8.5 K/mm3 (4.4-11.0)
[2023-12-30 16:54] LABS: Anion Gap 7 (5-15); BUN 21 mg/dL (7-18); BUN/Creat Ratio 15.1 RATIO (10-20); Chloride 106 mmol/L (98-107); Creatinine, Serum 1.39 mg/dL (0.70-1.30); EST Glomerular Filtration Rate 51 mL/min (>60); Est Glom Filt Rate - Afr Amer 62 mL/min (>60); Glucose 102 mg/dL (74-106); Magnesium 2.2 mg/dL (1.6-2.6); Potassium 3.9 mmol/L (3.5-5.1); Sodium Level 139 mmol/L (136-145); Thyroid Stim Hormone (TSH) 1.26 uIU/mL (0.358-3.74)
== END | disposition home or self-care (01) ==
LOC: LAB 15:59
PROVIDERS: PCP Internal Medicine; Referring Provider Physician Assistant Medical; Visit Provider Physician Assistant Medical
DX: I44.2 Atrioventricular block, complete (principal); I47.29 Other ventricular tachycardia; R06.09 Other forms of dyspnea; Z95.0 Presence of cardiac pacemaker
CPT/HCPCS: 36415; 80048; 83735; 84443; 85025

== ENCOUNTER → 2024-01-17 | Outpatient (CLI) | payer MEDICARE, SELFPAY ==
--- NOTE | 2024-01-17 10:55 | ECHOD_ITS ---
Reason For Study: DYSPNEA Procedure This was a 2D Doppler, Color Flow transthoracic echocardiogram. Exam performed in department. Left Ventricle Normal LV size. Severe concentric left ventricular hypertrophy. The left ventricular ejection fraction is 45 %. There is mild global hypokinesis of the left ventricle. Right Ventricle Normal RV size. ICD or pacer leads identified within the right ventricle. Normal systolic function. Atria The left atrium is moderately enlarged. The right atrium is mildly enlarged. Mitral Valve Bileaflet diffuse mitral valve thickening. Mild (1+) eccentric mitral valve insufficiency. Tricuspid Valve Normal tricuspid valve. Mild (1+) tricuspid valve insufficiency. Pulmonary artery systolic pressure is 44 mmHg. Aortic Valve Trisinus/trileaflet aortic valve. Great Vessels Mildly dilated aortic root. The pulmonary artery is normal size. Normal inferior vena cava. Pericardium/Pleural No pericardial effusion. MMode/2D Measurements & Calculations LVIDd: 3.8 cm IVSd: 1.7 cm Ao root diam: 4.1 cm LVIDs: 3.1 cm LVPWd: 2.2 cm FS: 17.4 % LAV(MOD-bp): 92.8 ml LVAd ap4: 33.8 cm2 SV(MOD-sp4): 40.8 ml LAV(MOD-bp) Indexed: 44.6 ml/m2 LVLd ap4: 9.2 cm LAV(MOD-sp2): 76.9 ml EDV(MOD-sp4): 100.9 ml LAV(MOD-sp4): 99.2 ml EDV(sp4-el): 105.5 ml LVAs ap4: 24.7 cm2 LVLs ap4: 8.6 cm ESV(MOD-sp4): 60.1 ml ESV(sp4-el): 60.2 ml EF(MOD-sp4): 40.4 % EF(sp4-el): 42.9 % SV(sp4-el): 45.3 ml LA dimension(2D): 5.1 cm LA A4 area: 28.9 cm2 RA A4 area: 23.1 cm2 TAPSE: 1.3 cm Doppler Measurements & Calculations MV E max maria teresa: 75.3 cm/sec Ao V2 max: 101.5 cm/sec LV V1 max: 80.7 cm/sec Ao max P.1 mmHg LV V1 max P.6 mmHg Ao V2 mean: 67.1 cm/sec LV V1 mean P.6 mmHg Ao mean P.2 mmHg LV V1 mean: 58.1 cm/sec Ao V2 VTI: 17.1 cm LV V1 VTI: 13.5 cm AV (velocity ratio): 0.79 PA V2 max: 63.7 cm/sec PI end-d maria teresa: 144.7 cm/sec TR max maria teresa: 320.7 cm/sec PA V2 mean: 43.4 cm/sec TR max P.1 mmHg ECHO/Echo Complete Interpretation Summary Normal LV size. Severe concentric left ventricular hypertrophy. The left ventricular ejection fraction is 45 %. The left atrium is moderately enlarged. The right atrium is mildly enlarged. Pulmonary artery systolic pressure is 44 mmHg. Ordering Physician: Jenna Song Referring Physician: Jenna Song Performed By: Korina Blair and Student
== END | disposition home or self-care (01) ==
LOC: CVS 10:54
PROVIDERS: PCP Internal Medicine; Referring Provider Physician Assistant Medical; Visit Provider Physician Assistant Medical
DX: R06.09 Other forms of dyspnea (principal)
CPT/HCPCS: 93306

== ENCOUNTER 2024-01-27 09:57 | Outpatient (CLI) | payer MEDICARE, SELFPAY ==
[2024-01-27 08:09] VITALS: BMI 27.8
--- NOTE | 2024-01-27 10:00 | ECHOTEE_ITS ---
[facility] (SN [id number]) passed without difficulty. No complications were noted. Cetacaine Topical [place] given X3 orally. Versed 2 mg given slow IVP. Fentanyl 50 mcg given slow IVP. Performed a rapid injection of agitated mix of 9 cc saline and 1cc air to assess for atrial septal defect. Left Ventricle Normal LV size. The left ventricular ejection fraction is 50 %. No regional wall motion abnormalities noted. Right Ventricle Normal RV size. ICD or pacer leads identified within the right ventricle. Normal systolic function. Atria Patent foramen ovale. The left atrium is moderately enlarged. No thrombus is detected in the left atrial appendage. ICD or pacer leads identified within the right atrium. Mitral Valve Normal mitral valve. Mild (1+) eccentric mitral valve insufficiency. Tricuspid Valve Normal tricuspid valve. Aortic Valve Trisinus/trileaflet aortic valve. Pulmonic Valve Normal pulmonic valve. Vessels Normal aortic root. Mild atherosclerosis of the aortic arch. The pulmonary artery is normal size. Pericardium No pericardial effusion. ECHO/Echo Transesophageal (RUT) Interpretation Summary Normal LV size. The left ventricular ejection fraction is 50 %. The left atrium is moderately enlarged. No thrombus is detected in the left atrial appendage. Ordering Physician: Jenna Song Referring Physician: Sanford Newton Performed By: Korina Solano RCS
--- NOTE | 2024-01-27 12:57 | PCM.OP.PRO ---
Procedure Report Date of Procedure: 01/27/24 DC cardioversion. 88-year-old male with a history of persistent atrial fibrillation. Symptomatic. Patient was seen by Dr. Serna of the critical care division after the patient had presented in the postabsorptive nonsedated state. Informed consent was obtained. The patient was administered 40 mg of intravenous propofol after he had had a RUT which demonstrated no evidence of left atrial appendage thrombus present. Anterior-posterior pads were applied. 200 J of synchronized biphasic DC cardioversion energy were applied with prompt reversal to AV sequentially paced rhythm. This will be interrogated again. Conclusion: Successful DC cardioversion from atrial fibrillation to AV sequentially paced rhythm. Continue current medications including amiodarone. Continue anticoagulation. If patient fails, and symptomatic, should consider AV amanda ablation.
--- NOTE | 2024-01-27 13:06 | PCM.OP.PRO ---
Procedure Report Date of Procedure: 01/27/24 CONSCIOUS SEDATION REPORT DATE OF SERVICE: January 27, 2024 BRIEF HISTORY OF PRESENT ILLNESS: The patient is an 88-year-old male who presented to [facility] to undergo an elective cardioversion due to underlying atrial fibrillation. The patient did undergo a RUT earlier today, which demonstrated an ejection fraction of approximately 55%. The patient is systemically anticoagulated on Xarelto. He denied any prior anesthetic complications. PHYSICAL EXAMINATION: VITAL SIGNS: Reviewed and were acceptable. GENERAL: The patient is a male, in no apparent distress, speaking in full sentences. HEENT: Normocephalic, atraumatic. Mucous membranes are moist and pink. Good mouth opening noted. Trachea is midline. CHEST: S1, S2 irregularly irregular. No murmurs, rubs or gallops were noted. LUNGS: Clear to auscultation bilaterally without appreciable wheezes, rales or rhonchi. ABDOMEN: Soft, nontender, nondistended. Positive bowel sounds. EXTREMITIES: There is no clubbing, cyanosis or edema. ASA Class: II DESCRIPTION OF PROCEDURE: After confirmation of informed consent, the patient's anesthesia plan was reviewed in detail. Propofol was chosen. Risks and benefits were reviewed and the patient agreed to proceed. At 1248, the patient was given 40 mg of propofol. The patient achieved an appropriate level of sedation and was given a 200 joule synchronized cardioversion by Dr. Newton at the bedside. This was successful in achieving normal sinus rhythm. The patient was monitored until 1302, at which time he reached his baseline mental status and function. The patient tolerated the procedure well. COMPLICATIONS: None ESTIMATED BLOOD LOSS: None RECOMMENDATIONS: Okay to recover in usual fashion. Procedures Pulmonary Pulmonary Procedures /Diagnostic Testin Con Sedation
== END 2024-01-27 13:55 | disposition home or self-care (01) ==
PROVIDERS: PCP Internal Medicine; Referring Provider Internal Medicine Cardiovascular Disease; Visit Provider Internal Medicine Cardiovascular Disease
DX: I48.19 Other persistent atrial fibrillation (principal); I42.9 Cardiomyopathy, unspecified
CPT/HCPCS: 92960; 93005; 93312; 93320; 93325; J7040; A4216

== ENCOUNTER → 2024-02-18 | Outpatient (CLI) | payer MEDICARE, SELFPAY ==
[2024-02-18 15:15] LABS: Anion Gap 7 (5-15); BUN 42 mg/dL (7-18); BUN/Creat Ratio 23.2 RATIO (10-20); Calcium,Total 9.1 mg/dL (8.5-10.1); Chloride 107 mmol/L (98-107); Creatinine, Serum 1.81 mg/dL (0.70-1.30); EST Glomerular Filtration Rate 38 mL/min (>60); Est Glom Filt Rate - Afr Amer 46 mL/min (>60); Glucose 105 mg/dL (74-106); Sodium Level 137 mmol/L (136-145)
== END | disposition home or self-care (01) ==
LOC: LAB 13:47
PROVIDERS: PCP Internal Medicine; Referring Provider Physician Assistant Medical; Visit Provider Physician Assistant Medical
DX: I42.9 Cardiomyopathy, unspecified (principal); I48.19 Other persistent atrial fibrillation
CPT/HCPCS: 36415; 80048

== ENCOUNTER → 2024-02-24 | Day surgery (SDC) | payer MEDICARE, SELFPAY ==
[2024-02-21 08:02] VITALS: BMI 28.0
== END | disposition home or self-care (01) ==
LOC: CLSP 10:28
PROVIDERS: PCP Internal Medicine; Referring Provider Internal Medicine Cardiovascular Disease; Visit Provider Internal Medicine Cardiovascular Disease
DX: Z45.010 Encounter for checking and testing of cardiac pacemaker pulse generator [battery] (principal); I48.0 Paroxysmal atrial fibrillation; I48.19 Other persistent atrial fibrillation; I44.2 Atrioventricular block, complete; I42.9 Cardiomyopathy, unspecified
CPT/HCPCS: 93005

== ENCOUNTER → 2024-03-05 | Outpatient (CLI) | payer MEDICARE, SELFPAY ==
--- NOTE | 2024-03-05 10:03 | CDU_ITS ---
Reason For Study: Retinal ischemia Rt. Velocities/BP Lt. Velocities/BP Prox CCA 54.1/9.7 cm/sec. Prox CCA 91.6/15.7 cm/sec. Mid CCA 51.3/11.6 cm/sec. Mid CCA 76.2/11.3 cm/sec. Dist CCA 48.5/11.6 cm/sec. Dist CCA 60.8/13.5 cm/sec. Prox ICA 33.7/8 cm/sec. Prox ICA 47.7/10.2 cm/sec. Mid ICA 47.2/12.3 cm/sec. Mid ICA 41.4/11.1 cm/sec. Dist ICA 53.6/11.6 cm/sec. Dist ICA 42.8/12.6 cm/sec. Rt. ICA/CCA = 1.04. Lt. ICA/CCA = 0.63. Prox ECA 61.7/6.9 cm/sec. Prox ECA 56.4/6.9 cm/sec. Rt. Vert. 30.9/7.7 cm/sec. Lt. Vert. 48.5/11.6 cm/sec. Right Extracranial There is intimal thickening but no significant atherosclerotic plaque noted in the right common carotid artery. There is heterogeneous, irregular atherosclerotic plaque noted in the right internal carotid artery. There is heterogeneous, irregular atherosclerotic plaque noted in the right external carotid artery. Antegrade flow is noted in the right vertebral artery. Left Extracranial There is intimal thickening but no significant atherosclerotic plaque noted in the left common carotid artery. There is heterogeneous, irregular atherosclerotic plaque noted in the left internal carotid artery. There is intimal thickening but no significant atherosclerotic plaque noted in the left external carotid artery. Antegrade flow is noted in the left vertebral artery. Procedure Carotid Duplex 65133. This is a Carotid Duplex examination using B-mode, color flow and specral Doppler. Exam performed in department. VL/Carotid Duplex Ultrasound Interpretation Summary Mild (<50%) stenosis right extracranial internal carotid. Mild (<50%) stenosis left extracranial internal carotid. Patent and antegrade vertebrals bilaterally. Ordering Physician: Adam Gutierrez Referring Physician: Aubrie Murguia Performed By: Kylie Paul RVT
== END | disposition home or self-care (01) ==
LOC: CVS 09:58
PROVIDERS: PCP Internal Medicine; Referring Provider Ophthalmology; Visit Provider Ophthalmology
DX: H35.82 Retinal ischemia (principal)
CPT/HCPCS: 93880

== ENCOUNTER → 2024-03-07 | Outpatient (CLI) | payer MEDICARE, SELFPAY ==
[2024-03-07 08:17] LABS: Mucous, Urine 0 SEEN /hpf (<or=2+); Red Blood Cells-Urine 0 SEEN /hpf (0-5); Squamous Epithelial Cells - UA 0 SEEN /hpf (0-5)
[2024-03-07 09:19] LABS: Color, Urine Yellow (Yellow); Glucose, Dipstick 1000 mg/dl (Normal); Ketone-Dipstick 5 mg/dl (Negative); Leukocyte Esterase-Dipstick 500 /ul (Negative); Nitrite-Dipstick Positive (Negative); Occult Blood-Urine 25 /ul (Negative); Protein-Dipstick 100 mg/dl (Negative); Specific Gravity, Urine 1.015 (1.002-1.030); Urine Bilirubin Dipstick Negative (Negative); Urine Clarity Cloudy (Clear); Urine Urobilinogen 4 mg/dl (Normal)
[2024-03-07 09:24] LABS: White Blood Cells >100 SEEN /hpf (0-5)
[2024-03-07 09:25] LABS: Bacteria 1+ /hpf (None Seen)
== END | disposition home or self-care (01) ==
LOC: LAB 08:00 → LABSPEC 08:12
PROVIDERS: PCP Internal Medicine; Referring Provider Physician Assistant Medical; Visit Provider Physician Assistant Medical
DX: R31.9 Hematuria, unspecified (principal)
CPT/HCPCS: 81001

== ENCOUNTER → 2024-03-10 | Outpatient (CLI) | payer MEDICARE, SELFPAY ==
[2024-03-10 12:40] LABS: Absolute Lymphocyte Count 1.13 X10^3/uL (0.83-4.51); Absolute Neutrophil Count 4.8 X10^3/uL (2.0-7.7); Basophil# 0.06 X10^3/uL; Basophil% 0.9 % (0-1); Eosinophil# 0.31 X10^3/uL; Eosinophils% 4.4 % (0-5); Hematocrit 51.7 % (40-54); Hemoglobin 16.6 g/dL (13.0-16.5); Lymphocyte # 1.13 X10^3/ul (0.83-4.51); Lymphocyte % 16.2 % (19-41); Mean Corp Hgb Conc 32.1 g/dL (32-36); Mean Corpuscular Hgb 31.1 pg (27.0-32.0); Mean Corpuscular Volume 96.8 fL (80-94); Mean Platelet Vol. 11.5 fl (6.2-12.0); Monocyte# 0.67 X10^3/uL; Monocyte% 9.6 % (0-10); NRBC Flagged by Analyzer 0 % (0-5); Neutrophil # 4.78 X10^3/uL (2.7-7.7); Neutrophil % 68.6 % (47-70); Platelet Count 126 K/mm3 (150-450); RBC Distribution Width CV 15.4 % (11.6-14.6); RBC Distribution Width SD 54.5 fl (35.1-43.9); Red Blood Count 5.34 M/mm3 (4.6-6.2)
[2024-03-10 13:19] LABS: Anion Gap 4 (5-15); BUN 30 mg/dL (7-18); BUN/Creat Ratio 20.4 RATIO (10-20); Calcium,Total 9.7 mg/dL (8.5-10.1); Chloride 106 mmol/L (98-107); Creatinine, Serum 1.47 mg/dL (0.70-1.30); EST Glomerular Filtration Rate 48 mL/min (>60); Est Glom Filt Rate - Afr Amer 58 mL/min (>60); Glucose 100 mg/dL (74-106); Sodium Level 138 mmol/L (136-145)
== END | disposition home or self-care (01) ==
LOC: LAB 11:18
PROVIDERS: PCP Internal Medicine; Referring Provider Physician Assistant Medical; Visit Provider Physician Assistant Medical
DX: I48.0 Paroxysmal atrial fibrillation (principal); R06.09 Other forms of dyspnea
CPT/HCPCS: 36415; 80048; 85025

== ENCOUNTER → 2024-03-30 | Outpatient (CLI) | payer MEDICARE, SELFPAY ==
[2024-03-30 15:35] LABS: Erythrocyte Sedimentation Rate 2 mm/hr (0-20)
[2024-03-30 16:20] LABS: ALB/GLOB Ratio 1.1 RATIO (0.9-2.4); AST(SGOT) 31 U/L (15-37); Alanine Aminotransfer ALT/SGPT 39 U/L (16-61); Albumin, Serum 3.8 g/dL (3.2-5.0); Alkaline Phosphatase 70 U/L (45-117); Anion Gap 7 (5-15); BUN 22 mg/dL (7-18); BUN/Creat Ratio 18.5 RATIO (10-20); CRP 9.33 mg/L (0.0-3.0); Calcium,Total 8.9 mg/dL (8.5-10.1); Chloride 104 mmol/L (98-107); Creatinine, Serum 1.19 mg/dL (0.70-1.30); EST Glomerular Filtration Rate 61 mL/min (>60); Est Glom Filt Rate - Afr Amer 74 mL/min (>60); Globulin 3.4 g/dL (2.2-4.2); Glucose 67 mg/dL (74-106); Potassium 4.3 mmol/L (3.5-5.1); Protein, Total 7.2 g/dL (6.4-8.2); Sodium Level 137 mmol/L (136-145); T4 Free Direct 1.09 ng/dL (0.76-1.46)
[2024-03-31 14:44] LABS: Absolute Lymphocyte Count 1.22 X10^3/uL (0.83-4.51); Absolute Neutrophil Count 5.2 X10^3/uL (2.0-7.7); Basophil# 0.05 X10^3/uL; Basophil% 0.7 % (0-1); Eosinophil# 0.22 X10^3/uL; Eosinophils% 2.9 % (0-5); Hemoglobin 14.1 g/dL (13.0-16.5); Lymphocyte # 1.22 X10^3/ul (0.83-4.51); Lymphocyte % 16.1 % (19-41); Mean Corpuscular Volume 96.7 fL (80-94); Mean Platelet Vol. 11.9 fl (6.2-12.0); Monocyte# 0.83 X10^3/uL; Monocyte% 10.9 % (0-10); NRBC Flagged by Analyzer 0 % (0-5); Neutrophil # 5.23 X10^3/uL (2.7-7.7); Platelet Count 126 K/mm3 (150-450); RBC Distribution Width CV 15.1 % (11.6-14.6); RBC Distribution Width SD 53.5 fl (35.1-43.9); Red Blood Count 4.55 M/mm3 (4.6-6.2); White Blood Count 7.6 K/mm3 (4.4-11.0)
== END | disposition home or self-care (01) ==
LOC: BIMLAB 11:23
PROVIDERS: PCP Internal Medicine; Referring Provider Internal Medicine; Visit Provider Internal Medicine
DX: R68.89 Other general symptoms and signs (principal); K52.9 Noninfective gastroenteritis and colitis, unspecified
CPT/HCPCS: 36415; 80053; 84439; 84443; 85025; 85652; 86140

== ENCOUNTER → 2024-04-02 | Outpatient (CLI) | payer MEDICARE, SELFPAY | END | disposition home or self-care (01) | LOC: LABSPEC 16:22 | PROVIDERS: PCP Internal Medicine; Referring Provider Urology; Visit Provider Urology | DX: R30.0 Dysuria (principal) | CPT/HCPCS: 87086; 87088; 87186 ==

== ENCOUNTER 2024-04-26 15:48 | Emergency (ER) | payer MEDICARE, SELFPAY ==
[2024-04-26 15:50] VITALS: BP 155/99; PULSE 60; RESP 18; TEMP 36.4; O2SAT 96; BMI 26.7
[2024-04-26] MEDS: Diphth,Pertuss(Acell),Tet Vac 0.5 ML Vial IM (16:19)
[2024-04-26] MEDS: Lidocaine 1% /Epi 1:100 (20ml) 20 ML Vial INFILT (16:19)
[2024-04-26 16:49] VITALS: BP 148/89; PULSE 60; RESP 17; O2SAT 98
[2024-04-26 16:52] VITALS: O2SAT 97
[2024-04-26 17:00] VITALS: BP 148/89; PULSE 60; RESP 16; O2SAT 98
[2024-04-26 18:16] VITALS: BP 137/62; PULSE 70; RESP 15; TEMP 36.4; O2SAT 99
== END 2024-04-26 18:18 | disposition home or self-care (01) ==
PROVIDERS: Emergency Provider Emergency Medicine; PCP Internal Medicine; Visit Provider Emergency Medicine
DX: S01.111A Laceration without foreign body of right eyelid and periocular area, initial encounter (principal); I48.19 Other persistent atrial fibrillation; Z79.01 Long term (current) use of anticoagulants; I10 Essential (primary) hypertension; E78.5 Hyperlipidemia, unspecified; W06.XXXA Fall from bed, initial encounter; Z79.899 Other long term (current) drug therapy; Z96.653 Presence of artificial knee joint, bilateral; Z96.643 Presence of artificial hip joint, bilateral; M25.511 Pain in right shoulder; S09.90XA Unspecified injury of head, initial encounter
CPT/HCPCS: 12011; 70450; 70486; 72125; 73030; 90471; 90715; 99282

== ENCOUNTER 2024-04-27 10:16 | Emergency (ER) | payer MEDICARE, SELFPAY ==
[2024-04-27 10:17] VITALS: BP 146/81; PULSE 62; RESP 18; TEMP 36.6; O2SAT 100; BMI 26.6
[2024-04-27 13:44] VITALS: BP 140/81; PULSE 62; RESP 14; TEMP 36.6; O2SAT 96
== END 2024-04-27 13:45 | disposition home or self-care (01) ==
PROVIDERS: Emergency Provider Emergency Medicine; PCP Internal Medicine; Visit Provider Emergency Medicine
DX: Z48.00 Encounter for change or removal of nonsurgical wound dressing (principal); I48.0 Paroxysmal atrial fibrillation; S01.101A Unspecified open wound of right eyelid and periocular area, initial encounter; Z79.01 Long term (current) use of anticoagulants; I10 Essential (primary) hypertension; E78.5 Hyperlipidemia, unspecified; W06.XXXA Fall from bed, initial encounter; R04.0 Epistaxis; G47.33 Obstructive sleep apnea (adult) (pediatric)
CPT/HCPCS: 99282

== ENCOUNTER → 2024-05-06 | Outpatient (CLI) | payer MEDICARE, SELFPAY ==
--- NOTE | 2024-05-06 14:07 | ST.MBS ---
Modified Barium Swallow Patient Information Study Date: 05/06/24 Study Time: 13:00 Direct Billable Minutes: 93 Total Minutes procedure & reportin Diagnosis: Dysphagia R13.10 Referring Physician: Aubrie Murguia Reason for Referral: Objectively assess swallow function, assess risk for aspiration, and determine recommendations for least restrictive diet textures and compensatory strategies to improve safety of swallow. Medical History: PMH: Swallowing disorder, Gastroenteritis, Persistent atrial fibrillation (managed by medication per pt), Abrasion of right forearm, Change in weight, Change in nail appearance, Presence of cardiac pacemaker (09/09/23), AV block, 1st degree, LBBB, Sick sinus syndrome, Flu vaccine need, Rhinitis, Left elbow pain, Bradycardia, HLD, BPH, Cataracts bilateral, REY, Melanoma, Night terrors (managed by medication per pt), Chronic headaches, Cancer, History of blood transfusion, History of back problems, Arthritis, Premature ventricular contractions, Osteoarthritis, Actinic keratosis, Enlarged prostate with lower urinary tract symptoms (LUTS), GI bleed, Paroxysmal supraventricular tachycardia, HTN (See EMR for full PMH). The patient was recommended for MBSS by PCP due to patient reporting swallowing difficulty to her. Per patient, he has trouble swallowing pills, large gulps of water, and occ he feels like food goes down the wrong way. He also had recent weight loss of 10 pounds, but he attributed this weight loss to debility from A fib this past year. He reports this issue is resolved w/ medication. Of note, he recently fell into his night stand and onto his floor during a night terror and injured his head (stitches required) and nose (swelling). He went to the ED for this fall and all imaging of brain, neck, face, and shoulder were negative for acute abnormalities. Current Diet Ordered: Regular textures / Thin liquids Dentition: Natural Teeth Mental Status: WNL Respiratory Status: Oxygenating on Room Air Penetration-Aspiration Scale Penetration-Aspiration Scale: OBJECTIVE ASSESSMENT OF SWALLOW FUNCTION (QUANTITATIVE ? PER TRIAL): PENETRATION / ASPIRATION SCALE (FERNANDEZ): 1 = does not enter airway 2 = enters airway/above vocal folds/ejected 3 = enters airway/above vocal folds/not ejected 4 = enters airway/contacts vocal folds/ejected 5 = enters airway/contacts vocal folds/not ejected 6 = enters airway/below vocal folds/ejected 7 = enters airway/below vocal folds/not ejected despite effort 8 = enters airway/below vocal folds/no effort VIDEOFLOROSCOPIC SCALE SCORE (FERNANDEZ): Grade I = aspiration of material that has penetrated into the laryngeal vestibule, intact cough reflex Grade II = aspiration < 10 % of the bolus, intact cough reflex Grade III = aspiration of < 10 % of the bolus, reduced cough reflex or aspiration of > 10 % of the bolus, intact cough reflex Grade IV = aspiration of > 10 % of the bolus, reduced cough reflex Penetration-Aspiration Scale Score Thin Liquid via teaspoon: Result: 2= enter airway/above vocal folds/ejected Thin Liquid via teaspoon Trial 2: Result: 2= enter airway/above vocal folds/ejected Thin Liquid via large single sip: cup: Result: 2= enter airway/above vocal folds/ejected [place] Thick Liquid via large single sip: cup: Result: 2= enter airway/above vocal folds/ejected Pudding via teaspoon: Result: 1= does not enter airway Comment: Esophageal screen - Retention of barium in the mid and lower esophagus w/ retrograde flow to the upper esophagus. Thin Liquid via sequential sips:straw: Result: 2= enter airway/above vocal folds/ejected Comment: Esophageal screen - Liquid wash initially somewhat cleared barium pudding; however, pt then had retrograde flow of barium liquid from the lower to upper esophagus. 1/2 Cookie coated in barium pudding: Result: 1= does not enter airway Comment: Esophageal screen - Retention of cookie in lower esophagus w/ retrograde flow to the mid esophagus. Barium tablet w/ water: Result: 1= does not enter airway Comment: Esophageal screen - Complete clearance. Oral Phase Labial Seal: Interlabial escape, no progression to anterior lip Tongue Control During Bolus Hold: Posterior escape of greater than half of bolus Bolus Preparation/Mastication: Timely and efficient chewing and mashing Bolus Transport/Lingual Motion: Brisk tongue motion Oral Residue: Residue collection on oral structures Pharyngeal Phase Initiation of Pharyngeal Swallow: Bolus head in pyriforms Soft Palate Elevation: Trace column of contrast/air between soft palate and pharyngeal wall Laryngeal Elevation: Comp. Superior move thyroid cart w/comp. apprx arytenoid cart-epig pet Anterior Hyoid Excursion: Partial anterior movement Epiglottic Movement: Complete inversion Laryngeal Vestibule Closure at Height of Swallow: Incomplete; narrow column of air/contrast in laryngeal vestibule Pharyngeal Stripping Wave: Present - complete Pharyngoesophageal Segment Opening: Parital distension and partial duration; parital obstruction of flow Tongue Base Retraction: Narrow column of contrast between tongue base & post. pharyngeal wall Pharyngeal Residue: Trace residue within or on pharyngeal structures Esophageal Phase Esophageal Clearance: Esophageal retention w/ retrograde flow below pharyngoesophageal seg. Diagnosis/Impression Diagnosis: Mild oropharyngeal dysphagia R13.12; Esophageal dysphagia R13.14 Impression: The oral phase is primarily marked by... -Decreased bolus control w/ posterior loss of >1/2 of thin liquid bolus to the pyriforms prior to swallow onset in certain trials. The pharyngeal phase is primarily marked by... -Delayed swallow onset. -Mildly decreased tongue base retraction w/ certain thin liquid trials. -Decreased anterior hyoid excursion. Consistent laryngeal penetration during the swallow; however, the barium contrast fully ejected as the swallow was completed. No aspiration was observed. The esophageal phase is primarily marked by... -Esophageal retention of thin liquids, pudding, and cookie w/ retrograde flow. Thin liquids demonstrated retrograde flow to the upper esophagus. Patient is at high risk for reflux aspiration. Recommendations Diet: Regular Textures and Thin Liquids Comment: STOP eating/drinking if increased s/s of reflux, sensation of retention, or regurgitation despite use of recommended compensatory strategies below and resume at a later time. Compensatory Strategies: Small Bites, Small Sips, Slow Rate, Alternate bites/solids and sips/liquids and Sitting upright (During and 60min after meal) Recommend Repeat Modified Barium Swallow: No Need for Skilled Speech Therapy Services: Yes Comment: Will recommend OP ST to train the patient in recommended aspiration and reflux aspiration precautions, as well as oropharyngeal exercises to address mild oropharyngeal impairments (decreased bolus control, delayed swallow onset, and decreased tongue base retraction). Consider implementation of lingual resistance, Laina, and Betsey. Recommended Referrals: GI Consult Education Completed: 1. Described result of evaluation. and 2. Pt understands evaluation & agrees with goals and treatment plan. Status Active ST Patient: Active Contact Information [facility] Speech Therapy:: Wanda Maldonado M.A. CCC-HUMAN RESOURCES BENEFITS COORDINATOR? Speech-Language Pathologist?? [facility] [id number] [place] [address]? ?? [phone]
== END | disposition home or self-care (01) ==
LOC: RAD 12:45
PROVIDERS: PCP Internal Medicine; Referring Provider Internal Medicine; Visit Provider Internal Medicine
DX: R13.10 Dysphagia, unspecified (principal)
CPT/HCPCS: 74230; 92611